=== PATIENT | male | born 1965 | race Hispanic/Latino ===

== ENCOUNTER 2017-08-02 12:58 | Inpatient (IN) | payer MEDICAID, OTHER ==
[2017-08-02 14:27] LABS: BASO % 0.4 % (0.0-2.0); EOS # 0.1 K/uL (0.0-0.7); EOS % 0.8 % (0.0-4.0); HEMOGLOBIN 15.2 g/dL (12.0-18.0); LYMPH # 1.6 K/uL (1.0-4.3); LYMPH % 20.1 % (20.0-40.0); MEAN CELL VOLUME 90.3 fL (80.0-94.0); MEAN CORPUSCULAR HGB CONC 34.3 g/dL (33.0-37.0); MEAN PLATELET VOLUME 9.5 fL (7.2-11.7); MONO # 0.6 K/uL (0.0-0.8); MONO % 7.4 % (0.0-10.0); NEUT # 5.7 K/uL (1.8-7.0); NEUT % 71.3 % (50.0-75.0); RBC 4.91 Mil/uL (4.40-5.90); RED CELL DISTRIBUTION WIDTH 13.9 % (11.5-14.5)
[2017-08-02 14:39] LABS: SQUAMOUS EPITHIAL < 1 /hpf (0-5); URINE BILIRUBIN NEGATIVE (NEGATIVE); URINE BLOOD NEGATIVE (NEGATIVE); URINE CLARITY Hazy (Clear); URINE COLOR Yellow (YELLOW); URINE GLUCOSE (UA) NORMAL (Normal); URINE LEUKOCYTE ESTERASE NEG Leu/uL (Negative); URINE PROTEIN NEGATIVE (NEGATIVE); URINE UROBILINOGEN NORMAL mg/dL (0.2-1.0)
[2017-08-02 14:42] LABS: ACETAMINOPHEN < 10.0 ug/mL (10.0-30.0); SALICYLATE < 1.0 mg/dL 1
[2017-08-02 14:46] LABS: ALB/GLOB RATIO 1.2 (1.0-2.1); ALBUMIN 4.3 g/dL (3.5-5.0); ALT/SGPT 52 U/L (21-72); AST/SGOT 38 U/L (17-59); BLOOD UREA NITROGEN 14 mg/dL (9-20); CALCIUM 9.2 mg/dl (8.6-10.4); GFR AFRICAN-AMERICAN > 60; GFR NON-AFRICAN AMERICAN > 60
[2017-08-02 14:49] LABS: BARBITURATES, UR NEGATIVE (NEGATIVE); PHENCYCLIDINE, UR NEGATIVE (NEGATIVE)
[2017-08-02 14:50] LABS: BENZODIAZEPINES, UR POSITIVE (NEGATIVE); OPIATES, UR POSITIVE (NEGATIVE)
--- NOTE | 2017-08-02 15:07 | C.PDOC ---
Time Seen by Provider: 08/02/17 13:56 Chief Complaint (Nursing): Psychiatric Evaluation History Per: Patient Onset/Duration Of Symptoms: Days Current Symptoms Are (Timing): Still Present Suicide/Self Injury Attempted (Context): None Modifying Factor(s): Narcotics Severity: Moderate Associated Symptoms: Depression, Suicidal Thoughts Additional History Per: Prior Records Past Medical History Reviewed: Historical Data, Nursing Documentation, Vital Signs Vital Signs: Last Vital Signs Temp 97.8 F 08/02/17 13:24 Pulse 81 08/02/17 13:24 Resp 18 08/02/17 13:24 BP 115/78 08/02/17 13:24 Pulse Ox 95 08/02/17 13:24 - Medical History PMH: Anxiety, Bipolar Disorder, Depression, Hepatitis (C) - [facility] DETOXIFICATION SERVICES FOR SUBSTANCE ABUSE TREATMENT (12/31/15) INDIV [employer] FOR SUBSTANCE ABUSE TREATMENT, CONTINUING CARE (03/31/15) INJECT/INFUSE NEC (03/03/13) MEDICATION MANAGEMENT (12/31/15) Family History: States: Unknown Family Hx - Social History Hx Tobacco Use: Yes Hx Alcohol Use: Yes Hx Substance Use: Yes - Immunization History Hx Tetanus Toxoid Vaccination: No Hx Influenza Vaccination: Yes Hx Pneumococcal Vaccination: No Review Of Systems Except As Marked, All Systems Reviewed And Found Negative. Constitutional: Negative for: Fever Cardiovascular: Negative for: Chest Pain Respiratory: Negative for: Shortness of Breath Gastrointestinal: Negative for: Vomiting, Abdominal Pain Musculoskeletal: Negative for: Neck Pain Skin: Negative for: Rash Neurological: Negative for: Weakness, Numbness Psych: Positive for: Depression Physical Exam - Physical Exam Appears: Non-toxic, No Acute Distress Skin: Normal Color, Warm, Dry, No Rash Head: Atraumatic, Normacephalic Eye(s): bilateral: PERRL, EOMI Neck: Normal ROM, Supple Cardiovascular: Rhythm Regular Respiratory: Normal Breath Sounds, No Accessory Muscle Use Gastrointestinal/Abdominal: Soft, No Tenderness Extremity: Normal ROM Neurological/Psych: Oriented x3, Normal Motor, Normal Sensation ED Course And Treatment - Laboratory Results Result Diagrams: 08/02/17 14:22 08/02/17 14:22 Lab Interpretation: No Acute Changes O2 Sat by Pulse Oximetry: 95 Pulse Ox Interpretation: Normal Progress Note: Pt is medically stable for psychiatric admission. Disposition Counseled Patient/Family Regarding: Studies Performed, Diagnosis, Smoking Cessation - Disposition Disposition: HOSPITALIZED Disposition Time: 15:07 Condition: STABLE - Clinical Impression Clinical Impression: Depression, Drug abuse Decision To Admit - Pt Status Changed To: Hospital Disposition Of: Inpatient - Admit Certification Admit to Inpatient:: After my assessment, the patient will require hospitalization for at least two midnights. This is because of the severity of symptoms shown, intensity of services needed, and/or the medical risk in this patient being treated as an outpatient. - InPatient: Physician Admission Certification: I certify that this patient requires 2 or more midnights of care for the following reason:: Psych. - . Bed Request Type: Psychiatry Admitting Physician: Jarrod Nelson Patient Diagnosis: Depression, Drug abuse
--- NOTE | 2017-08-02 16:16 | RAD ---
HISTORY: Psych clearance. h/o TB in 80's. Asymptomatic. COMPARISON: 08/26/2013 FINDINGS: LUNGS: No active pulmonary disease. PLEURA: No significant pleural effusion identified, no pneumothorax apparent. CARDIOVASCULAR: Normal. OSSEOUS STRUCTURES: No significant abnormalities. VISUALIZED UPPER ABDOMEN: Normal. OTHER FINDINGS: None. IMPRESSION: No active disease.
--- NOTE | 2017-08-02 18:50 | PCM.BM ---
<Sabrina Sanchezan - Last Filed: 08/02/17 18:49> Treatment Plan Problems - Problems identified on initial assessmt Depression Date Initiated: 08/02/17 Time Initiated: 18:49 Assessment reference: NA Status: Active Comment: Long Hx of heroin IV abuse Treatment assets and liabiliti Patient Assests: adapts well, cooperative, negotiates basic needs, cognitively intact Patient Liabilities: live alone, substance abuse - Milieu Protocol Maintain good personal hygiene: daily Encourage regular showers, daily Remind patient to perform daily oral care Conduct patient checks and document Observation sheet: Q15 minutes Maintain personal safety: every shift Educate patient to report safety concerns to staff, every shift Monitor environment for contraband/sharps Medication safety: Monitor for expected outcome, potential side effects: every shift, Assess barriers to learning: every shift, Assess readiness for medication education: every shift <Dayana Peraza - Last Filed: 08/03/17 14:59> Family Contact Family involvement: Patient does not wish Family/SO involvement Family contact: Patient declines to allow family contact at present - Goals for Treatment Patient goals for treatment: "I want to go to an [facility]. " Discharge/Continuing Care - Education Needs Education Needs: Patient Medication, Patient Diagnosis/Disease Process, Patient Coping Skills, Patient Aftercare Safety Plan - Discharge Discharge Criteria: Free of Suicidal thoughts, Normal sleep pattern, Ability to care for self, No longer exhibiting s/s of withdrawal, Reduction of target symptoms Discharge to:: Home - Treatment Team Participation Discussed with Family/SO: No Was Patient/Family/SO present at Treatment Team Meeting: Yes <Ilan Conde - Last Filed: 08/03/17 15:00> - Diagnosis (1) Depression Status: Acute Interventions: 08/03/17 15:00 * Assess/adjust medications daily and /or as needed * See patient on an individual basis 7x/week to assess symptoms of depression * Monitor for side effects & effectiveness of medications * (2) Opioid use disorder, severe, dependence Status: Acute Interventions: 08/03/17 15:00 * Assess 7x/week regarding severity of withdrawal * Educate regarding risks, benefits, side effects and alternatives of medications * Use Motivational Interviewing for abstinence * Use CBT for relapse prevention * Medication management for withdrawal symptoms * Encourage medication assisted treatment *
--- NOTE | 2017-08-03 13:48 | PCM.PSYCH ---
Initial Psychiatric Evaluation - Initial Psychiatric Evaluation Type of Admission: Voluntary Legal Status: Capacity Chief Complaint (in patient's own words): "I am very depressed" History of Present Illness and Precipitating Events: The patient is seen, chart reviewed, case discussed. He is well known to the insurance underwriter sales from patient's previous admission. This is a 52-year-old male, single, homeless, unemployed. He stays with friends at times. He comes here with depressive symptoms and suicidal ideation. Currently, he denies feeling suicidal because he is feeling better here. However, he still has anhedonia, low self-esteem and is pessimistic. He states he has no place to go but he will try to get into a rehab. He uses 5-6 bags IV, last use was yesterday. He denies using other drugs but he drinks about 10 cans of beer every day, but denies any withdrawal symptoms. He smokes MJ and uses Xanax "off an on" No seizures He was released from retirement in Jan 2017 and stayed with his mother until he relapsed "quickly." Psychiatric history: He was admitted more than 5 times. Alleged suicide attempt last year. He was on Seroquel, Remeron and Neurontin in the past. Family psych history: None known Medical history: Hepatitis C. Current Medications: Active Medications Generic Name Dose Route Start Last Admin Trade Name Freq PRN Reason Stop Dose Admin Clonidine HCl 0.1 mg 08/02/17 17:40 Catapres PO Q6 PRN opiate withdrawal s/s Cyclobenzaprine HCl 10 mg 08/02/17 17:37 08/03/17 12:34 Flexeril PO 10 mg Q6 PRN Administration Muscle spasm Escitalopram Oxalate 10 mg 08/03/17 12:30 08/03/17 12:25 Lexapro PO 10 mg DAILY PAULINA Administration Ibuprofen 600 mg 08/02/17 17:37 Motrin Tab PO Q6 PRN Pain, moderate (4-7) Nicotine 1 patch 08/02/17 17:45 08/03/17 09:07 Nicoderm Cq TD 1 patch DAILY PAULINA Administration Quetiapine Fumarate 100 mg 08/03/17 12:19 Seroquel PO HS PAULINA Past Psychiatric History - Past Psychiatric History Previous Treatment History: Inpatient Pertinent Medical Hx (Current Medical&Sleep Prob, Allergies): Allergies Allergy/AdvReac Type Severity Reaction Status Date / Time FISH AdvReac Mild nausea/vomi Verified 12/31/15 14:23 t/rash No Known Home Med 08/02/17 Review of Systems - Neurological Neurological: UNREMARKABLE - Psychiatric Psychiatric: Abnormal Sleep Pattern, Anhedonia, Anxiety, Change in Appetite, Depression, Difficulty Concentrating, Irritability. absent: Hallucinations, Homicidal Ideation, Hopelessness, Suicidal Ideation Mental Status Examination - Personal Presentation Personal Presentation: Looks older than stated age - Affect Affect: Constricted - Motor Activity Motor Activity: Calm - Reliability in Providing Information Reliability in Providing Information: Fair - Speech Speech: Organized - Mood Mood: Depressed, Anxious - Formal Thought Process Formal Thought Process: No Impairment - Cognitive Functions Orientation: Person, Place, Situation, Time Sensorium: Alert Attention/Concentration: Attentive Estimate of Intelligence: Average Judgement: Intact, as evidence by: Insight regarding need for hospitalization Memory: Recent intact, as evidence by: Ability to recall events of the day, Remote intact, as evidenced by: Abilit to recall sig. life events - Risk Risk: Withdrawal, Diminished functioning - Strength & Assets Inventory Strength & Assets Inventory: Cooperative - Limitations Limitations: Living alone, Other DSM 5 DX - DSM 5 DSM 5 Diagnosis: Primary: Major depressive disorder-recurrent, severe not psychotic Opioid use disorder- severe Opioid withdrawal Alcohol use d/o Sedative, hypnotic use d/o Cannabis use d/o Personality d/o - unspecified - Recommended/Plan of Treatment Treatment Recommendations and Plan of Treatment: Nixon. depression: -lexapro 10 mg daily -Continue Seroquel 100 mg for irritability depression and insomnia -Psychoeducation and support -Use CBT -Attend groups and activities Opioid use disorder is-withdrawal: -Methadone detox by 20 mg and then go down 5 mg every day -When necessary medications -Attend groups and activities -Use [place] for abstinence and long-term rehabilitation -Consider maintenance medications Alcohol/Benzo use disorder: -Monitor symptoms -Support psychoeducation and use HI -Attend groups and activities 32 minutes Projected ELOS: 5-6 days Prognosis: good with MAT - Smoking Cessation Smoking Cessation Initiated: Yes
--- NOTE | 2017-08-05 11:52 | PCM.PYCHPN ---
Psychiatric Progress Note - Psychiatric Progress Note Patient seen today, length of contact: 15 min Patient Chief Complaint: "I am depressed' Problems Identified/Issues Discussed: The pt is seen, chart reviewed, case discussed with staff. The pt is compliant with medications and reports no side-effects. Symptoms are improving but needs more time to stabilize. After care discussed, support and psychoeducation given. Medication Change: Yes Medical Record Reviewed: Yes Mental Status Examination - Cognitive Function Orientation: Person, Place, Situation, Time Memory: Intact Attention: WNL Concentration: Poor Association: WNL Fund of Knowledge: WNL - Mood Mood: Depressed, Anxious - Affect Affect: Constricted - Speech Speech: Appropriate - Formal Thought Process Formal Thought Process: No Impairment - Suicidal Ideation Suicidal Ideation: No - Homicidal Ideation Homicidal Ideation: No Goal/Treatment Plan - Goal/Treatment Plan Need for Continued Stay: Severe depression anxiety, Discharge may exacerbated symptoms, Severe functional impairment Progress Toward Problem(s) and Goals/Treatment Plan: Nixon. depression: -lexapro 10 mg daily -Continue Seroquel 100 mg for irritability depression and insomnia -Psychoeducation and support -Use CBT -Attend groups and activities Opioid use disorder is-withdrawal: -Methadone detox by 20 mg and then go down 5 mg every day -When necessary medications -Attend groups and activities -Use [place] for abstinence and long-term rehabilitation -Consider maintenance medications Alcohol/Benzo use disorder: -Monitor symptoms -Support psychoeducation and use MD -Attend groups and activities
--- NOTE | 2017-08-05 11:53 | PCM.PYCHPN ---
Psychiatric Progress Note - Psychiatric Progress Note Patient seen today, length of contact: 15 min Patient Chief Complaint: "I am still depressed" Problems Identified/Issues Discussed: The pt is seen, chart reviewed, case discussed with staff. Support given, CBT and SC used briefly No new symptoms reported, improving slowly and needs more time No SEs from medications, risks discussed. After care discussed - interested in subx tx at [facility] bacitracin ordered for mild inflammation in iv torres Medication Change: Yes (detox changes daily) Medical Record Reviewed: Yes Mental Status Examination - Cognitive Function Orientation: Person, Place, Situation, Time Memory: Intact Attention: WNL Concentration: Poor Association: WNL Fund of Knowledge: WNL - Mood Mood: Depressed, Anxious - Affect Affect: Constricted - Speech Speech: Appropriate - Formal Thought Process Formal Thought Process: No Impairment - Suicidal Ideation Suicidal Ideation: No - Homicidal Ideation Homicidal Ideation: No Goal/Treatment Plan - Goal/Treatment Plan Need for Continued Stay: Severe depression anxiety, Discharge may exacerbated symptoms, Severe functional impairment Progress Toward Problem(s) and Goals/Treatment Plan: Nixon. depression: -lexapro 10 mg daily -Continue Seroquel 200 mg for irritability depression and insomnia -Psychoeducation and support -Use CBT -Attend groups and activities Opioid use disorder is-withdrawal: -Methadone detox by 20 mg and then go down 5 mg every day -When necessary medications -Attend groups and activities -Use [place] for abstinence and long-term rehabilitation -Consider maintenance medications Alcohol/Benzo use disorder: -Monitor symptoms -Support psychoeducation and use SC -Attend groups and activities Estimated Date of D/C: 08/09/17
[2017-08-05] MEDS: Bacitracin 500 Units/gm Oint Foilpak UD TOP SCH ×3 (12:29→17:36)
[2017-08-06] MEDS: Bacitracin Ointment 30 GM TUBE TOP SCH ×2 (10:20→17:07)
--- NOTE | 2017-08-06 12:55 | PCM.PYCHPN ---
Psychiatric Progress Note - Psychiatric Progress Note Patient seen today, length of contact: 15 min Patient Chief Complaint: I am feeling little better.' Problems Identified/Issues Discussed: Patient seen and evaluated, chart reviewed and discussed with the nurse. As per the staff, patient still appears isolated, depressed and withdrawn. Patient still reports depressed mood but reports some improvement in his feelings of hopelessness or helplessness. He reports withdrawal symptoms including cramps, back pain and sweating. He denies any auditory or visual hallucinations or any psychotic symptoms. He needs some more time for stabilization. He is compliant with his medications and denies any side effects. Supportive therapy and psychoeducation were given. Medication Change: Yes (detox changes daily) Medical Record Reviewed: Yes Mental Status Examination - Cognitive Function Orientation: Person, Place, Situation, Time Memory: Intact Attention: WNL Concentration: Poor Association: WNL Fund of Knowledge: WNL - Mood Mood: Depressed, Anxious - Affect Affect: Constricted - Speech Speech: Appropriate - Formal Thought Process Formal Thought Process: No Impairment - Suicidal Ideation Suicidal Ideation: No - Homicidal Ideation Homicidal Ideation: No Goal/Treatment Plan - Goal/Treatment Plan Need for Continued Stay: Severe depression anxiety, Discharge may exacerbated symptoms, Severe functional impairment Progress Toward Problem(s) and Goals/Treatment Plan: Nixon. depression: -lexapro 10 mg daily -Continue Seroquel 200 mg for irritability depression and insomnia -Psychoeducation and support -Use CBT -Attend groups and activities Opioid use disorder is-withdrawal: -Methadone detox by 20 mg and then go down 5 mg every day -When necessary medications -Attend groups and activities -Use DE for abstinence and long-term rehabilitation -Consider maintenance medications Alcohol/Benzo use disorder: -Monitor symptoms -Support psychoeducation and use DE -Attend groups and activities Estimated Date of D/C: 08/09/17
[2017-08-07] MEDS: Bacitracin Ointment 30 GM TUBE TOP SCH ×2 (09:39→17:01)
--- NOTE | 2017-08-07 10:48 | PCM.PYCHPN ---
Psychiatric Progress Note - Psychiatric Progress Note Patient seen today, length of contact: 15 min Patient Chief Complaint: I am feeling little better.' Problems Identified/Issues Discussed: Patient seen and evaluated, chart reviewed and discussed with the nurse. Patient reports some improvement in his depressed mood but reports some improvement in his feelings of hopelessness or helplessness. He reports some improvement in the withdrawal symptoms. He denies any auditory or visual hallucinations or any psychotic symptoms. He needs some more time for stabilization. He is compliant with his medications and denies any side effects. Supportive therapy and psychoeducation were given. Medication Change: Yes (detox changes daily) Medical Record Reviewed: Yes Mental Status Examination - Cognitive Function Orientation: Person, Place, Situation, Time Memory: Intact Attention: WNL Concentration: Poor Association: WNL Fund of Knowledge: WNL - Mood Mood: Depressed, Anxious - Affect Affect: Constricted - Speech Speech: Appropriate - Formal Thought Process Formal Thought Process: No Impairment - Suicidal Ideation Suicidal Ideation: No - Homicidal Ideation Homicidal Ideation: No Goal/Treatment Plan - Goal/Treatment Plan Need for Continued Stay: Severe depression anxiety, Discharge may exacerbated symptoms, Severe functional impairment Progress Toward Problem(s) and Goals/Treatment Plan: Nixon. depression: -lexapro 10 mg daily -Continue Seroquel 200 mg for irritability depression and insomnia -Gbapentin 400 mg PO ITD -Psychoeducation and support -Use CBT -Attend groups and activities Opioid use disorder is-withdrawal: -Methadone detox by 20 mg and then go down 5 mg every day -When necessary medications -Attend groups and activities -Use [place] for abstinence and long-term rehabilitation -Consider maintenance medications Alcohol/Benzo use disorder: -Monitor symptoms -Support psychoeducation and use [place] -Attend groups and activities Estimated Date of D/C: 08/09/17 - Smoking Cessation Smoking Cessation Initiated: No
[2017-08-08 06:58] VITALS: RESP 20
[2017-08-08] MEDS: Bacitracin Ointment 30 GM TUBE TOP SCH ×2 (09:16→17:34)
--- NOTE | 2017-08-08 14:12 | PCM.PYCHPN ---
Psychiatric Progress Note - Psychiatric Progress Note Patient seen today, length of contact: 15 min Patient Chief Complaint: "I am better" Problems Identified/Issues Discussed: The pt is seen, chart reviewed, case discussed with staff. The pt is compliant with medications and reports no side-effects. Symptoms are improving but needs more time to stabilize. After care discussed, support and psychoeducation given. Medication Change: Yes (detox changes daily) Medical Record Reviewed: Yes Mental Status Examination - Cognitive Function Orientation: Person, Place, Situation, Time Memory: Intact Attention: WNL Concentration: Poor Association: WNL Fund of Knowledge: WNL - Mood Mood: Depressed - Affect Affect: Flat - Speech Speech: Appropriate - Formal Thought Process Formal Thought Process: No Impairment - Suicidal Ideation Suicidal Ideation: No - Homicidal Ideation Homicidal Ideation: No Goal/Treatment Plan - Goal/Treatment Plan Need for Continued Stay: Severe depression anxiety, Discharge may exacerbated symptoms, Severe functional impairment Progress Toward Problem(s) and Goals/Treatment Plan: Nixon. depression: -lexapro 10 mg daily -Continue Seroquel 200 mg for irritability depression and insomnia -Psychoeducation and support -Use CBT -Attend groups and activities Opioid use disorder is-withdrawal: -Methadone detox by 20 mg and then go down 5 mg every day -When necessary medications -Attend groups and activities -Use [place] for abstinence and long-term rehabilitation -Consider maintenance medications Alcohol/Benzo use disorder: -Monitor symptoms -Support psychoeducation and use WA -Attend groups and activities Estimated Date of D/C: 08/09/17
--- NOTE | 2017-08-08 14:29 | PCM.BM ---
<Dayana Peraza - Last Filed: 08/08/17 14:27> Treatment Plan Problems - Problems identified on initial assessmt Depression Date Initiated: 08/02/17 Time Initiated: 18:49 Assessment reference: NA Status: Active Comment: Long Hx of heroin IV abuse Treatment assets and liabiliti Patient Assests: adapts well, cooperative, negotiates basic needs, cognitively intact Patient Liabilities: live alone, substance abuse - Milieu Protocol Maintain good personal hygiene: daily Encourage regular showers, daily Remind patient to perform daily oral care Conduct patient checks and document Observation sheet: Q15 minutes Maintain personal safety: every shift Educate patient to report safety concerns to staff, every shift Monitor environment for contraband/sharps Medication safety: Monitor for expected outcome, potential side effects: every shift, Assess barriers to learning: every shift, Assess readiness for medication education: every shift Milieu Narrative: Nixon. depression: -lexapro 10 mg daily -Continue Seroquel 200 mg for irritability depression and insomnia -Psychoeducation and support -Use CBT -Attend groups and activities Opioid use disorder is-withdrawal: -Methadone detox by 20 mg and then go down 5 mg every day -When necessary medications -Attend groups and activities -Use [place] for abstinence and long-term rehabilitation -Consider maintenance medications Alcohol/Benzo use disorder: -Monitor symptoms -Support psychoeducation and use [place] -Attend groups and activities Family Contact Family involvement: Patient does not wish Family/SO involvement Family contact: Patient declines to allow family contact at present - Goals for Treatment Patient goals for treatment: "I want to go to an [facility]. " Discharge/Continuing Care - Education Needs Education Needs: Patient Medication, Patient Diagnosis/Disease Process, Patient Coping Skills, Patient Aftercare Safety Plan - Discharge Discharge Criteria: Free of Suicidal thoughts, Normal sleep pattern, Ability to care for self, No longer exhibiting s/s of withdrawal, Reduction of target symptoms Discharge to:: Home - Treatment Team Participation Patient/Family/SO Statement: Nixon. depression: -lexapro 10 mg daily -Continue Seroquel 200 mg for irritability depression and insomnia -Psychoeducation and support -Use CBT -Attend groups and activities Opioid use disorder is-withdrawal: -Methadone detox by 20 mg and then go down 5 mg every day -When necessary medications -Attend groups and activities -Use [place] for abstinence and long-term rehabilitation -Consider maintenance medications Alcohol/Benzo use disorder: -Monitor symptoms -Support psychoeducation and use [place] -Attend groups and activities Discussed with Family/SO: No Was Patient/Family/SO present at Treatment Team Meeting: Yes Treatment Plan Review Family/SO/Caregiver participation: No - Problem Depression Time Initiated: 18:49 - Discharge / Continuing Care Discharge to:: Home Behavioral Health Services: Intensive Outpatient Health Needs: Alcohol/Drug treatment <Rita Norman - Last Filed: 08/08/17 14:54> Treatment Plan Review - Problem Depression Date Initiated: 08/08/17 Time Initiated: 14:54 Progress toward outcomes: improved
[2017-08-09 06:49] VITALS: TEMP 97.8; O2SAT 98
[2017-08-09 09:39] VITALS: BP 113/73; PULSE 74
--- NOTE | 2017-08-09 09:51 | PCM.PYCHDC ---
Mental Status Examination - Mental Status Examination Orientation: Person Memory: Intact Mood: Neutral Affect: Broad Speech: Appropriate Attention: WNL Concentration: WNL Association: WNL Fund of Knowledge: WNL Formal Thought Process: No Impairment Suicidal Ideation: No Current Homicidal Ideation?: No Discharge Summary - Discharge Note Reason for Hospitalization: Depression, Suicidal Ideation, and Opioid Use Disorder detox Consultations:: List each consultation separately and include: 1. Reason for request. 2. Findings. 3. Follow-up Summary of Hospital Course include:: 1. Description of specific treatment plan utilized for patients during their course of treatmen. 2. Summarize the time- course for resolution of acute symptoms and/or regressed behaviors. 3. Describe issues identified and worked on during hospitalization. 4. Describe medication utilized. 5. Describe medical problems identified and treated. 6. Reassessment of suicide risk Summary of Hospital Course: On Admission: The patient is seen, chart reviewed, case discussed. He is well known to the medical technical writer from patient's previous admission. This is a 52-year-old male, single, homeless, unemployed. He stays with friends at times. He comes here with depressive symptoms and suicidal ideation. Currently, he denies feeling suicidal because he is feeling better here. However, he still has anhedonia, low self-esteem and is pessimistic. He states he has no place to go but he will try to get into a rehab. He uses 5-6 bags IV, last use was yesterday. He denies using other drugs but he drinks about 10 cans of beer every day, but denies any withdrawal symptoms. He smokes MJ and uses Xanax "off an on" No seizures He was released from group home in Jan 2017 and stayed with his mother until he relapsed "quickly." Psychiatric history: He was admitted more than 5 times. Alleged suicide attempt last year. He was on Seroquel, Remeron and Neurontin in the past. Family psych history: None known Medical history: Hepatitis C. Hospital course: The pt was admitted and started on treatment with psychotherapy, support, psychoeducation and medications, including Subutex taper, Lexapro 10mg, Neurontin 400mg TID, Flexeril 10mg Q8, Clonidine 0.1mg Q6 PRN, and Seroquel 200mg HS. NV and CBT used. The pt attended groups and activities, as well as milieu therapy. Patient was sent for an obstetric ultrasound and results were normal. All the risks and benefits ofmedications are discussed and the patient understood and agreed. The pt improved with the treatments provided. After care discussed with the patient. He will go to [facility] for suboxone treatment. - Diagnosis (1) Depression Status: Acute (2) Opioid use disorder, severe, dependence Status: Acute - Final Diagnosis (DSM 5) Condition upon Discharge: STABLE DSM 5: Major depressive disorder-recurrent, severe not psychotic Opioid use disorder- severe Opioid withdrawal Alcohol use d/o Sedative, hypnotic use d/o Cannabis use d/o Personality d/o - unspecified Disposition: HOME/ ROUTINE Follow-up Treatment Plan: Continue below medications after discharge. Follow after care plan as discussed. Patient has appointment at [facility] for subutex maintenance program. Use relapse prevention skills. Return to ER or call 911 if suicidal, homicidal or symptoms relapse. Stay away from stress, alcohol, and drugs. See primary doctor regularly and get labs. Prescriptions/Medication Reconciliation: Escitalopram [Lexapro] 10 mg PO DAILY #30 tab Gabapentin [Neurontin] 400 mg PO TID #90 cap QUEtiapine [SEROquel] 200 mg PO HS #30 tab
[2017-08-09] MEDS: Bacitracin Ointment 30 GM TUBE TOP SCH (10:41)
== END 2017-08-09 11:41 | disposition home or self-care (01) | DRG 430 ==
LOC: C.ER 12:58 → C.9E 15:08 → C.5E 17:00
PROVIDERS: ADMIT Psychiatry & Neurology Psychiatry; ATTEND Psychiatry & Neurology Psychiatry
PROC: HZ2ZZZZ Detoxification Services for Substance Abuse Treatment (ICD-10-PCS; principal; 2017-08-02)
DX: F33.2 Major depressive disorder, recurrent severe without psychotic features (principal); F11.23 Opioid dependence with withdrawal; F12.90 Cannabis use, unspecified, uncomplicated; Z59.0 Homelessness; G47.00 Insomnia, unspecified; Z87.891 Personal history of nicotine dependence

== ENCOUNTER 2017-08-17 16:50 | Inpatient (IN) | payer MEDICAID, OTHER ==
[2017-08-17 16:50] VITALS: BMI 29.7
--- NOTE | 2017-08-17 18:44 | C.PDOC ---
History Of Present Illness 52 year old male, whose PMHx includes heroin abuse, depression and bipolar disorder, presents to the ED for psychiatric evaluation. Patient was evaluated at [facility] this morning for heroin detox and request for rehab. Patient states he was discharged from [facility]. Patient states he attempted suicidal ideation this morning by injecting 5 bags of heroin. Patient is requesting termite control technician rehab. He denies homicidal ideation and has no further medical complaints at this time. Time Seen by Provider: 08/17/17 17:42 Chief Complaint (Nursing): Psychiatric Evaluation History Per: Patient History/Exam Limitations: no limitations Onset/Duration Of Symptoms: Hrs Current Symptoms Are (Timing): Still Present Suicide/Self Injury Attempted (Context): None Modifying Factor(s): Narcotics (heroin) Associated Symptoms: denies: Suicidal Thoughts, Suicidal Plan Involuntary Hold By: None Recent travel outside of the [place]: No Additional History Per: Patient Past Medical History Reviewed: Historical Data, Nursing Documentation, Vital Signs Vital Signs: Last Vital Signs Temp 97.8 F 08/17/17 17:14 Pulse 77 08/17/17 17:14 Resp 18 08/17/17 17:14 BP 113/78 08/17/17 17:14 Pulse Ox 97 08/17/17 18:57 - Medical History PMH: Anxiety, Bipolar Disorder, Depression, Hepatitis (C) Denies: Diabetes, HIV, HTN, Seizures, Sexually Transmitted Disease Surgical History: No Surg Hx - [facility] Procedures DETOXIFICATION SERVICES FOR SUBSTANCE ABUSE TREATMENT (08/02/17) INDIV REPAIR COIL WINDER FOR SUBSTANCE ABUSE TREATMENT, CONTINUING CARE (03/31/15) INJECT/INFUSE NEC (03/03/13) MEDICATION MANAGEMENT (12/31/15) Family History: States: Unknown Family Hx - Social History Hx Tobacco Use: Yes Hx Alcohol Use: Yes Hx Substance Use: Yes - Immunization History Hx Tetanus Toxoid Vaccination: No Hx Influenza Vaccination: Yes Hx Pneumococcal Vaccination: No Review Of Systems Psych: Positive for: Suicidal ideation Physical Exam - Physical Exam Appears: Non-toxic, No Acute Distress Skin: Normal Color, Warm, Dry Head: Atraumatic, Normacephalic Eye(s): bilateral: Normal Inspection Oral Mucosa: Moist Neck: Supple Chest: Symmetrical, No Deformity, No Tenderness Cardiovascular: Rhythm Regular, No Murmur Respiratory: Normal Breath Sounds, No Rales, No Rhonchi, No Wheezing Extremity: Normal ROM, Capillary Refill (less than 2 seconds ) Neurological/Psych: Oriented x3, Normal Speech, Normal Cognition ED Course And Treatment - Laboratory Results Result Diagrams: 08/17/17 18:54 08/17/17 18:54 Lab Interpretation: No Acute Changes O2 Sat by Pulse Oximetry: 97 (on RA) Pulse Ox Interpretation: Normal Progress Note: Bloodwork and urinalysis ordered and reviewed. Patient evaluated by crisis. He is medically cleared for psychiatric admisison. Reevaluation Time: 19:48 Reassessment Condition: Unchanged Disposition - Disposition Disposition: HOSPITALIZED Disposition Time: 19:49 Condition: STABLE - POA Present On Arrival: None - Clinical Impression Clinical Impression: Depressive disorder, Opiate dependence - Scribe Statement The provider has reviewed the documentation as recorded by the Scribe (Lisa Price) Provider Attestation: All medical record entries made by the Scribe were at my direction and personally dictated by me. I have reviewed the chart and agree that the record accurately reflects my personal performance of the history, physical exam, medical decision making, and the department course for this patient. I have also personally directed, reviewed, and agree with the discharge instructions and disposition.
[2017-08-17 19:00] LABS: BASO % 0.2 % (0.0-2.0); EOS # 0.1 K/uL (0.0-0.7); EOS % 1.4 % (0.0-4.0); HEMOGLOBIN 14.9 g/dL (12.0-18.0); LYMPH # 1.4 K/uL (1.0-4.3); LYMPH % 19.1 % (20.0-40.0); MEAN CORPUSCULAR HGB CONC 34.5 g/dL (33.0-37.0); MEAN PLATELET VOLUME 9.3 fL (7.2-11.7); MONO # 0.6 K/uL (0.0-0.8); MONO % 8.3 % (0.0-10.0); NEUT # 5.4 K/uL (1.8-7.0); RBC 4.8 Mil/uL (4.40-5.90); RED CELL DISTRIBUTION WIDTH 13.9 % (11.5-14.5); WHITE BLOOD COUNT 7.6 K/uL (4.8-10.8)
[2017-08-17 19:12] LABS: SQUAMOUS EPITHIAL < 1 /hpf (0-5); URINE BILIRUBIN NEGATIVE (NEGATIVE); URINE BLOOD NEGATIVE (NEGATIVE); URINE CLARITY Hazy (Clear); URINE COLOR Yellow (YELLOW); URINE GLUCOSE (UA) NORMAL (Normal); URINE LEUKOCYTE ESTERASE NEG Leu/uL (Negative); URINE PROTEIN NEGATIVE (NEGATIVE); URINE UROBILINOGEN NORMAL mg/dL (0.2-1.0)
[2017-08-17 19:22] LABS: BARBITURATES, UR NEGATIVE (NEGATIVE); PHENCYCLIDINE, UR NEGATIVE (NEGATIVE)
[2017-08-17 19:30] LABS: BENZODIAZEPINES, UR POSITIVE (NEGATIVE); OPIATES, UR POSITIVE (NEGATIVE)
[2017-08-17 19:30] LABS: ALB/GLOB RATIO 1.1 (1.0-2.1); ALBUMIN 4.5 g/dL (3.5-5.0); ALT/SGPT 49 U/L (21-72); AST/SGOT 58 U/L (17-59); BLOOD UREA NITROGEN 16 mg/dL (9-20); CALCIUM 9.1 mg/dl (8.6-10.4); GFR AFRICAN-AMERICAN > 60; GFR NON-AFRICAN AMERICAN > 60
--- NOTE | 2017-08-17 23:03 | PCM.BM ---
<Leigh Vickers - Last Filed: 08/17/17 23:02> Treatment Plan Problems - Problems identified on initial assessmt Depression Date Initiated: 08/17/17 Time Initiated: 21:00 Assessment reference: NA Status: Active Opiates Abuse Date Initiated: 08/17/17 Time Initiated: 21:00 Assessment reference: NA Status: Active Treatment assets and liabiliti Patient Assests: adapts well, cooperative, negotiates basic needs, cognitively intact Patient Liabilities: substance abuse (Opiates, Benzo, Marijuana) - Milieu Protocol Maintain good personal hygiene: daily Encourage regular showers, daily Remind patient to perform daily oral care, every shift Assist patient to perform ADL's Conduct patient checks and document Observation sheet: Q15 minutes Maintain personal safety: every shift Educate patient to report safety concerns to staff, every shift Monitor environment for contraband/sharps Medication safety: Monitor for expected outcome, potential side effects: every shift, Assess barriers to learning: every shift, Assess readiness for medication education: every shift <Ilan Conde - Last Filed: 08/18/17 12:37> - Diagnosis (1) Depressive disorder Status: Acute Interventions: 08/18/17 12:37 * Assess/adjust medications daily and /or as needed * See patient on an individual basis 7x/week to assess symptoms of depression * Monitor for side effects & effectiveness of medications * (2) Opiate dependence Status: Acute Interventions: 08/18/17 12:37 * Assess 7x/week regarding severity of withdrawal * Educate regarding risks, benefits, side effects and alternatives of medications * Use Motivational Interviewing for abstinence * Use CBT for relapse prevention * Medication management for withdrawal symptoms * Encourage medication assisted treatment * <Dayana Peraza - Last Filed: 08/19/17 14:30> Family Contact Family involvement: Famliy/SO not involved Family contact: Patient declines to allow family contact at present - Goals for Treatment Patient goals for treatment: "I want to go to an outpatient program." Discharge/Continuing Care - Education Needs Education Needs: Patient Medication, Patient Diagnosis/Disease Process - Discharge Discharge Criteria: Free of Suicidal thoughts, Ability to care for self, No longer exhibiting s/s of withdrawal, Reduction of target symptoms Discharge to:: Substance Abuse Rehab - Treatment Team Participation Discussed with Family/SO: No Was Patient/Family/SO present at Treatment Team Meeting: Yes
--- NOTE | 2017-08-18 11:02 | PCM.PSYCH ---
Initial Psychiatric Evaluation - Initial Psychiatric Evaluation Type of Admission: Voluntary Legal Status: Capacity Chief Complaint (in patient's own words): "I relapsed, I felt depressed" History of Present Illness and Precipitating Events: The patient is seen, chart reviewed, case discussed. He is well known to the narrative writer from patient's previous admissions. This is a 52-year-old male, single, homeless, unemployed. He stays with friends at times, but recently he was discharged from us and was staying with his mother. He claims he missed the [facility] outpatient appointment where he would get suboxone, "with two hours." They told him to call back to reschedule but he just relapsed. Then he OD'ed in his mother's apartment and he can no longer return there. She is very scared and concerned, and besides, it's a nursing home facility and he was not supposed to be there. He had more depression and SI with a plan to OD on drugs. Currently, however, he is more optimistic, seeking help, future-oriented, and denies SI/SP. However, he still has anhedonia, low self-esteem and is withdrawing. He states he has no place to go but he will try to get into a rehab. He uses 10 bags IV, last use was yesterday. He denies using other drugs but he drinks about 10 cans of beer every day, but denies any withdrawal symptoms. He smokes MJ and uses Xanax "off an on" again. No seizures. He was released from alf in Jan 2017 and stayed with his mother until he relapsed "quickly." Psychiatric history: He was admitted more than 5 times. Alleged suicide attempt last year. He was on Seroquel, Remeron and Neurontin in the past. Family psych history: None known Medical history: Hepatitis C. Current Medications: Active Medications Generic Name Dose Route Start Last Admin Trade Name Freq PRN Reason Stop Dose Admin Hydroxyzine HCl 50 mg 08/18/17 01:07 Atarax PO Q6 PRN Anxiety Quetiapine Fumarate 200 mg 08/17/17 22:00 08/17/17 21:43 Seroquel PO 200 mg HS PAULINA Administration Trazodone HCl 50 mg 08/18/17 01:07 Desyrel PO HS PRN Sleep Past Psychiatric History - Past Psychiatric History Previous Treatment History: Inpatient Pertinent Medical Hx (Current Medical&Sleep Prob, Allergies): Allergies Allergy/AdvReac Type Severity Reaction Status Date / Time FISH AdvReac Mild nausea/vomi Verified 08/17/17 17:14 t/rash Escitalopram [Lexapro] 10 mg PO DAILY #30 tab 08/09/17 Gabapentin [Neurontin] 400 mg PO TID #90 cap 08/09/17 QUEtiapine [SEROquel] 200 mg PO HS #30 tab 08/09/17 Review of Systems - Neurological Neurological: Tremor - Psychiatric Psychiatric: Abnormal Sleep Pattern, Anxiety, Depression, Difficulty Concentrating, Mood Swings. absent: Hallucinations, Homicidal Ideation, Suicidal Ideation Mental Status Examination - Personal Presentation Personal Presentation: Looks stated age - Affect Affect: Constricted - Motor Activity Motor Activity: Calm - Reliability in Providing Information Reliability in Providing Information: Good - Speech Speech: Organized - Mood Mood: Depressed, Anxious - Formal Thought Process Formal Thought Process: No Impairment - Cognitive Functions Orientation: Person, Place, Situation, Time Sensorium: Alert Attention/Concentration: Attentive Estimate of Intelligence: Average Judgement: Intact, as evidence by: Insight regarding need for hospitalization Memory: Recent intact, as evidence by: Ability to recall events of the day, Remote intact, as evidenced by: Abilit to recall sig. life events - Risk Risk: Withdrawal, Diminished functioning - Strength & Assets Inventory Strength & Assets Inventory: Cooperative - Limitations Limitations: Other DSM 5 DX - DSM 5 DSM 5 Diagnosis: Primary: Major depressive disorder-recurrent, severe not psychotic Opioid use disorder- severe Opioid withdrawal, mild Alcohol use d/o Sedative, hypnotic use d/o - mild Cannabis use d/o Personality d/o - unspecified - Recommended/Plan of Treatment Treatment Recommendations and Plan of Treatment: Nixon. depression: -lexapro 10 mg daily -Continue Seroquel 100 mg for irritability depression and insomnia -Psychoeducation and support -Use CBT -Attend groups and activities Opioid use disorder is-withdrawal: -Methadone detox by 20 mg and then go down 5 mg every day -When necessary medications -Attend groups and activities -Use DC for abstinence and long-term rehabilitation -Consider maintenance medications Alcohol/Benzo use disorder: -Monitor symptoms -Support psychoeducation and use DC -Attend groups and activities 32 minutes Projected ELOS: 4 days Prognosis: fair Discharge Plan and Discharge Criteria: Rehab or IOP/half-way Consider MAT - Smoking Cessation Smoking Cessation Initiated: Yes
[2017-08-18] MEDS ORDERED: Aluminum Hydroxide/Magnesium Hydroxide Susp (30 mL) PO PRN (11:08)
--- NOTE | 2017-08-19 12:34 | PCM.PYCHPN ---
Psychiatric Progress Note - Psychiatric Progress Note Patient seen today, length of contact: 17 min Patient Chief Complaint: "I am depressed" Medication Change: Yes Medical Record Reviewed: Yes Mental Status Examination - Cognitive Function Orientation: Person, Place, Situation, Time Memory: Intact Attention: WNL Concentration: Poor Association: WNL Fund of Knowledge: WNL - Mood Mood: Depressed, Anxious - Affect Affect: Constricted - Speech Speech: Appropriate - Formal Thought Process Formal Thought Process: No Impairment - Suicidal Ideation Suicidal Ideation: No - Homicidal Ideation Homicidal Ideation: No Goal/Treatment Plan - Goal/Treatment Plan Need for Continued Stay: Discharge may exacerbated symptoms, Severe functional impairment Progress Toward Problem(s) and Goals/Treatment Plan: Nixon. depression: -lexapro 10 mg daily -Continue Seroquel 200 mg for irritability depression and insomnia -Psychoeducation and support -Use CBT -Attend groups and activities Opioid use disorder is-withdrawal: -Methadone detox -When necessary medications -Attend groups and activities -Use IL for abstinence and long-term rehabilitation -Consider maintenance medications Alcohol/Benzo use disorder: -Monitor symptoms -Support psychoeducation and use IL -Attend groups and activities
[2017-08-19] MEDS: Bacitracin 500 Units/gm Oint Foilpak UD TOP ONE ×2 (16:45→17:20)
[2017-08-20] MEDS ORDERED: Bacitracin Ointment 30 GM TUBE TOP SCH (06:30)
[2017-08-20] MEDS ORDERED: Bacitracin Ointment 30 GM TUBE TOP PRN (06:32)
--- NOTE | 2017-08-20 17:21 | PCM.PYCHPN ---
Psychiatric Progress Note - Psychiatric Progress Note Patient seen today, length of contact: 17 min Patient Chief Complaint: "I am still not well" Problems Identified/Issues Discussed: The pt is seen, chart reviewed, case discussed with staff. Support given, CBT and ME used briefly No new symptoms reported, improving slowly and needs more time No SEs from medications, risks discussed. After care discussed, he is OK with going to [facility] in [place] Asked for med increase due to ongoing depression/anxiety Medication Change: Yes (increase lexapro) Medical Record Reviewed: Yes Mental Status Examination - Cognitive Function Orientation: Person, Place, Situation, Time Memory: Intact Attention: WNL Concentration: Poor Association: WNL Fund of Knowledge: WNL - Mood Mood: Depressed, Anxious - Affect Affect: Constricted - Speech Speech: Appropriate - Formal Thought Process Formal Thought Process: No Impairment - Suicidal Ideation Suicidal Ideation: No - Homicidal Ideation Homicidal Ideation: No Goal/Treatment Plan - Goal/Treatment Plan Need for Continued Stay: Discharge may exacerbated symptoms, Severe functional impairment Progress Toward Problem(s) and Goals/Treatment Plan: Nixon. depression: -lexapro 20 mg daily -Continue Seroquel 200 mg for irritability depression and insomnia -Psychoeducation and support -Use CBT -Attend groups and activities Opioid use disorder is-withdrawal: -Methadone detox -When necessary medications -Attend groups and activities -Use ME for abstinence and long-term rehabilitation -Consider maintenance medications Alcohol/Benzo use disorder: -Monitor symptoms -Support psychoeducation and use ME -Attend groups and activities
--- NOTE | 2017-08-22 11:24 | PCM.PYCHPN ---
Psychiatric Progress Note - Psychiatric Progress Note Patient seen today, length of contact: 15n Patient Chief Complaint: I'M NOT FEELING ANY BETTER Problems Identified/Issues Discussed: PT SEEN AND EXAMINED DISCUSSED WITH STAFF RXPLANATION ABBOUT ANTIDEPRESSANTSWORK INSOMNUA ISCOMMOM IN WITHDRAWAL PAWS Medical Problems: NOTHING ACUTE Diagnostic Results: REVIEWED DSM 5 Symptoms Update: ANERGY AVOLITION ANHEDONIA Medication Change: No Medical Record Reviewed: Yes Mental Status Examination - Cognitive Function Orientation: Person, Place, Situation, Time Memory: Intact Attention: WNL Concentration: WNL Association: WNL Fund of Knowledge: WNL - Mood Mood: Depressed, Anxious - Affect Affect: Constricted - Speech Speech: Appropriate - Formal Thought Process Formal Thought Process: No Impairment - Suicidal Ideation Suicidal Ideation: No - Homicidal Ideation Homicidal Ideation: No Goal/Treatment Plan - Goal/Treatment Plan Need for Continued Stay: Discharge may exacerbated symptoms, Severe functional impairment Progress Toward Problem(s) and Goals/Treatment Plan: MAJOR DEPRESSIVE DISORDER LEXAPRO GROUP [facility] RECREATIONAL THERAPY SUPPORTIVE PSYCHOTHERAPY OPIATE WITHDRAWAL METHADONE TAPER OPIATE USE DISORDER MO CBT GROUP MILIEU RECREATIONAL THERAPY SUPPORTIVE SUPPORTIVE PSYCHOTHERAPY Estimated Date of D/C: 08/24/17
--- NOTE | 2017-08-22 13:58 | PCM.PYCHPN ---
Psychiatric Progress Note - Psychiatric Progress Note Patient seen today, length of contact: 16 min Patient Chief Complaint: "I am feeling ok" Problems Identified/Issues Discussed: The pt is seen, chart reviewed, case discussed with staff. Support given, CBT and MS used briefly No new symptoms reported, improving slowly and needs more time No SEs from medications, risks discussed. After care discussed Patient appeared to be doing better but still says he is depressed. He now rejects all rehab/partial options and will just "go [place]" to his family where he doesn't know any dealer He is refusing trazodone claiming it keeps him awake Medication Change: Yes (dc traz.) Medical Record Reviewed: Yes Mental Status Examination - Cognitive Function Orientation: Person, Place, Situation, Time Memory: Intact Attention: WNL Concentration: WNL Association: WNL Fund of Knowledge: WNL - Mood Mood: Depressed, Anxious - Affect Affect: Constricted - Speech Speech: Appropriate - Formal Thought Process Formal Thought Process: No Impairment - Suicidal Ideation Suicidal Ideation: No - Homicidal Ideation Homicidal Ideation: No Goal/Treatment Plan - Goal/Treatment Plan Need for Continued Stay: Discharge may exacerbated symptoms, Severe functional impairment Progress Toward Problem(s) and Goals/Treatment Plan: Continue medications Support and psychoeducation daily Attend groups and activities daily After care planning by L[facility] Estimated Date of D/C: 08/24/17
[2017-08-23 06:52] VITALS: BP 107/71; PULSE 83; RESP 20; TEMP 98.6; O2SAT 100
--- NOTE | 2017-08-23 09:43 | PCM.PYCHDC ---
Mental Status Examination - Mental Status Examination Orientation: Person, Place, Situation, Time Memory: Intact Mood: Anxious Affect: Broad Speech: Appropriate Attention: WNL Concentration: WNL Association: WNL Fund of Knowledge: WNL Formal Thought Process: No Impairment Suicidal Ideation: No Current Homicidal Ideation?: No Discharge Summary - Discharge Note Reason for Hospitalization: Depression, Alcohol and Opiate Detox Consultations:: List each consultation separately and include: 1. Reason for request. 2. Findings. 3. Follow-up Summary of Hospital Course include:: 1. Description of specific treatment plan utilized for patients during their course of treatmen. 2. Summarize the time- course for resolution of acute symptoms and/or regressed behaviors. 3. Describe issues identified and worked on during hospitalization. 4. Describe medication utilized. 5. Describe medical problems identified and treated. 6. Reassessment of suicide risk Summary of Hospital Course: On Admission: This is a 52-year-old male, single, homeless, unemployed. He stays with friends at times, but recently he was discharged from us and was staying with his mother. He claims he missed the [facility] outpatient appointment where he would get suboxone, "with two hours." They told him to call back to reschedule but he just relapsed. Then he OD'ed in his mother's apartment and he can no longer return there. She is very scared and concerned, and besides, it's a [facility] facility and he was not supposed to be there. He had more depression and SI with a plan to OD on drugs. Currently, however, he is more optimistic, seeking help, future-oriented, and denies SI/SP. However, he still has anhedonia, low self-esteem and is withdrawing. He states he has no place to go but he will try to get into a rehab. He uses 10 bags IV, last use was yesterday. He denies using other drugs but he drinks about 10 cans of beer every day, but denies any withdrawal symptoms. He smokes MJ and uses Xanax "off an on" again. No seizures. He was released from [facility] in Jan 2017 and stayed with his mother until he relapsed "quickly." Psychiatric history: He was admitted more than 5 times. Alleged suicide attempt last year. He was on Seroquel, Remeron and Neurontin in the past. Family psych history: None known Medical history: Hepatitis C. Hospital course: The pt was admitted and started on treatment with psychotherapy, support, psychoeducation and medications. AL and CBT used. The pt attended groups and activities, as well as milieu therapy. All the risks and benefits of medications are discussed and the patient understood and agreed. The pt improved with the treatments provided. After care discussed with the patient. He will go to [place] and attend a program there that he will arrange. - Final Diagnosis (DSM 5) Condition upon Discharge: IMPROVED DSM 5: Primary: Major depressive disorder-recurrent, severe not psychotic Opioid use disorder- severe Opioid withdrawal, mild Alcohol use d/o Sedative, hypnotic use d/o - mild Cannabis use d/o Personality d/o - unspecified Disposition: HOME/ ROUTINE Follow-up Treatment Plan: Continue below medications after discharge. Follow after care plan as discussed. Use relapse prevention skills Return to ER or call 911 if suicidal, homicidal or symptoms relapse. Stay away from stress, alcohol and drugs. See primary doctor regularly and get labs. Prescriptions/Medication Reconciliation: Escitalopram [Lexapro] 20 mg PO DAILY #30 tab QUEtiapine [SEROquel] 200 mg PO HS #30 tab - Smoking Cessation Smoking Cessation Medication prescribed: No
== END 2017-08-23 10:00 | disposition home or self-care (01) | DRG 430 ==
LOC: C.ER 16:50 → C.9E 19:45 → C.5E 19:45
PROC: GZ3ZZZZ Medication Management (ICD-10-PCS; principal; 2017-08-17)
PROC: HZ2ZZZZ Detoxification Services for Substance Abuse Treatment (ICD-10-PCS; 2017-08-17)
PROC: GZHZZZZ Group Psychotherapy (ICD-10-PCS; 2017-08-17)
PROC: GZ56ZZZ Individual Psychotherapy, Supportive (ICD-10-PCS; 2017-08-17)
PROC: HZ59ZZZ Individual Psychotherapy for Substance Abuse Treatment, Supportive (ICD-10-PCS; 2017-08-17)
PROC: HZ46ZZZ Group Counseling for Substance Abuse Treatment, Psychoeducation (ICD-10-PCS; 2017-08-17)
DX: F33.2 Major depressive disorder, recurrent severe without psychotic features (principal); F11.23 Opioid dependence with withdrawal; F13.10 Sedative, hypnotic or anxiolytic abuse, uncomplicated; F12.90 Cannabis use, unspecified, uncomplicated; F31.9 Bipolar disorder, unspecified; R45.851 Suicidal ideations; G47.00 Insomnia, unspecified; Z59.0 Homelessness

== ENCOUNTER 2017-10-02 13:38 | Inpatient (IN) | payer MEDICAID, OTHER ==
[2017-10-02 13:38] VITALS: BMI 29.7
[2017-10-02 14:46] LABS: BASO % 0.3 % (0.0-2.0); EOS % 0.1 % (0.0-4.0); HEMOGLOBIN 15.3 g/dL (12.0-18.0); LYMPH # 1.1 K/uL (1.0-4.3); LYMPH % 10.6 % (20.0-40.0); MEAN CORPUSCULAR HEMOGLOBIN 31.2 pg (27.0-31.0); MEAN PLATELET VOLUME 8.4 fL (7.2-11.7); MONO # 0.5 K/uL (0.0-0.8); MONO % 4.6 % (0.0-10.0); NEUT # 8.7 K/uL (1.8-7.0); NEUT % 84.4 % (50.0-75.0); RBC 4.9 Mil/uL (4.40-5.90); RED CELL DISTRIBUTION WIDTH 13.1 % (11.5-14.5); WHITE BLOOD COUNT 10.4 K/uL (4.8-10.8)
[2017-10-02 14:55] LABS: URINE BACTERIA MANY (<OCC); URINE BILIRUBIN 1+ (NEGATIVE); URINE BLOOD NEGATIVE (NEGATIVE); URINE CLARITY Hazy (Clear); URINE COLOR Amber (YELLOW); URINE GLUCOSE (UA) NORMAL (Normal); URINE LEUKOCYTE ESTERASE NEG Leu/uL (Negative); URINE PROTEIN 2+ mg/dL (NEGATIVE)
[2017-10-02 14:58] LABS: ALBUMIN 4.2 g/dL (3.5-5.0); ALT/SGPT 55 U/L (21-72); AST/SGOT 39 U/L (17-59); BLOOD UREA NITROGEN 12 mg/dL (9-20); CALCIUM 9.7 mg/dl (8.6-10.4); GFR AFRICAN-AMERICAN > 60; GFR NON-AFRICAN AMERICAN > 60
[2017-10-02 15:15] LABS: BARBITURATES, UR NEGATIVE (NEGATIVE); PHENCYCLIDINE, UR NEGATIVE (NEGATIVE)
[2017-10-02 15:16] LABS: BENZODIAZEPINES, UR POSITIVE (NEGATIVE); OPIATES, UR POSITIVE (NEGATIVE)
--- NOTE | 2017-10-02 16:53 | C.PDOC ---
History Of Present Illness 52 yo male c/o depression worsening the last week. Pt notes he use to take psychiatric medication but hs not taken it in over a week. Admits to herion use. Notes he currently feels anxious. Denies any medical problems. (+) SI (-) HI. Time Seen by Provider: 10/02/17 13:50 Chief Complaint (Nursing): Psychiatric Evaluation History Per: Patient History/Exam Limitations: no limitations Onset/Duration Of Symptoms: Days Current Symptoms Are (Timing): Still Present Modifying Factor(s): Narcotics Associated Symptoms: Anxiety, Depression Past Medical History Vital Signs: Last Vital Signs Temp 97.7 F 10/02/17 13:47 Pulse 91 H 10/02/17 13:47 Resp 16 10/02/17 13:47 BP 117/79 10/02/17 13:47 Pulse Ox 98 10/02/17 13:47 - Medical History PMH: Anxiety, Bipolar Disorder, Depression Denies: Diabetes, Hepatitis, HIV, HTN, Seizures, Sexually Transmitted Disease - [facility] Procedures DETOXIFICATION SERVICES FOR SUBSTANCE ABUSE TREATMENT (08/17/17) GROUP IN SERVICE EDUCATOR FOR SUBSTANCE ABUSE TREATMENT, PSYCHOEDUCATION (08/17/17) GROUP PSYCHOTHERAPY (08/17/17) INDIV IN SERVICE EDUCATOR FOR SUBSTANCE ABUSE TREATMENT, CONTINUING CARE (03/31/15) INDIV PSYCHOTHERAPY FOR SUBSTANCE ABUSE TREATMENT, SUPPORT (08/17/17) INDIVIDUAL PSYCHOTHERAPY, SUPPORTIVE (08/17/17) INJECT/INFUSE NEC (03/03/13) MEDICATION MANAGEMENT (08/17/17) Family History: States: Unknown Family Hx - Social History Hx Tobacco Use: Yes Hx Alcohol Use: Yes Hx Substance Use: Yes - Immunization History Hx Tetanus Toxoid Vaccination: No Hx Influenza Vaccination: Yes Hx Pneumococcal Vaccination: No Review Of Systems Except As Marked, All Systems Reviewed And Found Negative. Psych: Positive for: Anxiety, Depression Physical Exam - Physical Exam Appears: Well, Non-toxic, No Acute Distress Skin: Normal Color, Warm, Dry Head: Atraumatic, Normacephalic Eye(s): bilateral: Normal Inspection, EOMI Nose: Normal Oral Mucosa: Moist Neck: Normal, Normal ROM, Supple Chest: Symmetrical Cardiovascular: Rhythm Regular Respiratory: Normal Breath Sounds Gastrointestinal/Abdominal: Normal Exam, Soft, No Tenderness Back: Normal Inspection Extremity: Normal ROM ED Course And Treatment - Laboratory Results Result Diagrams: 10/02/17 14:43 10/02/17 14:43 O2 Sat by Pulse Oximetry: 98 Progress Note: laceworker evaluated pt at bedside and discussed case with amy Serna admission. Disposition - Disposition Disposition: HOME/ ROUTINE Disposition Time: 16:55 Condition: STABLE - Clinical Impression Clinical Impression: Depression, Opioid abuse
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
--- NOTE | 2017-10-03 11:38 | PCM.PSYCH ---
Initial Psychiatric Evaluation - Initial Psychiatric Evaluation Type of Admission: Voluntary Legal Status: Capacity Chief Complaint (in patient's own words): "Depressed" History of Present Illness and Precipitating Events: The patient is seen, chart reviewed, case discussed. He is well known to the fiction and nonfiction writer prose from patient's previous admissions. This is a 52-year-old male, single, homeless, unemployed. He stays with friends or mother at times. He claims he missed his nephew who was supposed to take him to a program in [facility] and so he went back to his neighborhood and relapsed. Currently, he is more motivated for "prison rehab," and he denies feeling suicidal. He feeels depressed and anxious b/c of his "life." He uses 10 bags IV, last use was yesterday. He denies using other drugs but he drinks about 10 cans of beer every day, but denies any withdrawal symptoms. He smokes MJ and uses Xanax "off an on" again. No seizures. He was [facility] from [facility] care in [facility] and stayed with his mother until he relapsed "quickly." Psychiatric history: He was admitted more than 5 times. Alleged suicide attempt last year. He was on Seroquel, Remeron and Neurontin in the past. Family psych history: None known Medical history: Hepatitis C. Current Medications: Active Medications Generic Name Dose Route Start Last Admin Trade Name Freq PRN Reason Stop Dose Admin Clonidine HCl 0.1 mg 10/02/17 17:32 Catapres PO Q8 PRN COWS Score More or Equal to 5 Escitalopram Oxalate 20 mg 10/02/17 17:45 10/03/17 09:04 Lexapro PO 20 mg DAILY PAULINA Administration Ibuprofen 600 mg 10/02/17 17:34 Motrin Tab PO TID PRN Pain, moderate (4-7) Loperamide HCl 2 mg 10/02/17 17:32 Imodium PO Q8 PRN Diarrhea Ondansetron HCl 4 mg 10/02/17 17:32 Zofran Tab PO Q8 PRN Nausea/Vomiting Pneumococcal Polyvalent Vaccine 0.5 ml 10/05/17 10:00 Pneumovax 23 Vaccine IM 10/05/17 10:01 .ONCE ONE Quetiapine Fumarate 200 mg 10/02/17 22:00 10/02/17 21:01 Seroquel PO 200 mg HS PAULINA Administration Trazodone HCl 50 mg 10/02/17 20:14 10/02/17 21:02 Desyrel PO 50 mg HS PRN Administration Insomnia Past Psychiatric History - Past Psychiatric History Previous Treatment History: Inpatient Pertinent Medical Hx (Current Medical&Sleep Prob, Allergies): Allergies Allergy/AdvReac Type Severity Reaction Status Date / Time FISH AdvReac Mild nausea/vomi Verified 10/02/17 13:49 t/rash Gabapentin [Neurontin] 400 mg PO TID #90 cap 08/09/17 QUEtiapine [SEROquel] 200 mg PO HS #30 tab 08/09/17 Escitalopram [Lexapro] 20 mg PO DAILY #30 tab 08/23/17 Review of Systems - Psychiatric Psychiatric: Abnormal Sleep Pattern, Anhedonia, Anxiety, Change in Appetite, Depression, Difficulty Concentrating. absent: Hallucinations, Homicidal Ideation, Suicidal Ideation Mental Status Examination - Personal Presentation Personal Presentation: Looks older than stated age - Affect Affect: Constricted - Motor Activity Motor Activity: Calm - Reliability in Providing Information Reliability in Providing Information: Good - Speech Speech: Organized - Mood Mood: Depressed, Anxious - Formal Thought Process Formal Thought Process: No Impairment - Cognitive Functions Orientation: Person, Place, Situation, Time Sensorium: Alert Attention/Concentration: Attentive Estimate of Intelligence: Average Judgement: Intact, as evidence by: Insight regarding need for hospitalization Memory: Recent intact, as evidence by: Ability to recall events of the day, Remote intact, as evidenced by: Abilit to recall sig. life events - Risk Risk: Withdrawal, Diminished functioning - Strength & Assets Inventory Strength & Assets Inventory: Cooperative DSM 5 DX - DSM 5 DSM 5 Diagnosis: Primary: Major depressive disorder-recurrent, severe not psychotic Opioid use disorder- severe Opioid withdrawal, mild Alcohol use d/o Sedative, hypnotic use d/o - mild Cannabis use d/o Personality d/o - unspecified - Recommended/Plan of Treatment Treatment Recommendations and Plan of Treatment: Nixon. depression: -lexapro 10 mg daily -Continue Seroquel 100 mg for irritability depression and insomnia -Psychoeducation and support -Use CBT -Attend groups and activities Opioid use disorder is-withdrawal: -Methadone detox by 20 mg and then go down 5 mg every day -When necessary medications -Attend groups and activities -Use [place] for abstinence and long-term rehabilitation -Consider maintenance medications Alcohol/Benzo use disorder: -Monitor symptoms -Support psychoeducation and use [place] -Attend groups and activities 31 minutes Projected ELOS: 4-5 days Prognosis: good with good after care - Smoking Cessation Smoking Cessation Initiated: Yes
[2017-10-04 06:50] VITALS: O2SAT 97
--- NOTE | 2017-10-04 13:59 | PCM.PYCHPN ---
Psychiatric Progress Note - Psychiatric Progress Note Patient seen today, length of contact: 15 min Patient Chief Complaint: "I am very anxious" Problems Identified/Issues Discussed: Patient is seen and evaluated, chart reviewed, and discussed with nurse. Patient is reporting mild withdrawal symptoms including nausea and mild joint pain. Patient continues to report feelings of depression but denies suicidal or homicidal ideation. Patient denies auditory, tactile, or visual hallucinations. Patient also reports anxiety. Patient is interested in going to [facility] in [place]. He is working with counselors for his after-care plans. Patient continues to go to group activity. Patient is taking medications and denies any side effects. Supportive therapy and psychoeducation were given. After care discussed. Medication Change: Yes (Neurontin increase, add inderal) Medical Record Reviewed: Yes Mental Status Examination - Cognitive Function Orientation: Person, Place, Situation, Time Memory: Intact Attention: WNL Concentration: WNL Association: WN Fund of Knowledge: WN - Mood Mood: Depressed, Anxious - Affect Affect: Constricted - Speech Speech: Appropriate - Formal Thought Process Formal Thought Process: No Impairment - Suicidal Ideation Suicidal Ideation: No - Homicidal Ideation Homicidal Ideation: No Goal/Treatment Plan - Goal/Treatment Plan Need for Continued Stay: Discharge may exacerbated symptoms, Severe functional impairment Progress Toward Problem(s) and Goals/Treatment Plan: Nixon. depression: -lexapro 10 mg daily -Continue Seroquel 100 mg for irritability depression and insomnia -Psychoeducation and support -Use CBT -Attend groups and activities Opioid use disorder is-withdrawal: -Methadone detox by 20 mg and then go down 5 mg every day -When necessary medications -Attend groups and activities -Use [place] for abstinence and long-term rehabilitation -Consider maintenance medications Alcohol/Benzo use disorder: -Monitor symptoms -Support psychoeducation and use [place] -Attend groups and activities Anxiety: - Add inderal and atarx - Increase gabapentin to 400 mg Estimated Date of D/C: 10/07/17
[2017-10-05] MEDS ORDERED: Pneumococcal 23-Valent Vaccine IM ONE (10:00)
--- NOTE | 2017-10-05 11:33 | PCM.PYCHPN ---
Psychiatric Progress Note - Psychiatric Progress Note Patient seen today, length of contact: 16 min Patient Chief Complaint: "I am still anxious, I want to stay until Tuesday" Problems Identified/Issues Discussed: The pt is seen, chart reviewed, case discussed with staff. Support and psychoeducation given, CBT and IN used briefly No new symptoms reported, improving slowly and needs more time No SEs from medications, risks discussed. After care discussed - will go to [facility] (still pending) Medication Change: No Medical Record Reviewed: Yes Mental Status Examination - Cognitive Function Orientation: Person, Place, Situation, Time Memory: Intact Attention: WNL Concentration: WNL Association: [facility] Fund of Knowledge: WN - Mood Mood: Depressed, Anxious - Affect Affect: Constricted - Speech Speech: Appropriate - Formal Thought Process Formal Thought Process: No Impairment - Suicidal Ideation Suicidal Ideation: No - Homicidal Ideation Homicidal Ideation: No Goal/Treatment Plan - Goal/Treatment Plan Need for Continued Stay: Discharge may exacerbated symptoms, Severe functional impairment Progress Toward Problem(s) and Goals/Treatment Plan: Nixon. depression: -lexapro 20 mg daily -Continue Seroquel 200 mg for irritability depression and insomnia -Psychoeducation and support -Use CBT -Attend groups and activities Opioid use disorder is-withdrawal: -Methadone detox by 20 mg and then go down 5 mg every day -When necessary medications -Attend groups and activities -Use [place] for abstinence and long-term rehabilitation -Consider maintenance medications Alcohol/Benzo use disorder: -Monitor symptoms -Support psychoeducation and use [place] -Attend groups and activities Anxiety: - Add inderal and atarx - Increase gabapentin to 400 mg Estimated Date of D/C: 10/07/17
--- NOTE | 2017-10-06 12:17 | PCM.PYCHPN ---
Psychiatric Progress Note - Psychiatric Progress Note Patient seen today, length of contact: 15 min Patient Chief Complaint: "I am not well yet" Problems Identified/Issues Discussed: The pt is seen, chart reviewed, case discussed with staff. He is accepted by [facility] but likely for Tuesday He may and likely will relapse if he leaves like this and it's best if he goes door to door which he has not done before Support and psychoed given Not suicidal but depressed Medication Change: No Medical Record Reviewed: Yes Mental Status Examination - Cognitive Function Orientation: Person, Place, Situation, Time Memory: Intact Attention: WNL Concentration: WNL Association: WN Fund of Knowledge: WN - Mood Mood: Depressed, Anxious - Affect Affect: Constricted - Speech Speech: Appropriate - Formal Thought Process Formal Thought Process: No Impairment - Suicidal Ideation Suicidal Ideation: No - Homicidal Ideation Homicidal Ideation: No Goal/Treatment Plan - Goal/Treatment Plan Need for Continued Stay: Discharge may exacerbated symptoms, Severe functional impairment Progress Toward Problem(s) and Goals/Treatment Plan: Nixon. depression: -lexapro 20 mg daily -Continue Seroquel 200 mg for irritability depression and insomnia -Psychoeducation and support -Use CBT -Attend groups and activities Opioid use disorder is-withdrawal: -Methadone detox by 20 mg and then go down 5 mg every day -When necessary medications -Attend groups and activities -Use [place] for abstinence and long-term rehabilitation -Consider maintenance medications Alcohol/Benzo use disorder: -Monitor symptoms -Support psychoeducation and use [place] -Attend groups and activities Anxiety: - Add inderal and atarx - Increase gabapentin to 400 mg Estimated Date of D/C: 10/10/17 If changed, why: not ready
--- NOTE | 2017-10-07 16:47 | RAD ---
PROCEDURE: Radiographs of the Chest and Left Ribs. HISTORY: He fell outside and has pain COMPARISON: 08/02/2017. TECHNIQUE: Frontal radiograph of the chest and multiple oblique radiographs of the left ribs were obtained. FINDINGS: LEFT RIBS: No fracture or focal lesion visualized. LUNGS: Clear. PLEURA: No pneumothorax or pleural fluid. CARDIOVASCULAR: Normal sized heart. No pulmonary vascular congestion. OTHER FINDINGS: Left glenohumeral osteoarthritis. 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 IMPRESSION: No evidence of left rib fracture. No pulmonary infiltrate. No pneumothorax.
--- NOTE | 2017-10-09 08:12 | PCM.PYCHPN ---
Psychiatric Progress Note - Psychiatric Progress Note Patient seen today, length of contact: 15 min Patient Chief Complaint: "So so" Problems Identified/Issues Discussed: The pt is seen, chart reviewed, case discussed with staff. The pt is compliant with medications and reports no side-effects. Symptoms are improving but needs more time to stabilize. After care discussed, support and psychoeducation given. Medication Change: Yes Medical Record Reviewed: Yes Mental Status Examination - Cognitive Function Orientation: Person, Place, Situation, Time Memory: Intact Attention: WNL Concentration: WNL Association: WNL Fund of Knowledge: WNL - Mood Mood: Depressed, Anxious - Affect Affect: Constricted - Speech Speech: Appropriate - Formal Thought Process Formal Thought Process: No Impairment - Suicidal Ideation Suicidal Ideation: No - Homicidal Ideation Homicidal Ideation: No Goal/Treatment Plan - Goal/Treatment Plan Need for Continued Stay: Discharge may exacerbated symptoms, Severe functional impairment Progress Toward Problem(s) and Goals/Treatment Plan: Nixon. depression: -lexapro 20 mg daily -Continue Seroquel 200 mg for irritability depression and insomnia -Psychoeducation and support -Use CBT -Attend groups and activities Opioid use disorder is-withdrawal: -Methadone detox by 20 mg and then go down 5 mg every day -When necessary medications -Attend groups and activities -Use [place] for abstinence and long-term rehabilitation -Consider maintenance medications Alcohol/Benzo use disorder: -Monitor symptoms -Support psychoeducation and use [place] -Attend groups and activities Anxiety: - Add inderal and atarx - Increase gabapentin to 400 mg Estimated Date of D/C: 10/10/17
--- NOTE | 2017-10-09 08:12 | PCM.PYCHPN ---
Psychiatric Progress Note - Psychiatric Progress Note Patient seen today, length of contact: 16 min Patient Chief Complaint: "I still have anxiety" Problems Identified/Issues Discussed: The pt is seen, chart reviewed, case discussed with staff. Support and psychoeducation given, CBT and [place] used briefly No new symptoms reported, improving slowly and needs more time No SEs from medications, risks discussed. After care discussed - [facility] in [place] XR done for severe rib pain Anxiety mgt discussed Medication Change: No Medical Record Reviewed: Yes Mental Status Examination - Cognitive Function Orientation: Person, Place, Situation, Time Memory: Intact Attention: WNL Concentration: WNL Association: WNL Fund of Knowledge: WN - Mood Mood: Depressed, Anxious - Affect Affect: Constricted - Speech Speech: Appropriate - Formal Thought Process Formal Thought Process: No Impairment - Suicidal Ideation Suicidal Ideation: No - Homicidal Ideation Homicidal Ideation: No Goal/Treatment Plan - Goal/Treatment Plan Need for Continued Stay: Discharge may exacerbated symptoms, Severe functional impairment Progress Toward Problem(s) and Goals/Treatment Plan: Nixon. depression: -lexapro 20 mg daily -Continue Seroquel 200 mg for irritability depression and insomnia -Psychoeducation and support -Use CBT -Attend groups and activities Opioid use disorder is-withdrawal: -Methadone detox by 20 mg and then go down 5 mg every day -When necessary medications -Attend groups and activities -Use [place] for abstinence and long-term rehabilitation -Consider maintenance medications Alcohol/Benzo use disorder: -Monitor symptoms -Support psychoeducation and use [place] -Attend groups and activities Anxiety: - Add inderal and atarx - Increase gabapentin to 400 mg Estimated Date of D/C: 10/10/17
--- NOTE | 2017-10-09 11:48 | PCM.PYCHPN ---
Psychiatric Progress Note - Psychiatric Progress Note Patient seen today, length of contact: 16 min Patient Chief Complaint: "I am a little better" Problems Identified/Issues Discussed: The pt is seen, chart reviewed, case discussed with staff. He is accepted by [facility] but likely for Tuesday Support and psychoeducation given, CBT and SD used briefly No new symptoms reported, improving slowly and needs more time No SEs from medications, risks discussed. Medication Change: No Medical Record Reviewed: Yes Mental Status Examination - Cognitive Function Orientation: Person, Place, Situation, Time Memory: Intact Attention: WNL Concentration: WNL Association: WNL Fund of Knowledge: WN - Mood Mood: Depressed, Anxious - Affect Affect: Constricted - Speech Speech: Appropriate - Formal Thought Process Formal Thought Process: No Impairment - Suicidal Ideation Suicidal Ideation: No - Homicidal Ideation Homicidal Ideation: No Goal/Treatment Plan - Goal/Treatment Plan Need for Continued Stay: Discharge may exacerbated symptoms, Severe functional impairment Progress Toward Problem(s) and Goals/Treatment Plan: Nixon. depression: -lexapro 20 mg daily -Continue Seroquel 200 mg for irritability depression and insomnia -Psychoeducation and support -Use CBT -Attend groups and activities Opioid use disorder is-withdrawal: -Methadone detox by 20 mg and then go down 5 mg every day -When necessary medications -Attend groups and activities -Use SD for abstinence and long-term rehabilitation -Consider maintenance medications Alcohol/Benzo use disorder: -Monitor symptoms -Support psychoeducation and use SD -Attend groups and activities Anxiety: - Add inderal and atarx - Increase gabapentin to 400 mg Estimated Date of D/C: 10/10/17
[2017-10-10 06:48] VITALS: BP 109/67; PULSE 82; RESP 20; TEMP 98.3
--- NOTE | 2017-10-10 10:22 | PCM.PYCHDC ---
Mental Status Examination - Mental Status Examination Orientation: Person, Place, Situation, Time Memory: Intact Mood: Anxious Affect: Constricted Speech: Appropriate Attention: WNL Concentration: WNL Association: WNL Fund of Knowledge: WNL Formal Thought Process: No Impairment Suicidal Ideation: No Current Homicidal Ideation?: No Discharge Summary - Discharge Note Reason for Hospitalization: Feeling depressed and suicidal Consultations:: List each consultation separately and include: 1. Reason for request. 2. Findings. 3. Follow-up Summary of Hospital Course include:: 1. Description of specific treatment plan utilized for patients during their course of treatmen. 2. Summarize the time- course for resolution of acute symptoms and/or regressed behaviors. 3. Describe issues identified and worked on during hospitalization. 4. Describe medication utilized. 5. Describe medical problems identified and treated. 6. Reassessment of suicide risk Summary of Hospital Course: The patient is seen, chart reviewed, case discussed. On admission: He is well known to the continuity writer from patient's previous admissions. This is a 52-year-old male, single, homeless, unemployed. He stays with friends or mother at times. He claims he missed his nephew who was supposed to take him to a program in [facility] and so he went back to his neighborhood and relapsed. 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 He feeels depressed and anxious b/c of his "life." He uses 10 bags IV, last use was yesterday. He denies using other drugs but he drinks about 10 cans of beer every day, but denies any withdrawal symptoms. He smokes MJ and uses Xanax "off an on" again. No seizures. He was released from custodial in Jan 2017 and stayed with his mother until he relapsed "quickly." Psychiatric history: He was admitted more than 5 times. Alleged suicide attempt last year. He was on Seroquel, Remeron and Neurontin in the past. Family psych history: None known Medical history: Hepatitis C. Hospital course: The pt was admitted and started on treatment with psychotherapy, support, psychoeducation and medications. OH and CBT used. The pt attended groups and activities, as well as milieu therapy. Inderal given for anxiety XR done for rib pain - negative He was quiet and cooperative and looked more motivated to stay clean than before All the risks and benefits of medications are discussed and the patient understood and agreed. The pt improved with the treatments provided. After care discussed with the patient. He left for [facility] in [facility] - Final Diagnosis (DSM 5) Condition upon Discharge: IMPROVED DSM 5: Primary: Major depressive disorder-recurrent, severe not psychotic Opioid use disorder- severe Opioid withdrawal, mild Alcohol use d/o Sedative, hypnotic use d/o - mild Cannabis use d/o Personality d/o - unspecified Disposition: REHAB FACILITY/REHAB UNIT Follow-up Treatment Plan: Continue below medications after discharge. Follow after care plan as discussed. Use relapse prevention skills Return to ER or call 911 if suicidal, homicidal or symptoms relapse. Stay away from stress, alcohol and drugs. See primary doctor regularly and get labs. Prescriptions/Medication Reconciliation: Escitalopram [Lexapro] 20 mg PO DAILY #30 tab Propranolol [Inderal] 20 mg PO TID #90 tab QUEtiapine [SEROquel] 200 mg PO HS #30 tab traZODone [Desyrel] 100 mg PO HS PRN #30 tab PRN Reason: Insomnia - Smoking Cessation Smoking Cessation Medication prescribed: No - Antipsychotic Medications Pt discharged on 2 or more routine antipsychotic medications: No
== END 2017-10-10 10:48 | disposition home or self-care (01) | DRG 430 ==
LOC: C.ER 13:38 → C.9E 16:26 → C.5E 16:54
PROVIDERS: ADMIT Psychiatry & Neurology Psychiatry; ATTEND Psychiatry & Neurology Psychiatry
PROC: GZHZZZZ Group Psychotherapy (ICD-10-PCS; principal; 2017-10-02)
PROC: HZ2ZZZZ Detoxification Services for Substance Abuse Treatment (ICD-10-PCS; 2017-10-02)
PROC: GZ58ZZZ Individual Psychotherapy, Cognitive-Behavioral (ICD-10-PCS; 2017-10-02)
PROC: GZ56ZZZ Individual Psychotherapy, Supportive (ICD-10-PCS; 2017-10-02)
PROC: HZ52ZZZ Individual Psychotherapy for Substance Abuse Treatment, Cognitive-Behavioral (ICD-10-PCS; 2017-10-02)
PROC: HZ59ZZZ Individual Psychotherapy for Substance Abuse Treatment, Supportive (ICD-10-PCS; 2017-10-02)
PROC: HZ56ZZZ Individual Psychotherapy for Substance Abuse Treatment, Psychoeducation (ICD-10-PCS; 2017-10-02)
PROC: HZ42ZZZ Group Counseling for Substance Abuse Treatment, Cognitive-Behavioral (ICD-10-PCS; 2017-10-02)
PROC: HZ46ZZZ Group Counseling for Substance Abuse Treatment, Psychoeducation (ICD-10-PCS; 2017-10-02)
DX: F33.2 Major depressive disorder, recurrent severe without psychotic features (principal); F11.23 Opioid dependence with withdrawal; F13.10 Sedative, hypnotic or anxiolytic abuse, uncomplicated; F10.10 Alcohol abuse, uncomplicated; F12.90 Cannabis use, unspecified, uncomplicated; F41.9 Anxiety disorder, unspecified; G47.00 Insomnia, unspecified; Z59.0 Homelessness; R45.851 Suicidal ideations; Y90.0 Blood alcohol level of less than 20 mg/100 ml

== ENCOUNTER 2017-10-25 17:13 | Inpatient (IN) | payer MEDICAID, OTHER ==
[2017-10-25 17:14] VITALS: BMI 29.7
--- NOTE | 2017-10-25 18:17 | C.PDOC ---
History Of Present Illness 52 year old male patient presented to the ER with depression and suicide ideation. Patient denies homicidal ideation or any other complaints or injuries. Time Seen by Provider: 10/25/17 17:57 Chief Complaint (Nursing): Psychiatric Evaluation History Per: Patient History/Exam Limitations: no limitations Onset/Duration Of Symptoms: Hrs Current Symptoms Are (Timing): Still Present Modifying Factor(s): Alcohol Associated Symptoms: Depression, Suicidal Thoughts Past Medical History Reviewed: Historical Data, Nursing Documentation, Vital Signs Vital Signs: Last Vital Signs Temp 97.9 F 10/31/17 06:19 Pulse 81 10/31/17 16:02 Resp 19 10/31/17 08:55 BP 96/63 L 10/31/17 16:02 Pulse Ox 99 10/31/17 08:55 - Medical History PMH: Anxiety, Bipolar Disorder, Depression - [facility] Procedures DETOXIFICATION SERVICES FOR SUBSTANCE ABUSE TREATMENT (10/02/17) GROUP MANAGER MATERIAL FOR SUBSTANCE ABUSE TREATMENT, PSYCHOEDUCATION (10/02/17) GROUP MANAGER MATERIAL FOR SUBSTANCE ABUSE, COGNITIVE BEHAVIORAL (10/02/17) GROUP PSYCHOTHERAPY (10/02/17) INDIV MANAGER MATERIAL FOR SUBSTANCE ABUSE TREATMENT, CONTINUING CARE (03/31/15) INDIV PSYCHOTHERAPY FOR SUBSTANCE ABUSE TREATMENT, SUPPORT (10/02/17) INDIV PSYCHOTHERAPY FOR SUBSTANCE ABUSE, COGNITIV BEHAVIORAL (10/02/17) INDIV PSYCHOTHERAPY FOR SUBSTANCE ABUSE, PSYCHOEDUCATION (10/02/17) INDIVIDUAL PSYCHOTHERAPY, COGNITIVE-BEHAVIORAL (10/02/17) INDIVIDUAL PSYCHOTHERAPY, SUPPORTIVE (10/02/17) INJECT/INFUSE NEC (03/03/13) MEDICATION MANAGEMENT (08/17/17) Family History: States: Unknown Family Hx - Social History Hx Tobacco Use: Yes Hx Alcohol Use: Yes (occasionnally) Hx Substance Use: Yes (LAST USE) - Immunization History Hx Tetanus Toxoid Vaccination: No Hx Influenza Vaccination: Yes Hx Pneumococcal Vaccination: No Review Of Systems Except As Marked, All Systems Reviewed And Found Negative. Constitutional: Negative for: Fever, Chills Cardiovascular: Negative for: Chest Pain, Palpitations Respiratory: Negative for: Cough, Shortness of Breath Psych: Positive for: Depression, Suicidal ideation. Negative for: Other ( Homicidal ideation) Physical Exam - Physical Exam Appears: Non-toxic, No Acute Distress Skin: Normal Color, Warm, Dry Head: Atraumatic, Normacephalic Eye(s): bilateral: Normal Inspection Cardiovascular: Rhythm Regular Respiratory: Normal Breath Sounds, No Rales, No Rhonchi, No Wheezing Gastrointestinal/Abdominal: Soft, No Tenderness Back: No CVA Tenderness Extremity: Normal ROM (x4) Neurological/Psych: Oriented x3, Normal Speech Gait: Steady ED Course And Treatment - Laboratory Results Result Diagrams: 10/25/17 18:27 10/25/17 18:27 O2 Sat by Pulse Oximetry: 98 (RA) Pulse Ox Interpretation: Normal Medical Decision Making Medical Decision Making: Ordered: Drug screen, blood work, urinalysis patient medically cleared for crisis 2108 - Dr. Delatorre will admit to psych Disposition Discussed With DrMichaela: Josep Delatorre Doctor Will See Patient In The: Hospital Counseled Patient/Family Regarding: Studies Performed, Diagnosis - Disposition Disposition: HOSPITALIZED Disposition Time: 21:10 Condition: FAIR - Clinical Impression Clinical Impression: Depression - Scribe Statement Astudillo Do Provider Attestation: All medical record entries made by the Scribe were at my direction and personally dictated by me. I have reviewed the chart and agree that the record accurately reflects my personal performance of the history, physical exam, medical decision making, and the department course for this patient. I have also personally directed, reviewed, and agree with the discharge instructions and disposition.
[2017-10-25 18:34] LABS: BASO # 0.1 K/uL (0.0-0.2); BASO % 0.6 % (0.0-2.0); EOS # 0.2 K/uL (0.0-0.7); EOS % 2.1 % (0.0-4.0); HEMOGLOBIN 14.4 g/dL (12.0-18.0); LYMPH # 1.6 K/uL (1.0-4.3); LYMPH % 18.4 % (20.0-40.0); MEAN CELL VOLUME 90.4 fL (80.0-94.0); MEAN CORPUSCULAR HEMOGLOBIN 30.9 pg (27.0-31.0); MEAN CORPUSCULAR HGB CONC 34.1 g/dL (33.0-37.0); MEAN PLATELET VOLUME 9.7 fL (7.2-11.7); MONO # 0.9 K/uL (0.0-0.8); MONO % 10.6 % (0.0-10.0); NEUT # 5.8 K/uL (1.8-7.0); NEUT % 68.3 % (50.0-75.0); NRBC % 0.1 % (0.0-2.0); RBC 4.68 Mil/uL (4.40-5.90); RED CELL DISTRIBUTION WIDTH 13.4 % (11.5-14.5); WHITE BLOOD COUNT 8.4 K/uL (4.8-10.8)
[2017-10-25 19:22] LABS: ALB/GLOB RATIO 1.3 (1.0-2.1); ALBUMIN 4.6 g/dL (3.5-5.0); ALT/SGPT 47 U/L (21-72); AST/SGOT 63 U/L (17-59); BLOOD UREA NITROGEN 26 mg/dL (9-20); CALCIUM 9.3 mg/dl (8.6-10.4); GFR AFRICAN-AMERICAN > 60; GFR NON-AFRICAN AMERICAN > 60
[2017-10-25 20:46] LABS: URINE BILIRUBIN NEGATIVE (NEGATIVE); URINE BLOOD NEGATIVE (NEGATIVE); URINE CLARITY Hazy (Clear); URINE COLOR Amber (YELLOW); URINE GLUCOSE (UA) NORMAL (Normal); URINE HYALINE CAST >20 /lpf (0-2); URINE LEUKOCYTE ESTERASE NEG Leu/uL (Negative); URINE PROTEIN 1+ mg/dL (NEGATIVE)
[2017-10-25 20:48] LABS: BARBITURATES, UR NEGATIVE (NEGATIVE); PHENCYCLIDINE, UR NEGATIVE (NEGATIVE)
[2017-10-25 20:50] LABS: BENZODIAZEPINES, UR POSITIVE (NEGATIVE); OPIATES, UR POSITIVE (NEGATIVE)
--- NOTE | 2017-10-25 21:49 | PCM.BM ---
<Macey Miranda - Last Filed: 10/25/17 21:47> Treatment Plan Problems - Problems identified on initial assessmt depression Date Initiated: 10/25/17 Time Initiated: 21:53 Assessment reference: NA Status: Active substance abuse Date Initiated: 10/25/17 Time Initiated: 21:53 Assessment reference: NA Treatment assets and liabiliti Patient Assests: adapts well, cooperative, educated, motivated, ADL independent , physically healthy, negotiates basic needs, cognitively intact, good interpersonal skills Patient Liabilities: financial problems, substance abuse - Milieu Protocol Maintain good personal hygiene: daily Encourage regular showers, daily Remind patient to perform daily oral care, daily Assist patient to perform ADL's Conduct patient checks and document Observation sheet: Q15 minutes Maintain personal safety: every shift Educate patient to report safety concerns to staff, every shift Monitor environment for contraband/sharps Medication safety: Monitor for expected outcome, potential side effects: every shift, Assess barriers to learning: every shift, Assess readiness for medication education: every shift <Jarrod Nelson - Last Filed: 10/28/17 11:25> - Diagnosis (1) Depression Status: Acute Interventions: 10/28/17 11:26 * Assess/adjust medications daily and /or as needed * See patient on an individual basis 7x/week to assess symptoms of depression * Monitor for side effects & effectiveness of medications * (2) Drug abuse Status: Acute Interventions: 10/28/17 11:26 * Assess 7x/week regarding severity of withdrawal * Educate regarding risks, benefits, side effects and alternatives of medications * Use Motivational Interviewing for abstinence * Use CBT for relapse prevention * Medication management for withdrawal symptoms * Encourage medication assisted treatment * <Dayana Peraza - Last Filed: 10/28/17 14:10> Family Contact Family involvement: Patient does not wish Family/SO involvement Family contact: Patient declines to allow family contact at present - Goals for Treatment Patient goals for treatment: "I want to go to [facility] rehab in [place], [place]." Discharge/Continuing Care - Education Needs Education Needs: Patient Medication, Patient Diagnosis/Disease Process, Patient Coping Skills, Patient Placement options, Patient Community resources - Discharge Discharge Criteria: Free of Suicidal thoughts, Normal sleep pattern, Ability to care for self, No longer exhibiting s/s of withdrawal, Reduction of target symptoms Discharge to:: Substance Abuse Rehab - Treatment Team Participation Discussed with Family/SO: No Was Patient/Family/SO present at Treatment Team Meeting: Yes
[2017-10-25] MEDS ORDERED: Aluminum Hydroxide/Magnesium Hydroxide Susp (30 mL) PO PRN (22:33)
--- NOTE | 2017-10-26 18:38 | PCM.PSYCH ---
Initial Psychiatric Evaluation - Initial Psychiatric Evaluation Type of Admission: Voluntary Legal Status: Capacity Chief Complaint (in patient's own words): "I was using heroin" History of Present Illness and Precipitating Events: This is a 52-year-old male, single, homeless, unemployed. He stays with friends or mother at times. He stated that he is out of medication and he had relapsed. He stated that he is IV 10-12 bags of heroin daily. Last use was yesterday before coming to the hospital. Currently, he is more motivated for "alf rehab." He stated that he is feeling depressed with anhedonia, difficulty in concentration, insomnia, low appetite, with SI, but no intent or plan. He denied HI, intent or plan. He reproted that he has AH and paranoid delusions. He uses 10 bags IV, last use was yesterday. He denies using other drugs but he drinks about 10 cans of beer every day, but denies any withdrawal symptoms. He smokes MJ daily for the last 2 weeks. He uses Xanax "off an on" again last use was 5 days ago. No seizures. He was released from longterm in Jan 2017 and stayed with his mother until he relapsed "quickly." Psychiatric history: He was admitted more than 5 times. Alleged suicide attempt last year. He was on Seroquel, Remeron and Neurontin in the past. Family psych history: None known Medical history: Hepatitis C. Current Medications: Active Medications Generic Name Dose Route Start Last Admin Trade Name Freq PRN Reason Stop Dose Admin Al Hydrox/Mg Hydrox/Simethicone 30 ml 10/25/17 22:33 Maalox 30 Ml PO TID PRN Indigestion / Heartburn Clonidine HCl 0.1 mg 10/25/17 22:33 Catapres PO Q8 PRN COWS Score More or Equal to 5 Dicyclomine HCl 20 mg 10/25/17 22:36 Bentyl PO Q6 PRN Abdominal Discomfort Escitalopram Oxalate 20 mg 10/26/17 10:00 10/26/17 10:36 Lexapro PO 20 mg DAILY PAULINA Administration Gabapentin 300 mg 10/25/17 22:45 10/26/17 17:34 Neurontin PO 300 mg BID PAULINA Administration Ibuprofen 400 mg 10/25/17 22:35 Motrin Tab PO Q6 PRN Pain, moderate (4-7) Loperamide HCl 2 mg 10/25/17 22:33 Imodium PO Q8 PRN Diarrhea Ondansetron HCl 4 mg 10/25/17 22:33 Zofran Tab PO Q8 PRN Nausea/Vomiting Propranolol HCl 20 mg 10/26/17 10:00 10/26/17 17:34 Inderal PO 20 mg TID PAULINA Administration Quetiapine Fumarate 200 mg 10/25/17 22:45 10/25/17 22:45 Seroquel PO 200 mg HS PAULINA Administration Trazodone HCl 100 mg 10/25/17 22:45 10/25/17 22:45 Desyrel PO 100 mg HS PAULINA Administration Past Psychiatric History - Past Psychiatric History Previous Treatment History: Inpatient Prior Psychiatric Treatment: medication management, detox At [facility]: [facility] [place] History of Abuse: denied History of ETOH/Drug Use: please see HPI History of Family Illness: denied Pertinent Medical Hx (Current Medical&Sleep Prob, Allergies): Allergies Allergy/AdvReac Type Severity Reaction Status Date / Time FISH AdvReac Mild nausea/vomi Verified 10/25/17 17:25 t/rash Gabapentin [Neurontin] 400 mg PO TID #90 cap 08/09/17 QUEtiapine [SEROquel] 200 mg PO HS #30 tab 08/09/17 Escitalopram [Lexapro] 20 mg PO DAILY #30 tab 08/23/17 Escitalopram [Lexapro] 20 mg PO DAILY #30 tab 10/10/17 Propranolol [Inderal] 20 mg PO TID #90 tab 10/10/17 QUEtiapine [SEROquel] 200 mg PO HS #30 tab 10/10/17 traZODone [Desyrel] 100 mg PO HS PRN #30 tab 10/10/17 Review of Systems - Review of Systems All systems: reviewed and no additional remarkable complaints except (please see HPI) Mental Status Examination - Personal Presentation Personal Presentation: Looks stated age, Dressed appropriate to season Additional comments: Calm and cooperative - Affect Affect: Constricted - Motor Activity Motor Activity: Calm, Psychomotor Retardation - Speech Speech: Organized - Mood Mood: Depressed, Anxious - Formal Thought Process Formal Thought Process: Hallucinations, Delusions - Hallucinations/Delusions Hallucinations: Auditory - Obsessions/Compulsions Obsessions: None Compulsions: None - Cognitive Functions Orientation: Person, Place, Situation, Time Sensorium: Alert Attention/Concentration: Attentive Abstract Thinking: [place] Estimate of Intelligence: Average Judgement: Imparied, as evidence by: Poor judgement, Intact, as evidence by: Good judgement Memory: Recent intact, as evidence by: Ability to recall events of the day - Risk Risk: Suicidal, Withdrawal - Strength & Assets Inventory Strength & Assets Inventory: Intelligence, Cooperative - Limitations Limitations: Other (chronic mental illness) DSM 5 DX - DSM 5 DSM 5 Diagnosis: MDD recurrent severe Opioid use disorder, severe, dependence Opioid withdrawal - Recommended/Plan of Treatment Treatment Recommendations and Plan of Treatment: Methadoane taper Lexapro for depression Seroquel for mood stabilization and depression Attend groups and activities SC for abstinence and CBT for relapse prevention Support and psychoeducation Consider and encourage MAT Refer to after care 33 min Projected ELOS: 5-6 days Discharge Plan and Discharge Criteria: refer to after care - Smoking Cessation Smoking Cessation Initiated: Yes
--- NOTE | 2017-10-27 09:53 | PCM.PYCHPN ---
Psychiatric Progress Note - Psychiatric Progress Note Patient seen today, length of contact: 15 min Patient Chief Complaint: I am still withdrawing. Problems Identified/Issues Discussed: Patient seen and evaluated, chart reviewed and discussed with the nurse. He reports depressed mood, and difficulty in sleeping. He reports withdrawal symptoms including nausea, cramps and joint pains. He is looking forward to going to rehab after discharge. Patient is compliant with medications and denies any side effects. Symptoms are improving but need more time to stabilize. Support and psychoeducation given. Medication Change: Yes (Methadone taper) Medical Record Reviewed: Yes Mental Status Examination - Cognitive Function Orientation: Person, Place, Situation, Time Memory: Intact Attention: WNL Concentration: Poor Association: WNL Fund of Knowledge: Poor - Mood Mood: Depressed, Anxious - Affect Affect: Constricted - Speech Speech: Soft - Formal Thought Process Formal Thought Process: Hallucinations - Suicidal Ideation Suicidal Ideation: No - Homicidal Ideation Homicidal Ideation: No Goal/Treatment Plan - Goal/Treatment Plan Need for Continued Stay: Remain at risks for inpatient hospitalization, Severe depression anxiety, Failed transitioning Progress Toward Problem(s) and Goals/Treatment Plan: MDD recurrent severe Opioid use disorder, severe, dependence Opioid withdrawal Methadoane taper Lexapro for depression Seroquel for mood stabilization and depression Attend groups and activities OH for abstinence and CBT for relapse prevention Support and psychoeducation Consider and encourage MAT Refer to after care - Smoking Cessation Smoking Cessation Initiated: No
--- NOTE | 2017-10-28 11:26 | PCM.PYCHPN ---
Psychiatric Progress Note - Psychiatric Progress Note Patient seen today, length of contact: 16 min Patient Chief Complaint: I ma feeling little better Problems Identified/Issues Discussed: Patient seen and evaluated, chart reviewed and discussed with the nurse. He reports some improvement in his depressed mood, sleep and appetite. He reports some improvement in the withdrawal symptoms. He is looking forward to going to rehab after discharge. Patient is compliant with medications and denies any side effects. Symptoms are improving but need more time to stabilize. Support and psychoeducation given. Medication Change: Yes (methadone taper) Medical Record Reviewed: Yes Mental Status Examination - Cognitive Function Orientation: Person, Place, Situation, Time Memory: Intact Attention: WNL Concentration: Poor Association: WNL Fund of Knowledge: Poor - Mood Mood: Depressed, Anxious - Affect Affect: Constricted - Speech Speech: Soft - Formal Thought Process Formal Thought Process: No Impairment - Suicidal Ideation Suicidal Ideation: No - Homicidal Ideation Homicidal Ideation: No Goal/Treatment Plan - Goal/Treatment Plan Need for Continued Stay: Severe depression anxiety, Severe functional impairment Progress Toward Problem(s) and Goals/Treatment Plan: MDD recurrent severe Opioid use disorder, severe, dependence Opioid withdrawal Methadoane taper Lexapro for depression Seroquel for mood stabilization and depression Attend groups and activities RI for abstinence and CBT for relapse prevention Support and psychoeducation Consider and encourage MAT Refer to after care - Smoking Cessation Smoking Cessation Initiated: No
--- NOTE | 2017-10-29 14:35 | PCM.PYCHPN ---
Psychiatric Progress Note - Psychiatric Progress Note Patient seen today, length of contact: 15 min Patient Chief Complaint: I still feeling depressed and also not sleeping well. Problems Identified/Issues Discussed: Patient seen, chart reviewed, case was discussed with the staff. Issues related to illness and treatment were discussed with the staff and the patient. Reported compliant with treatment with no adverse effects. Tolerating treatment very well. Patient reported not feeling much better. Still reported feeling depressed and decreased sleep. Patient was calm and cooperative. Risks and benefits of medications were discussed with the patient. After clear discussed with patient. At the time of evaluation, patient was awake alert oriented x3, no delusions, no auditory hallucination or visual hallucinations, no suicidal or homicidal ideations. Medical Problems: Hepatitis C Diagnostic Results: Reviewed DSM 5 Symptoms Update: Improving with treatment Medication Change: No Medical Record Reviewed: Yes Mental Status Examination - Cognitive Function Orientation: Person, Place, Situation, Time Memory: Intact Attention: WNL Concentration: WNL Association: WNL Fund of Knowledge: WN Decription of patient's judgement and insights: Fair - Mood Mood: Depressed - Affect Affect: Other (Appropriate) - Speech Speech: Soft - Formal Thought Process Formal Thought Process: No Impairment Psychotic Thoughts and Behaviors: None - Suicidal Ideation Suicidal Ideation: No - Homicidal Ideation Homicidal Ideation: No Goal/Treatment Plan - Goal/Treatment Plan Need for Continued Stay: Remain at risks for inpatient hospitalization, Discharge may exacerbated symptoms, Severe functional impairment Progress Toward Problem(s) and Goals/Treatment Plan: Patient education. Supportive therapy. Continue treatment as before. Patient will go to [facility] for follow-up care after discharge from the hospital. Estimated Date of D/C: 10/31/17 - Smoking Cessation Smoking Cessation Initiated: No
--- NOTE | 2017-10-30 17:38 | PCM.PYCHPN ---
Psychiatric Progress Note - Psychiatric Progress Note Patient seen today, length of contact: 15 min Patient Chief Complaint: I still feeling depressed and also not sleeping well. Problems Identified/Issues Discussed: Patient seen, chart reviewed, case was discussed with the staff. Issues related to illness and treatment were discussed with the staff and the patient. Reported compliant with treatment with no adverse effects. Tolerating treatment very well. Patient reported not feeling much better. Still reported feeling depressed and decreased sleep. Will increase the dose of trazodone to 150 mg at night. Patient agreed. Patient was calm and cooperative. Risks and benefits of medications were discussed with the patient. After clear discussed with patient. At the time of evaluation, patient was awake alert oriented x3, no delusions, no auditory hallucination or visual hallucinations, no suicidal or homicidal ideations. Medical Problems: Hepatitis C Diagnostic Results: Reviewed DSM 5 Symptoms Update: Improving with treatment Medication Change: No Medical Record Reviewed: Yes Mental Status Examination - Cognitive Function Orientation: Person, Place, Situation, Time Memory: Intact Attention: WNL Concentration: WNL Association: WN Fund of Knowledge: [facility] Decription of patient's judgement and insights: Fair - Mood Mood: Depressed - Affect Affect: Other (Appropriate) - Speech Speech: Soft - Formal Thought Process Formal Thought Process: No Impairment Psychotic Thoughts and Behaviors: None - Suicidal Ideation Suicidal Ideation: No - Homicidal Ideation Homicidal Ideation: No Goal/Treatment Plan - Goal/Treatment Plan Need for Continued Stay: Remain at risks for inpatient hospitalization, Discharge may exacerbated symptoms, Severe functional impairment Progress Toward Problem(s) and Goals/Treatment Plan: Patient education. Supportive therapy. Will increase the dose of trazodone to 150 mg. Continue rest of the treatment as before. Patient will go to [facility] for follow-up care after discharge from the hospital. Estimated Date of D/C: 10/31/17 - Smoking Cessation Smoking Cessation Initiated: No
[2017-10-31 08:55] VITALS: RESP 19
--- NOTE | 2017-10-31 11:42 | PCM.PYCHPN ---
Psychiatric Progress Note - Psychiatric Progress Note Patient seen today, length of contact: 15 min Patient Chief Complaint: "I don't feel well" Problems Identified/Issues Discussed: He is seen, case discussed, chart reviewed Known from a previous admission He claims he relapsed just b/c [facility] was too early to take him to [facility] and left. He is better now, applying for [facility] Still has depression and mild wdw sxs and anxiety IN used, support given Medication Change: Yes Medical Record Reviewed: Yes Mental Status Examination - Cognitive Function Orientation: Person, Place, Situation, Time Memory: Intact Attention: WNL Concentration: WNL Association: WNL Fund of Knowledge: WN - Mood Mood: Depressed - Affect Affect: Other (Appropriate) - Speech Speech: Soft - Formal Thought Process Formal Thought Process: No Impairment - Suicidal Ideation Suicidal Ideation: No - Homicidal Ideation Homicidal Ideation: No Goal/Treatment Plan - Goal/Treatment Plan Need for Continued Stay: Discharge may exacerbated symptoms, Severe functional impairment Progress Toward Problem(s) and Goals/Treatment Plan: Support and psychoed Meds adjusted Refer to [facility] Involver Groups and activities Estimated Date of D/C: 11/02/17 If changed, why: not ready
[2017-11-01 07:21] VITALS: O2SAT 98
--- NOTE | 2017-11-01 15:26 | PCM.PYCHPN ---
Psychiatric Progress Note - Psychiatric Progress Note Patient seen today, length of contact: 15 min Patient Chief Complaint: "Not well" Problems Identified/Issues Discussed: The pt is seen, chart reviewed, case discussed with staff. Support and psychoeducation given, CBT and MA used briefly No new symptoms reported, improving slowly and needs more time No SEs from medications, risks discussed. After care discussed, [facility] accepted him but not with current meds - he agreed to change/decrease. Medication Change: Yes Medical Record Reviewed: Yes Mental Status Examination - Cognitive Function Orientation: Person, Place, Situation, Time Memory: Intact Attention: WNL Concentration: WNL Association: WNL Fund of Knowledge: WN - Mood Mood: Depressed - Affect Affect: Other (Appropriate) - Speech Speech: Soft - Formal Thought Process Formal Thought Process: No Impairment - Suicidal Ideation Suicidal Ideation: No - Homicidal Ideation Homicidal Ideation: No Goal/Treatment Plan - Goal/Treatment Plan Need for Continued Stay: Discharge may exacerbated symptoms, Severe functional impairment Progress Toward Problem(s) and Goals/Treatment Plan: Support and psychoed Meds adjusted Refer to [facility] Groups and activities Estimated Date of D/C: 11/02/17
[2017-11-02 06:42] VITALS: BP 103/66; PULSE 67; TEMP 97.7
--- NOTE | 2017-11-02 08:56 | PCM.PYCHDC ---
Mental Status Examination - Mental Status Examination Orientation: Person, Place, Situation, Time Memory: Intact Mood: Anxious Affect: Constricted Speech: Appropriate Attention: WNL Concentration: WNL Association: WNL Fund of Knowledge: WNL Formal Thought Process: No Impairment Suicidal Ideation: No Current Homicidal Ideation?: No Discharge Summary - Discharge Note Reason for Hospitalization: Feeling depressed, suicidal, withdrawing from opioids again Consultations:: List each consultation separately and include: 1. Reason for request. 2. Findings. 3. Follow-up Summary of Hospital Course include:: 1. Description of specific treatment plan utilized for patients during their course of treatmen. 2. Summarize the time- course for resolution of acute symptoms and/or regressed behaviors. 3. Describe issues identified and worked on during hospitalization. 4. Describe medication utilized. 5. Describe medical problems identified and treated. 6. Reassessment of suicide risk Summary of Hospital Course: The pt was admitted and started on treatment with psychotherapy, support, psychoeducation and medications. LA and CBT used. The pt attended groups and activities, as well as milieu therapy. All the risks and benefits of medications are discussed and the patient understood and agreed. The pt improved with the treatments provided. He was again med seeking and on the last day he started to bring up excuses to explain why he may relapse ( risks discussed) After care discussed with the patient. He will go to [facility] in [place]. - Final Diagnosis (DSM 5) Condition upon Discharge: IMPROVED DSM 5: MDD recurrent severe Opioid use disorder, severe, dependence Opioid withdrawal Disposition: REHAB FACILITY/REHAB UNIT Follow-up Treatment Plan: Continue below medications after discharge. Follow after care plan as discussed. Use relapse prevention skills Return to ER or call 911 if suicidal, homicidal or symptoms relapse. Stay away from stress, alcohol and drugs. See primary doctor regularly and get labs. Prescriptions/Medication Reconciliation: busPIRone [Buspar] 10 mg PO BID #60 tab Escitalopram [Lexapro] 20 mg PO DAILY #30 tab QUEtiapine [Seroquel] 100 mg PO HS #30 tab
== END 2017-11-02 12:30 | DRG 430 ==
LOC: C.ER 17:13 → C.5E 21:09
PROC: GZ3ZZZZ Medication Management (ICD-10-PCS; principal; 2017-10-25)
PROC: HZ2ZZZZ Detoxification Services for Substance Abuse Treatment (ICD-10-PCS; 2017-10-25)
PROC: HZ59ZZZ Individual Psychotherapy for Substance Abuse Treatment, Supportive (ICD-10-PCS; 2017-10-25)
PROC: GZHZZZZ Group Psychotherapy (ICD-10-PCS; 2017-10-25)
PROC: HZ46ZZZ Group Counseling for Substance Abuse Treatment, Psychoeducation (ICD-10-PCS; 2017-10-25)
PROC: GZ56ZZZ Individual Psychotherapy, Supportive (ICD-10-PCS; 2017-10-25)
DX: F33.2 Major depressive disorder, recurrent severe without psychotic features (principal); F11.23 Opioid dependence with withdrawal; F12.90 Cannabis use, unspecified, uncomplicated; F22 Delusional disorders; F31.9 Bipolar disorder, unspecified; B19.20 Unspecified viral hepatitis C without hepatic coma; F41.9 Anxiety disorder, unspecified; G47.00 Insomnia, unspecified; R45.851 Suicidal ideations; Z59.0 Homelessness

== ENCOUNTER 2017-11-22 13:34 | Inpatient (IN) | payer MEDICAID, OTHER ==
[2017-11-22 13:34] VITALS: BMI 29.7
[2017-11-22] MEDS ORDERED: Sodium Chloride 0.9% 1,000 ML IV ONE (13:41)
[2017-11-22 14:01] LABS: BASO # 0.1 K/uL (0.0-0.2); BASO % 0.4 % (0.0-2.0); EOS # 0.4 K/uL (0.0-0.7); EOS % 2.7 % (0.0-4.0); HEMOGLOBIN 15.1 g/dL (12.0-18.0); LYMPH # 2.7 K/uL (1.0-4.3); LYMPH % 18.1 % (20.0-40.0); MEAN CORPUSCULAR HEMOGLOBIN 31.2 pg (27.0-31.0); MEAN CORPUSCULAR HGB CONC 33.8 g/dL (33.0-37.0); MEAN PLATELET VOLUME 9.7 fL (7.2-11.7); MONO # 0.8 K/uL (0.0-0.8); MONO % 5.4 % (0.0-10.0); NEUT # 10.8 K/uL (1.8-7.0); NEUT % 73.4 % (50.0-75.0); RBC 4.82 Mil/uL (4.40-5.90)
[2017-11-22] MEDS ORDERED: Sodium Chloride 0.9% 1,000 ML ONE (14:01)
[2017-11-22 14:02] LABS: MEAN CELL VOLUME 92.5 fL (80.0-94.0); WHITE BLOOD COUNT 14.7 K/uL (4.8-10.8)
--- NOTE | 2017-11-22 14:24 | RAD ---
Date of service: 11/22/2017 PROCEDURE: CHEST RADIOGRAPH, 1 VIEW HISTORY: possible aspiration COMPARISON: 10/07/2017 FINDINGS: LUNGS: Clear. PLEURA: No pneumothorax or pleural fluid seen. CARDIOVASCULAR: Normal. OSSEOUS STRUCTURES: No significant abnormalities. VISUALIZED UPPER ABDOMEN: Normal. OTHER FINDINGS: None. IMPRESSION: No active disease.
[2017-11-22 14:26] LABS: ALB/GLOB RATIO 1.4 (1.0-2.1); ALBUMIN 4.1 g/dL (3.5-5.0); ALT/SGPT 47 U/L (21-72); AST/SGOT 37 U/L (17-59); BLOOD UREA NITROGEN 14 mg/dL (9-20); CALCIUM 9.1 mg/dl (8.6-10.4); GFR AFRICAN-AMERICAN > 60; GFR NON-AFRICAN AMERICAN > 60
--- NOTE | 2017-11-22 14:30 | C.PDOC ---
History Of Present Illness Patient BIBA for evaluation of suspected heroin OD. Patient was found unconscious in his mother's building, with vomit around him, difficult to arouse. Patient givne 2mg Narcan (intranasal) in the field with response. He admits to using IV heroin earlier today. Currently c/o feeling tired and nonproductive cough. He denies chest pain, palpitations, headache. PMHx bipolar disorder, Hepatitis C (status unknown as per patient) Time Seen by Provider: 11/22/17 13:37 Chief Complaint (Nursing): Substance Abuse History Per: Patient, EMS History/Exam Limitations: clinical condition Onset/Duration Of Symptoms: Unknown Modifying Factor(s): Narcotics Severity: Moderate Involuntary Hold By: Emergency Physician Past Medical History Reviewed: Historical Data, Nursing Documentation, Vital Signs Vital Signs: Last Vital Signs Temp 97.5 F L 11/23/17 07:00 Pulse 79 11/23/17 07:00 Resp 20 11/23/17 07:00 BP 105/70 11/23/17 07:00 Pulse Ox 88 L 11/23/17 08:32 - Medical History PMH: Anxiety, Bipolar Disorder, Depression - [facility] Procedures DETOXIFICATION SERVICES FOR SUBSTANCE ABUSE TREATMENT (10/25/17) GROUP ORGANIZATIONAL EFFECTIVENESS DIRECTOR FOR SUBSTANCE ABUSE TREATMENT, PSYCHOEDUCATION (10/25/17) GROUP ORGANIZATIONAL EFFECTIVENESS DIRECTOR FOR SUBSTANCE ABUSE, COGNITIVE BEHAVIORAL (10/02/17) GROUP PSYCHOTHERAPY (10/25/17) INDIV ORGANIZATIONAL EFFECTIVENESS DIRECTOR FOR SUBSTANCE ABUSE TREATMENT, CONTINUING CARE (03/31/15) INDIV PSYCHOTHERAPY FOR SUBSTANCE ABUSE TREATMENT, SUPPORT (10/25/17) INDIV PSYCHOTHERAPY FOR SUBSTANCE ABUSE, COGNITIV BEHAVIORAL (10/02/17) INDIV PSYCHOTHERAPY FOR SUBSTANCE ABUSE, PSYCHOEDUCATION (10/02/17) INDIVIDUAL PSYCHOTHERAPY, COGNITIVE-BEHAVIORAL (10/02/17) INDIVIDUAL PSYCHOTHERAPY, SUPPORTIVE (10/25/17) INJECT/INFUSE NEC (03/03/13) MEDICATION MANAGEMENT (10/25/17) Family History: States: No Known Family Hx - Social History Hx Tobacco Use: Yes Hx Alcohol Use: Yes (occasionnally) Hx Substance Use: Yes (heroin) - Immunization History Hx Tetanus Toxoid Vaccination: No Hx Influenza Vaccination: No Hx Pneumococcal Vaccination: No Review Of Systems Constitutional: Negative for: Fever, Chills Cardiovascular: Negative for: Chest Pain, Palpitations Respiratory: Negative for: Cough, Shortness of Breath Gastrointestinal: Negative for: Nausea, Vomiting, Abdominal Pain, Diarrhea Genitourinary: Negative for: Dysuria, Hematuria Neurological: Positive for: Other (overdose ). Negative for: Headache, Dizziness Physical Exam - Physical Exam Appears: Non-toxic, Other (appears under influence of heroin, drowsy but awake) Skin: Warm, Dry, Other (left forehead approx 1.5 cm abrasion) Head: Normacephalic Eye(s): bilateral: Other (pinpoint pupils B/L ) Oral Mucosa: Moist Neck: Normal, Normal ROM, No Midline Cervical Tenderness, No Paracervical Tenderness, No Step Off Deformity, Supple Cardiovascular: Rhythm Regular Respiratory: No Accessory Muscle Use, No Rales, No Rhonchi, No Wheezing, Other ( coarse breath sounds B/L ) Gastrointestinal/Abdominal: Normal Exam, Bowel Sounds, Soft, No Tenderness Extremity: Normal ROM, No Pedal Edema, No Calf Tenderness Extremity: Bilateral: Atraumatic, Normal Color And Temperature, Normal ROM ED Course And Treatment - Laboratory Results Result Diagrams: 11/23/17 06:46 11/23/17 06:46 ECG: Interpreted By Me, Viewed By Me (NSR 73 bpm, normal axis, QTc 484ms, no acute ST/T wave changes) ECG Interpretation: Abnormal (prolonged QT) O2 Sat by Pulse Oximetry: 88 (RA) Pulse Ox Interpretation: Abnormal (hypoxic) - CT Scan/US CT HEAD Other Rad Studies (CT/US): Read By Radiologist, Radiology Report Reviewed CT/US Interpretation: Accession No. : [id number]. Patient Name / ID : LOREN SANCHEZ / [id number]. Exam Date : 11/22/2017 14:14:04 ( Approved ). Study Comment : Sex / Age : M / 52Y. Creator : Nabeel Holloway MD. Dictator : Nabeel Holloway MD. Machine Folder : [employer] Operator : Nabeel Holloway MD. Approver2 : Report Date : 11/22/2017 14:34:49. My Comment : . Date of service: 11/22/2017. PROCEDURE: CT HEAD WITHOUT CONTRAST. HISTORY: head injury, heroin OD. COMPARISON: None available. TECHNIQUE: Axial computed tomography images were obtained through the head/brain without intravenous contrast. Radiation dose: Total exam DLP = 881.6 mGy-cm. This CT exam was performed using one or more of the following dose reduction techniques: Automated exposure control, adjustment of the mA and/or kV according to patient size, and/or use of iterative reconstruction technique. FINDINGS: HEMORRHAGE: No intracranial hemorrhage. BRAIN: No mass effect or edema. No atrophy or chronic microvascular ischemic changes. Small old bilateral basal ganglia lacunar infarcts. VENTRICLES: Unremarkable. No hydrocephalus. CALVARIUM: No fracture. Small right frontal scalp contusion. PARANASAL SINUSES: Chronic ethmoid and sphenoid sinusitis. MASTOID AIR CELLS: Unremarkable as visualized. No inflammatory changes. OTHER FINDINGS: None. IMPRESSION: No intracranial hemorrhage. Chronic paranasal sinusitis. Small right frontal scalp contusion. CTA CHEST Other Rad Studies (CT/US): Read By Radiologist, Radiology Report Reviewed CT/US Interpretation: Accession No. : [id number]. Patient Name / ID : LOREN Rome / [id number]. Exam Date : 11/22/2017 16:17:20 ( Approved ). Study Comment : Sex / Age : M / 52Y. Creator : Rachna Leon. Dictator : Nabeel Holloway MD. Machine Folder : [employer]gun [employer]rinting Unit Operator : Nabeel Holloway MD. Approver2 : Report Date : 11/22/2017 16:24:25. My Comment : . Date of service: 11/22/2017. PROCEDURE: CT Chest with contrast (Pulmonary Angiogram) . HISTORY: SOB, HYPOXIA, R/O PE VS ASPIRATION PNA. COMPARISON: None available. TECHNIQUE: Axial computed tomography images were obtained of the chest in the pulmonary arterial phase of enhancement. Coronal and sagittal reformatted images were created and reviewed. Intravenous contrast dose: 100 mL Visipaque 320. Radiation dose: Total exam DLP = 499.24 mGy-cm. This CT exam was performed using one or more of the following dose reduction techniques : Automated exposure control, adjustment of the mA and/or kV according to patient size, and/or use of iterative reconstruction technique. FINDINGS: PULMONARY ARTERIES: Unremarkable. No pulmonary embolism. AORTA: No acute findings. No thoracic aortic aneurysm. LUNGS: There is diffuse heterogeneous ground-glass opacity throughout the right lung with nodular areas of consolidation. There is nonspecific opacity also seen in the dependent portion of the left lower lobe. There are patchy areas of ground-glass opacity to a much lesser extent, in the anterior segment of the left upper lobe. These are nonspecific findings. This is an atypical pattern for aspiration pneumonia. Consider infectious pneumonia, possibly from atypical organism, or noncardiogenic pulmonary edema. . PLEURAL SPACES: Unremarkable. No effusion or pneumothorax. HEART: Unremarkable. No cardiomegaly. No significant pericardial effusion. LYMPH NODES: There is mild right hilar lymphadenopathy, nonspecific. There is no left hilar lymphadenopathy. There is no mediastinal lymphadenopathy. BONES, CHEST WALL: Unremarkable. No fracture or destructive lesion. OTHER FINDINGS: Small hiatal hernia. Cholelithiasis without evidence of cholecystitis. IMPRESSION: No evidence of pulmonary embolism. Multifocal heterogeneous ground-glass opacity with nodular areas of consolidation, right lung greater than left. Atypical appearance for aspiration pneumonia. Consider atypical pneumonia (opportunistic infection ) or noncardiogenic pulmonary edema. Progress Note: Blood work, ABG, EKG, CT head, UA, UDS ordered and reviewed. Patient given IV NS bolus, IV zosyn for suspected aspiraton pneumonia. 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 Disposition - Disposition Disposition: HOSPITALIZED Disposition Time: 17:12 Condition: STABLE - Clinical Impression Clinical Impression: Hypoxia, Heroin overdose, Aspiration pneumonia Decision To Admit - Pt Status Changed To: Hospital Disposition Of: Inpatient - Admit Certification Admit to Inpatient:: After my assessment, the patient will require hospitalization for at least two midnights. This is because of the severity of symptoms shown, intensity of services needed, and/or the medical risk in this patient being treated as an outpatient. - InPatient: Physician Admission Certification: I certify that this patient requires 2 or more midnights of care for the following reason:: see notes - . Bed Request Type: Telemetry Admitting Physician: Erum Pereyra Patient Diagnosis: Heroin overdose, Hypoxia, Aspiration pneumonia
--- NOTE | 2017-11-22 14:36 | CT ---
Date of service: 11/22/2017 PROCEDURE: CT HEAD WITHOUT CONTRAST. HISTORY: head injury, heroin OD COMPARISON: None available. TECHNIQUE: Axial computed tomography images were obtained through the head/brain without intravenous contrast. Radiation dose: Total exam DLP = 881.6 mGy-cm. This CT exam was performed using one or more of the following dose reduction techniques: Automated exposure control, adjustment of the mA and/or kV according to patient size, and/or use of iterative reconstruction technique. FINDINGS: HEMORRHAGE: No intracranial hemorrhage. BRAIN: No mass effect or edema. No atrophy or chronic microvascular ischemic changes. Small old bilateral basal ganglia lacunar infarcts. VENTRICLES: Unremarkable. No hydrocephalus. CALVARIUM: No fracture. Small right frontal scalp contusion. PARANASAL SINUSES: Chronic ethmoid and sphenoid sinusitis. MASTOID AIR CELLS: Unremarkable as visualized. No inflammatory changes. OTHER FINDINGS: None. IMPRESSION: No intracranial hemorrhage. Chronic paranasal sinusitis. Small right frontal scalp contusion.
[2017-11-22 14:45] LABS: ABG ALLEN TEST POS; ARTERIAL BLOOD GAS HCO3 22.4 mmol/L (21-28); ARTERIAL BLOOD GAS O2 SAT 91.6 % (95-98); ARTERIAL BLOOD GAS PCO2 44 mm/Hg (35-45); ARTERIAL BLOOD GAS PH 7.33 (7.35-7.45); ARTERIAL BLOOD GAS PO2 54 mm/Hg (80-100); ARTERIAL BLOOD GAS TCO2 24.6 mmol/L (22-28)
[2017-11-22] MEDS ORDERED: Piperacillin/Tazobact 3.375 gm 100 ML IVPB STA (14:54)
[2017-11-22] MEDS ORDERED: Albuterol-Ipratrop 3 mg / 0.5 (3 ml) UD INH STA (15:20)
[2017-11-22] MEDS ORDERED: Potassium Chloride 20 mEq ER Tab PO STA ×2 (15:20→15:21)
[2017-11-22] MEDS ORDERED: Iodixanol 320 MG/ML 100 ML BOTTLE IV ONE (15:32)
[2017-11-22] MEDS ORDERED: Piperacillin/Tazobact 3.375 gm 100 ML IVPB ONE (15:42)
[2017-11-22] MEDS ORDERED: Potassium Chloride 20 mEq ER Tab PO ONE (15:42)
[2017-11-22 15:44] LABS: URINE BILIRUBIN NEGATIVE (NEGATIVE); URINE BLOOD NEGATIVE (NEGATIVE); URINE CLARITY Hazy (Clear); URINE COLOR Amber (YELLOW); URINE GLUCOSE (UA) 1+ mg/dL (Normal); URINE LEUKOCYTE ESTERASE NEG Leu/uL (Negative); URINE PROTEIN 1+ mg/dL (NEGATIVE); URINE UROBILINOGEN NORMAL mg/dL (0.2-1.0)
[2017-11-22] MEDS ORDERED: Albuterol-Ipratrop 3 mg / 0.5 (3 ml) UD ONE (15:46)
[2017-11-22 16:04] LABS: BARBITURATES, UR NEGATIVE (NEGATIVE); BENZODIAZEPINES, UR NEGATIVE (NEGATIVE); PHENCYCLIDINE, UR NEGATIVE (NEGATIVE)
[2017-11-22 16:19] LABS: OPIATES, UR POSITIVE (NEGATIVE)
--- NOTE | 2017-11-22 16:52 | CT ---
Date of service: 11/22/2017 PROCEDURE: CT Chest with contrast (Pulmonary Angiogram) HISTORY: SOB, HYPOXIA, R/O PE VS ASPIRATION PNA COMPARISON: None available. TECHNIQUE: Axial computed tomography images were obtained of the chest in the pulmonary arterial phase of enhancement. Coronal and sagittal reformatted images were created and reviewed. Intravenous contrast dose: 100 mL Visipaque 320 Radiation dose: Total exam DLP = 499.24 mGy-cm. This CT exam was performed using one or more of the following dose reduction techniques: Automated exposure control, adjustment of the mA and/or kV according to patient size, and/or use of iterative reconstruction technique. FINDINGS: PULMONARY ARTERIES: Unremarkable. No pulmonary embolism. AORTA: No acute findings. No thoracic aortic aneurysm. LUNGS: There is diffuse heterogeneous ground-glass opacity throughout the right lung with nodular areas of consolidation. There is nonspecific opacity also seen in the dependent portion of the left lower lobe. There are patchy areas of ground-glass opacity to a much lesser extent, in the anterior segment of the left upper lobe. These are nonspecific findings. This is an atypical pattern for aspiration pneumonia. Consider infectious pneumonia, possibly from atypical organism, or noncardiogenic pulmonary edema. . PLEURAL SPACES: Unremarkable. No effusion or pneumothorax. HEART: Unremarkable. No cardiomegaly. No significant pericardial effusion. LYMPH NODES: There is mild right hilar lymphadenopathy, nonspecific. There is no left hilar lymphadenopathy. There is no mediastinal lymphadenopathy. BONES, CHEST WALL: Unremarkable. No fracture or destructive lesion OTHER FINDINGS: Small hiatal hernia. Cholelithiasis without evidence of cholecystitis. IMPRESSION: No evidence of pulmonary embolism. Multifocal heterogeneous ground-glass opacity with nodular areas of consolidation, right lung greater than left. Atypical appearance for aspiration pneumonia. Consider atypical pneumonia (opportunistic infection ) or noncardiogenic pulmonary edema.
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
[2017-11-22] MEDS: Clindamycin 300 MG in Sodium Chloride 0.9% 50 ML IVPB SCH (20:29)
[2017-11-23] MEDS: Piperacillin/Tazobact 3.375 GM in Sodium Chloride 100 ML IVPB SCH ×3 (00:14→16:14)
[2017-11-23 00:36] VITALS: RESP 20
[2017-11-23] MEDS: Albuterol-Ipratrop 3 mg / 0.5 (3 ml) UD IH SCH ×4 (01:18→19:13)
[2017-11-23] MEDS: Clindamycin 300 MG in Sodium Chloride 0.9% 50 ML IVPB SCH ×3 (04:57→21:00)
[2017-11-23 06:56] LABS: HEMOGLOBIN 14.7 g/dL (12.0-18.0); MEAN CELL VOLUME 92.1 fL (80.0-94.0); MEAN CORPUSCULAR HEMOGLOBIN 31.4 pg (27.0-31.0); MEAN CORPUSCULAR HGB CONC 34.1 g/dL (33.0-37.0); MEAN PLATELET VOLUME 9.8 fL (7.2-11.7); RBC 4.69 Mil/uL (4.40-5.90); RED CELL DISTRIBUTION WIDTH 13.9 % (11.5-14.5); WHITE BLOOD COUNT 13.1 K/uL (4.8-10.8)
[2017-11-23 07:23] LABS: IRON 27 ug/dL (49-181)
[2017-11-23 07:28] LABS: ALB/GLOB RATIO 1.3 (1.0-2.1); ALBUMIN 3.6 g/dL (3.5-5.0); ALT/SGPT 43 U/L (21-72); AST/SGOT 28 U/L (17-59); BLOOD UREA NITROGEN 10 mg/dL (9-20); CALCIUM 8.9 mg/dl (8.6-10.4); GFR AFRICAN-AMERICAN > 60; GFR NON-AFRICAN AMERICAN > 60
[2017-11-23 07:42] LABS: HEPATITIS B SURFACE AG Negative (NEGATIVE)
[2017-11-23 07:47] LABS: HEPATITIS A IGM NEGATIVE (NEGATIVE); HEPATITIS B CORE AB NEGATIVE (NEGATIVE)
[2017-11-23 07:50] LABS: % IRON SATURATION 8 (20-55); TOTAL IRON BINDING CAPACITY 332 ug/dL (250-450)
--- NOTE | 2017-11-23 08:48 | PCM.PSYCH ---
Initial Psychiatric Evaluation - Initial Psychiatric Evaluation Type of Admission: Voluntary Legal Status: Capacity Chief Complaint (in patient's own words): "I used heroin again yesterday" History of Present Illness and Precipitating Events: HPI: Patient is a 52 year old single male with history of Hepatitis C , bipolar disorder, suicide attempts who was admitted after he was found unconscious in his mother's house in [place]. He was recently discharged from [facility] inpatient psychiatric unit on 11/02/17 and prescribed Buspar 10mg twice daily, Lexapro 20mg daily and Seroquel 100mg at night. He states he was at [facility] for 3 weeks, but left 2 days ago. He states he does not want to go back to [facility] again. He states he did not want to stay there because of the work hours and the alevism aspect. He states he used 2 bags of heroin intravenously again yesterday around 1pm, after which he states he was found unconscious at his mother's house. Currently, patient states he is stressed out about certain things in his life, but is unable to tell me what exactly about his life is stressful. He admits to feeling anxious and slightly depressed. When asked if he has any suicidal thoughts, he states that "it wouldn 't have mattered if I hadn't survived yesterday," however also states he has no current plan to harm himself. Denies any plans to harm others. He denies any racing thoughts, feeling of paranoia, auditory or visual hallucinations. Prior psychiatric hospitalizations: Admitted here in October 2017, discharged PMH: Hepatitis C - untreated, bipolar disorder PSH: right hip surgery Social: (+) Smokes 6-7 cigarettes/day, (+) occasional ETOH use, (+) uses Xanax occasionally, unable to quantify, (+) IV heroin use, used 10-15 bags daily for 26 years. Lives with his mother in [place] Meds: none, states he left all his medications at [facility] when he left there 2 days ago Allergies: NKDA Current Medications: Active Medications Generic Name Dose Route Start Last Admin Trade Name Freq PRN Reason Stop Dose Admin Acetaminophen 650 mg 11/22/17 21:19 11/22/17 22:02 Tylenol 325mg Tab PO 650 mg Q4H PRN Administration pain fever Albuterol/Ipratropium 3 ml 11/22/17 21:30 11/23/17 07:41 Duoneb 3 Mg/0.5 Mg (3 Ml) Ud IH 3 ml RQ6 PAULINA Administration Enoxaparin Sodium 30 mg 11/23/17 10:00 Lovenox SC DAILY PAULINA Famotidine 40 mg 11/23/17 10:00 Pepcid PO DAILY PAULINA Piperacillin Sod/Tazobactam 100 mls @ 200 mls/hr 11/23/17 00:00 11/23/17 00: 14 Sod 3.375 gm/ Sodium Chloride IVPB 200 mls/hr Q8H PAULINA Administration Protocol Clindamycin Phosphate 300 mg/ 52 mls @ 104 mls/hr 11/22/17 20:00 11/23/17 04: 57 Sodium Chloride IVPB 104 mls/hr Q8H PAULINA Administration Protocol Ondansetron HCl 4 mg 11/22/17 21:19 Zofran Inj IVP Q6 PRN Nausea/Vomiting Quetiapine Fumarate 100 mg 11/22/17 22:00 11/22/17 22:03 Seroquel PO 100 mg HS PAULINA Administration Past Psychiatric History - Past Psychiatric History Previous Treatment History: Inpatient Pertinent Medical Hx (Current Medical&Sleep Prob, Allergies): Allergies Allergy/AdvReac Type Severity Reaction Status Date / Time FISH AdvReac Mild nausea/vomi Verified 10/25/17 17:25 t/rash QUEtiapine [Seroquel] 100 mg PO HS #30 tab 11/02/17 Review of Systems - Psychiatric Psychiatric: Anxiety, Depression. absent: Auditory Hallucinations, Homicidal Ideation, Panic Attacks, Paranoia, Suicidal Ideation, Visual Hallucinations, Tactile Hallucinations Mental Status Examination - Personal Presentation Personal Presentation: Looks stated age - Affect Affect: Constricted - Motor Activity Motor Activity: Calm - Reliability in Providing Information Reliability in Providing Information: Fair - Speech Speech: Organized - Mood Mood: Depressed - Formal Thought Process Formal Thought Process: No Impairment - Hallucinations/Delusions Additional comments: No hallucinations no delusions - Obsessions/Compulsions Obsessions: No Compulsions: No - Cognitive Functions Orientation: Person, Place, Situation, Time Sensorium: Alert Attention/Concentration: Attentive Estimate of Intelligence: Average Judgement: Imparied, as evidence by: Poor judgement Memory: Recent intact, as evidence by: Ability to recall events of the day - Risk Risk: Withdrawal, Diminished functioning DSM 5 DX - DSM 5 DSM 5 Diagnosis: Bipolar disorder Opioid use disorder - Recommended/Plan of Treatment Treatment Recommendations and Plan of Treatment: Patient refusing detox from opioids at this time Case discussed with Dr. Omar Magaña, PGY1
[2017-11-23 08:51] LABS: HEPATITIS C ANTIBODY REACTIVE (NEGATIVE)
[2017-11-23 08:52] LABS: FOLATE 14.1 ng/mL
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
[2017-11-23] MEDS: Enoxaparin 30 mg Syringe SC SCH (10:01)
[2017-11-23] MEDS: Potassium Chloride 20 mEq ER Tab PO SCH (10:02)
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
--- NOTE | 2017-11-23 20:24 | CP.PCM.PN ---
Subjective - Date & Time of Evaluation Date of Evaluation: 11/23/17 Time of Evaluation: 20:24 - Subjective Subjective: CHIEF COMPLAINTS TODAY : afebrile, c/o dry cough Denies shortness of breath. SEEN BY PULMONARY ROS. HEENT : N. Resp : +VE DRY COUGH, +VE EXP WHEEZE , NO pleuritic CP ,or hemoptysis Cardio : No anginal CP, PND, orthopnea, palpitation GI : No abd.pain, n/v ,diarrhea or GI bleeding . MANUFACTURING ADVISOR : No headache, vertigo, focal deficit. Musculoskel : No joint swelling , Derm : No rash Psych : Normal affect. Ext : No swelling ,calf pain PE. Pt. is alert awake in no distress. V.S As noted in the chart Head ,ear nose,throat and eyes : Normal. Neck : Supple with normal carotids. Lungs: BILATERAL RHONCHI AND EXPIRATORY WHEEZE. Heart : S1 & S2 normal with S4. No murmur. Abd : Soft non tender with normal bowel sounds. Neuro : Moves all ext. with no localized deficit. Ext : No edema with intact pulses.Non tender calves Derm : No rashes or decubitus ulcer. LABS/RADIOLOGY: REVIEWED Objective - Vital Signs/Intake and Output Vital Signs (last 24 hours): Temp Pulse Resp BP Pulse Ox 98.3 F 91 H 20 97/57 L 94 L 11/23/17 15:03 11/23/17 15:03 11/23/17 15:03 11/23/17 15:03 11/23/17 15:03 - Medications Medications: Current Medications Acetaminophen (Tylenol 325mg Tab) 650 mg PO Q4H PRN PRN Reason: pain fever Last Admin: 11/22/17 22:02 Dose: 650 mg Albuterol/Ipratropium (Duoneb 3 Mg/0.5 Mg (3 Ml) Ud) 3 ml IH RQ6 [facility] Last Admin: 11/23/17 19:13 Dose: 3 ml Enoxaparin Sodium (Lovenox) 30 mg SC DAILY [facility] Last Admin: 11/23/17 10:01 Dose: 30 mg Famotidine (Pepcid) 40 mg PO DAILY [facility] Last Admin: 11/23/17 10:02 Dose: 40 mg Piperacillin Sod/Tazobactam (Sod 3.375 gm/ Sodium Chloride) 100 mls @ 200 mls/ hr IVPB Q8H PAULINA PRN Reason: Protocol Last Admin: 11/23/17 16:14 Dose: 200 mls/hr Clindamycin Phosphate 300 mg/ (Sodium Chloride) 52 mls @ 104 mls/hr IVPB Q8H PAULINA PRN Reason: Protocol Last Admin: 11/23/17 12:27 Dose: 104 mls/hr Ondansetron HCl (Zofran Inj) 4 mg IVP Q6 PRN PRN Reason: Nausea/Vomiting Potassium Chloride (K-Dur 20 Meq Er Tab) 20 meq PO DAILY [facility] Stop: 11/25/17 10:01 Last Admin: 11/23/17 10:02 Dose: 20 meq Quetiapine Fumarate (Seroquel) 100 mg PO HS [facility] Last Admin: 11/22/17 22:03 Dose: 100 mg - Labs Labs: 11/23/17 06:46 11/23/17 06:46 Assessment and Plan (1) Aspiration pneumonia Assessment & Plan: CONTINUE iv ZOSYN 3.375 EVERY 8 HOURLY 11/22/17. ADD iv CLEOCIN 300 MG iv PIGGYBACK EVERY 8 HOURLY.11/22/17. SPUTUM gRAM STAIN AND CULTURE. Status: Acute (2) Heroin overdose Assessment & Plan: PSYCH EVALUATION IN PROGRESS.. fOLLOW-UP PULMONARY RECOMMENDATIONS. Status: Acute (3) Drug abuse and dependence Status: Acute (4) Depression Status: Acute (5) Positive hepatitis C antibody test Assessment & Plan: PATIENT PRESENTLY ACTIVELY SHOOTING DRUGS INTRAVENOUS HEROIN. pATIENT TO FOLLOW UP PSYCH EVALUATION AND RECOMMENDATIONS. PATIENT ADVISED TO FOLLOW-UP FOR [facility]P [facility] WHEN CLEAN. Status: Acute
[2017-11-24] MEDS: Piperacillin/Tazobact 3.375 GM in Sodium Chloride 100 ML IVPB SCH ×2 (00:14→09:14)
[2017-11-24] MEDS: Albuterol-Ipratrop 3 mg / 0.5 (3 ml) UD IH SCH ×3 (01:23→13:41)
[2017-11-24] MEDS: Clindamycin 300 MG in Sodium Chloride 0.9% 50 ML IVPB SCH ×2 (04:39→12:36)
--- NOTE | 2017-11-24 05:22 | PN ---
Copied To: Erum Pereyra MD Attending MD: Erum Pereyra MD DATE: 11/23/2017 SUBJECTIVE: The patient is a 52-year-old male. The patient was seen and examined at the bedside, looking a lot better. No nausea or vomiting. No fever. No chills. No headache, no dizziness. No chest pain, no palpitation. PHYSICAL EXAMINATION: VITAL SIGNS: Temperature 98.3, pulse 91, respiratory rate 20, blood pressure 97/57, pulse oximetry 94. HEENT: Head, normocephalic and atraumatic. Eyes, PERRLA. Extraocular muscles intact. Conjunctivae clear. Nose is patent. Mucous membranes moist. NECK: Supple. No carotid bruit, JVD, or thyromegaly. CHEST: Bilaterally symmetrical. HEART: S1 and S2 positive. LUNGS: Clear to auscultation. ABDOMEN: Soft. Bowel sounds positive. No organomegaly. EXTREMITIES: No edema. No cyanosis. NEUROLOGICAL: The patient is awake, alert. Moving all four extremities. No focal deficits. MEDICATIONS: Tylenol, DuoNeb, Lovenox, Pepcid, piperacillin/tazobactam, clindamycin, Zofran, potassium, and Seroquel. LABORATORY DATA: White blood cells 13.1, hemoglobin 14.7, hematocrit 43 .2, platelets 196,000. Sodium 141, potassium 3.5, BUN 10, creatinine 0.8, glucose 81. ASSESSMENT AND PLAN: Mr. Dileep Ayala is a 52-year-old male with leukocytosis; hypokalemia, replaced; aspiration pneumonia. He aspirated his vomitus, heroin abuse, heroin overdose, drug dependency, depression, hepatitis C positive, noncompliant, had multiple admissions for his drug detoxification. Seen by psychiatrist and jboss developer and Infectious Disease. Has hypoxia, maybe due to aspiration pneumonia. We will continue present treatment. Gastrointestinal and deep venous thrombosis prophylaxis. Repeat labs. We will follow up. Erum Pereyra MD YEIMY
[2017-11-24] MEDS: Enoxaparin 30 mg Syringe SC SCH (09:16)
[2017-11-24] MEDS: Potassium Chloride 20 mEq ER Tab PO SCH (09:16)
--- NOTE | 2017-11-24 14:18 | RAD ---
Date of service: 11/24/2017 PROCEDURE: Bilateral Feet Radiographs. HISTORY: Pain COMPARISON: None. FINDINGS: BONES: Right Foot: Bone alignment and mineralization are normal. There is no acute displaced fracture or bone destruction. Prominent plantar calcaneal spur and dorsal calcaneal enthesophyte. Left Foot: Bone alignment and mineralization are normal. There is no acute displaced fracture or bone destruction. Prominent plantar calcaneal spur and dorsal calcaneal enthesophyte. JOINTS: Right Foot: Normal. No osteoarthritis. Left Foot: Mild degenerative osteoarthrosis in the 1st MTP joint. SOFT TISSUES: Right Foot: Normal. Left Foot: Normal. OTHER FINDINGS: None. IMPRESSION: No acute fracture or dislocation. Prominent plantar calcaneal spur and dorsal calcaneal enthesophyte. Mild degenerative osteoarthrosis in the left 1st MTP joint.
--- NOTE | 2017-11-24 15:51 | CP.PCM.PN ---
Subjective - Date & Time of Evaluation Date of Evaluation: 11/24/17 Time of Evaluation: 15:50 - Subjective Subjective: -FOLLOW UP WITH DR. AGUDELO IN THE OFFICE TOMORROW---CALL THE OFFICE FOR AN APPOINTMENT TIME. -IT IS RECOMMENDED THAT SEEK TREATMENT FOR YOUR DRUG ABUSE---CONTACT THE OUTPATIENT MENTAL HEALTH OFFICE FOR AN APPOINTMENT: [facility]; [phone]. -CONTINUE HOME MEDICATIONS USUAL. -YOU HAVE BEEN PRESCRIBED AUGMENTIN, AN ANTIBIOTIC, TWICE A DAY FOR 7 DAYS. -FOR ANY OTHER QUESTIONS, CONTACT DR. AGUDELO. Objective - Vital Signs/Intake and Output Vital Signs (last 24 hours): Temp Pulse Resp BP Pulse Ox 98.3 F 82 20 107/67 96 11/24/17 07:10 11/24/17 07:10 11/24/17 07:10 11/24/17 07:10 11/24/17 07:10 Intake and Output: 11/24/17 11/24/17 06:59 18:59 Intake Total 450 Balance 450 - Medications Medications: Current Medications Acetaminophen (Tylenol 325mg Tab) 650 mg PO Q4H PRN PRN Reason: pain fever Last Admin: 11/22/17 22:02 Dose: 650 mg Albuterol/Ipratropium (Duoneb 3 Mg/0.5 Mg (3 Ml) Ud) 3 ml IH RQ6 [facility] Last Admin: 11/24/17 13:41 Dose: 3 ml Enoxaparin Sodium (Lovenox) 30 mg SC DAILY [facility] Last Admin: 11/24/17 09:16 Dose: 30 mg Famotidine (Pepcid) 40 mg PO DAILY [facility] Last Admin: 11/24/17 09:16 Dose: 40 mg Piperacillin Sod/Tazobactam (Sod 3.375 gm/ Sodium Chloride) 100 mls @ 200 mls/ hr IVPB Q8H [facility] PRN Reason: Protocol Last Admin: 11/24/17 09:14 Dose: 200 mls/hr Clindamycin Phosphate 300 mg/ (Sodium Chloride) 52 mls @ 104 mls/hr IVPB Q8H [facility] PRN Reason: Protocol Last Admin: 11/24/17 12:36 Dose: 104 mls/hr Ondansetron HCl (Zofran Inj) 4 mg IVP Q6 PRN PRN Reason: Nausea/Vomiting Potassium Chloride (K-Dur 20 Meq Er Tab) 20 meq PO DAILY [facility] Stop: 11/25/17 10:01 Last Admin: 11/24/17 09:16 Dose: 20 meq Quetiapine Fumarate (Seroquel) 100 mg PO [facility] Last Admin: 11/23/17 21:40 Dose: 100 mg - Labs Labs: 11/23/17 06:46 11/23/17 06:46
[2017-11-24 15:52] VITALS: BP 121/78; PULSE 83; TEMP 97.3; O2SAT 95
--- NOTE | 2017-11-24 21:31 | CARD ---
APPROVED REPORT Date of service: 11/22/2017 EKG Measurement Heart [id number] <Conclusion> Normal sinus rhythm Prolonged QT Abnormal ECG
--- NOTE | 2017-11-25 23:54 | DS ---
Copied To: Erum Pereyra MD Attending MD: Erum Pereyra MD CHIEF COMPLAINT: Altered mental status. HISTORY OF PRESENT ILLNESS: Mr. Jamie Falk is a 52-year-old male came to [facility] with altered mental status. Actually, he was admitted eight weeks ago in [facility] for detoxification. Discharged from rehab and went to [facility] for two [facility]. He just came back one day before. Before he came to the [facility] Emergency Room, he took his drugs and was found unresponsive in his mother's building with vomitus around him and difficulty to arouse. The patient was given 2 mg Narcan in the field with response, admitted using IV heroin on the day of admission. The patient was seen in ER, required consult with Dr. Suzan Flores to rule aspiration pneumonia, Dr. Ezequiel Littlejohn, library circulation technician, and was consulted with the psychiatrist, Dr. Omar Garay. The patient improved today on the day of discharge. According to him, the patient has pain in the left foot. X-ray stat was ordered. Plan was to follow up as outpatient. PAST MEDICAL HISTORY: Hypertension, bipolar disorder, and depression. FAMILY HISTORY: Father and mother, noncontributory. HABITS: Tobacco: Yes. Alcohol: Yes. Substance abuse: Yes. Heroin: IV. REVIEW OF SYSTEMS: The patient was seen and examined at bedside, looking comfortable except the pain in the left foot. Stat x-ray is done. We will do follow up as outpatient. No fever. No chills. No headache. No dizziness. No chest pain. No palpitation. PHYSICAL EXAMINATION: VITAL SIGNS: Temperature 98.3, pulse 82, respiratory rate 20, blood pressure 107/57, pulse oximetry 99. HEENT: Head: Normocephalic and atraumatic. Eyes: PERRLA. Extraocular muscles intact. Conjunctivae clear. Nose patent. Mucous membrane moist. NECK: Supple. No carotid bruit. No JVD or thyromegaly. CHEST: Bilaterally symmetric. HEART: S1 and S2 are positive. LUNGS: Clear to auscultation. ABDOMEN: Soft. Bowel sounds present. No organomegaly. EXTREMITIES: No edema. No cyanosis. NEUROLOGICAL: The patient is awake and alert, moving all four extremities. No focal deficit. MEDICATIONS: Tylenol, albuterol, Lovenox, Pepcid, Zosyn, clindamycin, Zofran, potassium, and Seroquel. LABORATORY DATA: White blood cell 13.1, hemoglobin 14.7, hematocrit 43.2, platelets 193. Sodium 141, potassium 3.5, BUN 10, creatinine 0.8, and glucose 81. ASSESSMENT AND PLAN: Mr. Jamie Falk is a 52-year-old male with leukocytosis and hypokalemia replaced, came with drugs overdose, altered mental status. Narcan was given, improved. History of leukocytosis, aspiration pneumonia due to his aspiration of vomitus, heroin abuse and overdose, drug dependency, depression, hepatitis C positive, noncomplaint, had multiple admissions for drug detoxication. Now, we called consulting psychiatry and library circulation technician. The patient improved and wanted to go home. X-ray of the left foot done, special attention to the toes. It showed no acute fracture or dislocation, prominent plantar calcaneus spur and dorsal calcaneus osteophyte, mild degenerative disk disease of the left first metatarsophalangeal joint. Repeat labs. We will follow up. Erum Pereyra MD
== END 2017-11-24 16:21 | disposition home or self-care (01) | DRG 582 ==
LOC: C.ER 13:34 → C.9E 17:12 → C.6T 17:59
PROVIDERS: ADMIT Internal Medicine; ATTEND Internal Medicine
DX: T40.1X1A Poisoning by heroin, accidental (unintentional), initial encounter (principal); J69.0 Pneumonitis due to inhalation of food and vomit; E87.6 Hypokalemia; R09.02 Hypoxemia; R40.2441 Other coma, without documented Glasgow coma scale score, or with partial score reported, in the field [EMT or ambulance]; F11.20 Opioid dependence, uncomplicated; B19.20 Unspecified viral hepatitis C without hepatic coma; F31.9 Bipolar disorder, unspecified; F17.210 Nicotine dependence, cigarettes, uncomplicated; Z91.19 Patient's noncompliance with other medical treatment and regimen; Y92.9 Unspecified place or not applicable

== ENCOUNTER 2017-11-26 22:18 | Emergency (ER) | payer OTHER ==
[2017-11-26 22:18] VITALS: BMI 29.7
[2017-11-26 22:30] VITALS: RESP 18
[2017-11-26] MEDS ORDERED: Sodium Chloride 0.9% 1,000 ML IV ONE (22:43)
--- NOTE | 2017-11-26 23:04 | C.PDOC ---
History Of Present Illness 52 year old male presents to the ER with a complaint of chest pain, SOB, cough, abdominal pain, vomiting, diarrhea, and left foot pain. Patient was admitted on 11/22/17 with heroin overdose and possible aspiration pneumonia, he received IV antibiotics and while in the hospital complained of left foot pain. Patient was diagnosed with a spur and arthritis, he was discharged 2 days ago on augmentin and advised to follow up at the clinic. Patient was advised by Dr. Pereyra to return if he did not feel well, he reports he has been taking the augmentin twice a day as prescribed, he does not believe he has a fever but feels hot. Time Seen by Provider: 11/26/17 22:32 Chief Complaint (Nursing): Chest Pain History Per: Patient History/Exam Limitations: no limitations Onset/Duration Of Symptoms: Days Current Symptoms Are (Timing): Still Present Associated Symptoms: Nausea, Dyspnea Modifying Factors: None Exacerbating Factors: None Alleviating Factors: None Recent travel outside of the [place]: No Past Medical History Reviewed: Historical Data, Nursing Documentation, Vital Signs Vital Signs: Last Vital Signs Temp 97.5 F L 11/26/17 22:25 Pulse 99 H 11/26/17 22:25 Resp 18 11/26/17 22:25 BP 107/73 11/26/17 22:25 Pulse Ox 97 11/26/17 23:15 - Medical History PMH: Anxiety, Bipolar Disorder, Depression Denies: HIV, HTN, Chronic Kidney Disease, Seizures, Sexually Transmitted Disease - [facility] Procedures DETOXIFICATION SERVICES FOR SUBSTANCE ABUSE TREATMENT (10/25/17) GROUP DISH MAKER FOR SUBSTANCE ABUSE TREATMENT, PSYCHOEDUCATION (10/25/17) GROUP DISH MAKER FOR SUBSTANCE ABUSE, COGNITIVE BEHAVIORAL (10/02/17) GROUP PSYCHOTHERAPY (10/25/17) INDIV DISH MAKER FOR SUBSTANCE ABUSE TREATMENT, CONTINUING CARE (03/31/15) INDIV PSYCHOTHERAPY FOR SUBSTANCE ABUSE TREATMENT, SUPPORT (10/25/17) INDIV PSYCHOTHERAPY FOR SUBSTANCE ABUSE, COGNITIV BEHAVIORAL (10/02/17) INDIV PSYCHOTHERAPY FOR SUBSTANCE ABUSE, PSYCHOEDUCATION (10/02/17) INDIVIDUAL PSYCHOTHERAPY, COGNITIVE-BEHAVIORAL (10/02/17) INDIVIDUAL PSYCHOTHERAPY, SUPPORTIVE (10/25/17) INJECT/INFUSE NEC (03/03/13) MEDICATION MANAGEMENT (10/25/17) Family History: States: Unknown Family Hx - Social History Hx Tobacco Use: Yes Hx Alcohol Use: Yes (occasionnally) Hx Substance Use: Yes (heroin) - Immunization History Hx Tetanus Toxoid Vaccination: No Hx Influenza Vaccination: No Hx Pneumococcal Vaccination: No Review Of Systems Constitutional: Negative for: Fever Cardiovascular: Positive for: Chest Pain Respiratory: Positive for: Cough, Shortness of Breath Gastrointestinal: Positive for: Vomiting, Abdominal Pain, Diarrhea Musculoskeletal: Positive for: Foot Pain Neurological: Negative for: Weakness, Numbness Physical Exam - Physical Exam Appears: Non-toxic Skin: Normal Color, Warm, Dry Head: Atraumatic, Normacephalic Eye(s): bilateral: Normal Inspection Oral Mucosa: Moist Throat: Normal, No Erythema, No Exudate Neck: Normal, Supple Chest: Symmetrical, No Tenderness Cardiovascular: Rhythm Regular Respiratory: Normal Breath Sounds, No Rales, No Rhonchi, No Wheezing Gastrointestinal/Abdominal: Soft, No Tenderness Extremity: Normal ROM (x4), Capillary Refill (<2 seconds), No Deformity, No Swelling, Other (point tenderness to plantar aspect of left foot on the ball, no erythema) Pulses: Left Dorsalis Pedis: Normal, Right Dorsalis Pedis: Normal Neurological/Psych: Oriented x3, Normal Speech, Normal Motor, Normal Sensation ED Course And Treatment - Laboratory Results Result Diagrams: 11/26/17 23:01 11/26/17 23:01 Lab Interpretation: No Acute Changes ECG: Interpreted By Ok ECG Rhythm: Sinus Rhythm ECG Interpretation: Normal O2 Sat by Pulse Oximetry: 97 (Room air) Pulse Ox Interpretation: Normal - Radiology CXR: Interpreted by Ok CXR Interpretation: Yes: No Acute Disease Progress Note: EKG, blood work, and CXR ordered. IV fluids and zofran administered. Reevaluation Time: 23:43 Reassessment Condition: Improved (Patient appears in no distress. Abdomen remains soft and nontender. No evidence of coughing or shortness of breath.) Disposition Counseled Patient/Family Regarding: Studies Performed, Diagnosis, Need For Followup, Rx Given - Disposition Referrals: [facility] at [facility] [Outside] Disposition: HOME/ ROUTINE Disposition Time: 23:44 Condition: IMPROVED Additional Instructions: Encourage plenty of fluids and rest. Take a probiotic while on the antibiotics. Take Ibuprophen or Tylenol for foot pain. Try using an orthotic in your shoes for your foot pain. Prescriptions: Ondansetron ODT [Zofran ODT] 1 odt PO BID PRN #6 odt PRN Reason: Nausea/Vomiting Instructions: Antibiotic-Associated Diarrhea (DC), Nausea and Vomiting, Adult ( DC) Forms: [facility] ([place]) - Clinical Impression Clinical Impression: Antibiotic-associated diarrhea, Nausea & vomiting, Foot pain - Scribe Statement The provider has reviewed the documentation as recorded by the Scribela Ontiveros All medical record entries made by the Ignacioibela were at my direction and personally dictated by me. I have reviewed the chart and agree that the record accurately reflects my personal performance of the history, physical exam, medical decision making, and the department course for this patient. I have also personally directed, reviewed, and agree with the discharge instructions and disposition.
[2017-11-26 23:12] LABS: BASO % 0.4 % (0.0-2.0); EOS # 0.2 K/uL (0.0-0.7); EOS % 2.2 % (0.0-4.0); HEMOGLOBIN 15.8 g/dL (12.0-18.0); LYMPH # 1.4 K/uL (1.0-4.3); LYMPH % 17.2 % (20.0-40.0); MEAN CELL VOLUME 92.8 fL (80.0-94.0); MEAN CORPUSCULAR HEMOGLOBIN 32.3 pg (27.0-31.0); MEAN CORPUSCULAR HGB CONC 34.8 g/dL (33.0-37.0); MEAN PLATELET VOLUME 9.2 fL (7.2-11.7); MONO # 0.7 K/uL (0.0-0.8); MONO % 8.6 % (0.0-10.0); NEUT # 5.9 K/uL (1.8-7.0); NEUT % 71.6 % (50.0-75.0); NRBC % 0.1 % (0.0-2.0); RBC 4.89 Mil/uL (4.40-5.90); RED CELL DISTRIBUTION WIDTH 13.8 % (11.5-14.5); WHITE BLOOD COUNT 8.3 K/uL (4.8-10.8)
[2017-11-26] MEDS ORDERED: Sodium Chloride 0.9% 1,000 ML ONE (23:13)
[2017-11-26 23:29] LABS: ALB/GLOB RATIO 1.4 (1.0-2.1); ALBUMIN 4.5 g/dL (3.5-5.0); ALT/SGPT 158 U/L (21-72); AST/SGOT 95 U/L (17-59); BLOOD UREA NITROGEN 12 mg/dL (9-20); GFR AFRICAN-AMERICAN > 60; GFR NON-AFRICAN AMERICAN > 60
[2017-11-26 23:56] VITALS: BP 117/76; PULSE 78; TEMP 98.3; O2SAT 98
--- NOTE | 2017-11-27 08:36 | RAD ---
Date of service: 11/26/2017 HISTORY: chest pain COMPARISON: Frontal chest radiograph 11/22/2017. TECHNIQUE: Chest PA and lateral FINDINGS: LUNGS: No active pulmonary disease. PLEURA: No significant pleural effusion identified. No pneumothorax apparent. CARDIOVASCULAR: Normal. OSSEOUS STRUCTURES: No significant abnormalities. VISUALIZED UPPER ABDOMEN: Normal. OTHER FINDINGS: None. IMPRESSION: No interval acute cardiopulmonary disease appreciated.
--- NOTE | 2017-11-28 12:11 | CARD ---
APPROVED REPORT Date of service: 11/26/2017 EKG Measurement Heart [id number] <Conclusion> Normal sinus rhythm Normal ECG
== END 2017-11-26 23:58 | disposition home or self-care (01) ==
LOC: C.ER 22:18
DX: R19.7 Diarrhea, unspecified (principal); R11.2 Nausea with vomiting, unspecified; M79.672 Pain in left foot
CPT/HCPCS: 71046; 80053; 84484; 85025; 93005; 96361; 96374; 99284; J2405; J7030

== ENCOUNTER 2017-11-27 16:56 | Emergency (ER) | payer OTHER ==
[2017-11-27 16:57] VITALS: BMI 29.7
[2017-11-27 17:42] LABS: BASO % 0.6 % (0.0-2.0); EOS # 0.3 K/uL (0.0-0.7); EOS % 3.2 % (0.0-4.0); LYMPH # 1.4 K/uL (1.0-4.3); LYMPH % 17.6 % (20.0-40.0); MEAN CELL VOLUME 92.1 fL (80.0-94.0); MEAN CORPUSCULAR HEMOGLOBIN 31.6 pg (27.0-31.0); MEAN CORPUSCULAR HGB CONC 34.3 g/dL (33.0-37.0); MEAN PLATELET VOLUME 8.9 fL (7.2-11.7); MONO # 0.6 K/uL (0.0-0.8); MONO % 8.2 % (0.0-10.0); NEUT # 5.6 K/uL (1.8-7.0); NEUT % 70.4 % (50.0-75.0); RBC 5.06 Mil/uL (4.40-5.90); RED CELL DISTRIBUTION WIDTH 13.7 % (11.5-14.5); WHITE BLOOD COUNT 7.9 K/uL (4.8-10.8)
[2017-11-27 17:59] LABS: ALB/GLOB RATIO 1.4 (1.0-2.1); ALBUMIN 4.3 g/dL (3.5-5.0); ALT/SGPT 173 U/L (21-72); AST/SGOT 83 U/L (17-59); BLOOD UREA NITROGEN 14 mg/dL (9-20); CALCIUM 8.8 mg/dl (8.6-10.4); GFR AFRICAN-AMERICAN > 60; GFR NON-AFRICAN AMERICAN > 60
[2017-11-27 18:04] LABS: URINE BACTERIA RARE (<OCC); URINE BILIRUBIN NEGATIVE (NEGATIVE); URINE BLOOD NEGATIVE (NEGATIVE); URINE CLARITY Hazy (Clear); URINE COLOR Amber (YELLOW); URINE GLUCOSE (UA) NORMAL (Normal); URINE LEUKOCYTE ESTERASE NEG Leu/uL (Negative); URINE PROTEIN 2+ mg/dL (NEGATIVE)
[2017-11-27 18:09] LABS: BARBITURATES, UR NEGATIVE (NEGATIVE); BENZODIAZEPINES, UR NEGATIVE (NEGATIVE); PHENCYCLIDINE, UR NEGATIVE (NEGATIVE)
--- NOTE | 2017-11-27 18:20 | C.PDOC ---
History Of Present Illness 52 year old male presents to the emergency department with reports of suicidal ideation. Patient states that he wants to harm himself due to feeling depressed recently. He admits to heroin use. Time Seen by Provider: 11/27/17 17:12 Chief Complaint (Nursing): Psychiatric Evaluation History Per: Patient History/Exam Limitations: no limitations Onset/Duration Of Symptoms: Hrs Current Symptoms Are (Timing): Still Present Suicide/Self Injury Attempted (Context): None Modifying Factor(s): Other (heroin) Associated Symptoms: Suicidal Thoughts Past Medical History Reviewed: Historical Data, Nursing Documentation, Vital Signs Vital Signs: Last Vital Signs Temp 97.3 F L 11/27/17 17:03 Pulse 84 11/27/17 17:03 Resp 20 11/27/17 17:03 BP 95/63 L 11/27/17 17:03 Pulse Ox 94 L 11/27/17 18:42 - Medical History PMH: Anxiety, Bipolar Disorder, Depression Denies: HIV, HTN, Chronic Kidney Disease, Seizures, Sexually Transmitted Disease Surgical History: No Surg Hx - [facility] Procedures DETOXIFICATION SERVICES FOR SUBSTANCE ABUSE TREATMENT (10/25/17) GROUP CHIEF COOK FOR SUBSTANCE ABUSE TREATMENT, PSYCHOEDUCATION (10/25/17) GROUP CHIEF COOK FOR SUBSTANCE ABUSE, COGNITIVE BEHAVIORAL (10/02/17) GROUP PSYCHOTHERAPY (10/25/17) INDIV CHIEF COOK FOR SUBSTANCE ABUSE TREATMENT, CONTINUING CARE (03/31/15) INDIV PSYCHOTHERAPY FOR SUBSTANCE ABUSE TREATMENT, SUPPORT (10/25/17) INDIV PSYCHOTHERAPY FOR SUBSTANCE ABUSE, COGNITIV BEHAVIORAL (10/02/17) INDIV PSYCHOTHERAPY FOR SUBSTANCE ABUSE, PSYCHOEDUCATION (10/02/17) INDIVIDUAL PSYCHOTHERAPY, COGNITIVE-BEHAVIORAL (10/02/17) INDIVIDUAL PSYCHOTHERAPY, SUPPORTIVE (10/25/17) INJECT/INFUSE NEC (03/03/13) MEDICATION MANAGEMENT (10/25/17) Family History: States: No Known Family Hx - Social History Hx Tobacco Use: Yes Hx Alcohol Use: No (occasionnally) Hx Substance Use: Yes (heroin) - Immunization History Hx Tetanus Toxoid Vaccination: No Hx Influenza Vaccination: No Hx Pneumococcal Vaccination: No Review Of Systems Psych: Positive for: Suicidal ideation Physical Exam - Physical Exam Appears: Non-toxic, No Acute Distress Skin: Warm, Dry Head: Atraumatic, Normacephalic Eye(s): bilateral: Normal Inspection Nose: Normal Neck: Normal, Supple Chest: Symmetrical, No Tenderness Cardiovascular: Rhythm Regular, No Murmur Respiratory: Normal Breath Sounds, No Rales, No Rhonchi, No Wheezing Extremity: Normal ROM Neurological/Psych: Oriented x3, Normal Speech, Normal Cognition ED Course And Treatment - Laboratory Results Result Diagrams: 11/27/17 17:38 11/27/17 17:38 O2 Sat by Pulse Oximetry: 94 (RA) Pulse Ox Interpretation: Abnormal Medical Decision Making Medical Decision Making: Plan: Alcohol Serum CMP Drug Screen CBC Urinalysis Assessment: Suicidal Ideation 1840 - patient medically cleared for crisis. Patient s/o to Dr. Boone pending crisis evaluation and disposition Disposition - Disposition Disposition Time: 18:43 Condition: STABLE Forms: [facility] ([place]ian) - Clinical Impression Clinical Impression: Depression - Scribe Statement The provider has reviewed the documentation as recorded by the Scribe (Dmitri Pereyra) Physician Patient Turnover Patient Signed Over To: Roni Boone DO Handoff Comments: pending crisis evaluation
[2017-11-27 18:38] LABS: OPIATES, UR POSITIVE (NEGATIVE)
[2017-11-27 19:24] VITALS: BP 116/75; PULSE 69; RESP 16; TEMP 97.6; O2SAT 98
== END 2017-11-27 19:25 | disposition home or self-care (01) ==
LOC: C.ER 16:56
DX: F32.9 Major depressive disorder, single episode, unspecified (principal); F11.10 Opioid abuse, uncomplicated

== ENCOUNTER 2017-11-28 18:00 | Emergency (ER) | payer OTHER ==
[2017-11-28 18:00] VITALS: BMI 29.7
[2017-11-28 18:09] VITALS: BP 102/69; PULSE 91; RESP 18; TEMP 98.3; O2SAT 95
[2017-11-28 18:42] LABS: URINE BILIRUBIN 1+ (NEGATIVE); URINE BLOOD NEGATIVE (NEGATIVE); URINE CLARITY Hazy (Clear); URINE COLOR Amber (YELLOW); URINE GLUCOSE (UA) NORMAL (Normal); URINE LEUKOCYTE ESTERASE NEG Leu/uL (Negative); URINE PROTEIN 2+ mg/dL (NEGATIVE)
[2017-11-28 18:46] LABS: BASO # 0.1 K/uL (0.0-0.2); BASO % 0.6 % (0.0-2.0); EOS # 0.2 K/uL (0.0-0.7); EOS % 2.6 % (0.0-4.0); HEMOGLOBIN 15.8 g/dL (12.0-18.0); LYMPH # 1.9 K/uL (1.0-4.3); LYMPH % 21.4 % (20.0-40.0); MEAN CELL VOLUME 91.7 fL (80.0-94.0); MEAN CORPUSCULAR HEMOGLOBIN 31.4 pg (27.0-31.0); MEAN CORPUSCULAR HGB CONC 34.2 g/dL (33.0-37.0); MEAN PLATELET VOLUME 9.2 fL (7.2-11.7); MONO # 0.9 K/uL (0.0-0.8); MONO % 9.8 % (0.0-10.0); NEUT # 5.8 K/uL (1.8-7.0); NEUT % 65.6 % (50.0-75.0); RBC 5.03 Mil/uL (4.40-5.90); RED CELL DISTRIBUTION WIDTH 13.6 % (11.5-14.5); WHITE BLOOD COUNT 8.9 K/uL (4.8-10.8)
[2017-11-28 19:03] LABS: BARBITURATES, UR NEGATIVE (NEGATIVE); BENZODIAZEPINES, UR NEGATIVE (NEGATIVE); PHENCYCLIDINE, UR NEGATIVE (NEGATIVE)
[2017-11-28 19:05] LABS: OPIATES, UR POSITIVE (NEGATIVE)
[2017-11-28 19:10] LABS: ALB/GLOB RATIO 1.3 (1.0-2.1); ALBUMIN 4.6 g/dL (3.5-5.0); ALT/SGPT 196 U/L (21-72); AST/SGOT 93 U/L (17-59); BLOOD UREA NITROGEN 15 mg/dL (9-20); CALCIUM 9.8 mg/dl (8.6-10.4); GFR AFRICAN-AMERICAN > 60; GFR NON-AFRICAN AMERICAN > 60
--- NOTE | 2017-11-28 20:02 | C.PDOC ---
Time Seen by Provider: 11/28/17 18:36 Chief Complaint (Nursing): Psychiatric Evaluation Past Medical History Vital Signs: Last Vital Signs Temp 98.3 F 11/28/17 18:06 Pulse 91 H 11/28/17 18:06 Resp 18 11/28/17 18:06 BP 102/69 11/28/17 18:06 Pulse Ox 95 11/28/17 18:06 - Medical History PMH: Anxiety, Bipolar Disorder, Depression, Hepatitis (Hep C) Denies: Diabetes, HIV, HTN, Chronic Kidney Disease, Seizures, Sexually Transmitted Disease - [facility] Procedures DETOXIFICATION SERVICES FOR SUBSTANCE ABUSE TREATMENT (10/25/17) GROUP THERMOSTATIC CONTROLS SUPERVISOR FOR SUBSTANCE ABUSE TREATMENT, PSYCHOEDUCATION (10/25/17) GROUP THERMOSTATIC CONTROLS SUPERVISOR FOR SUBSTANCE ABUSE, COGNITIVE BEHAVIORAL (10/02/17) GROUP PSYCHOTHERAPY (10/25/17) INDIV THERMOSTATIC CONTROLS SUPERVISOR FOR SUBSTANCE ABUSE TREATMENT, CONTINUING CARE (03/31/15) INDIV PSYCHOTHERAPY FOR SUBSTANCE ABUSE TREATMENT, SUPPORT (10/25/17) INDIV PSYCHOTHERAPY FOR SUBSTANCE ABUSE, COGNITIV BEHAVIORAL (10/02/17) INDIV PSYCHOTHERAPY FOR SUBSTANCE ABUSE, PSYCHOEDUCATION (10/02/17) INDIVIDUAL PSYCHOTHERAPY, COGNITIVE-BEHAVIORAL (10/02/17) INDIVIDUAL PSYCHOTHERAPY, SUPPORTIVE (10/25/17) INJECT/INFUSE NEC (03/03/13) MEDICATION MANAGEMENT (10/25/17) Family History: States: Unknown Family Hx - Social History Hx Tobacco Use: Yes Hx Alcohol Use: No (occasionnally) Hx Substance Use: Yes (heroin) - Immunization History Hx Tetanus Toxoid Vaccination: No Hx Influenza Vaccination: No Hx Pneumococcal Vaccination: No ED Course And Treatment - Laboratory Results Result Diagrams: 11/28/17 18:42 11/28/17 18:42 Lab Interpretation: Abnormal (tox + opiates, amphetamines, cocaine, THC) O2 Sat by Pulse Oximetry: 95 Reevaluation Time: 20:00 Reassessment Condition: Improved - Physician Consult Information Outcome Of Conversation: 2000: d/w Crisis, per Dr. Delatorre- will d/c for opt f/u. Medical Decision Making Medical Decision Making: polysubstance abuse, depression Disposition Doctor Will See Patient In The: Office Counseled Patient/Family Regarding: Studies Performed, Diagnosis - Disposition Disposition: HOME/ ROUTINE Disposition Time: 20:01 Condition: GOOD Forms: [facility] (Yoruba) - Clinical Impression Clinical Impression: Polysubstance abuse, Depression
== END 2017-11-28 20:13 | disposition home or self-care (01) ==
LOC: C.ER 18:00
DX: F19.10 Other psychoactive substance abuse, uncomplicated (principal); F32.9 Major depressive disorder, single episode, unspecified

== ENCOUNTER 2018-02-06 16:54 | Inpatient (IN) | payer OTHER ==
[2018-02-06 16:54] VITALS: BMI 29.7
[2018-02-06 18:14] LABS: BASO % 0.4 % (0.0-2.0); EOS # 0.3 K/uL (0.0-0.7); EOS % 2.8 % (0.0-4.0); LYMPH # 1.3 K/uL (1.0-4.3); LYMPH % 13.7 % (20.0-40.0); MEAN CELL VOLUME 88.5 fL (80.0-94.0); MEAN CORPUSCULAR HEMOGLOBIN 30.1 pg (27.0-31.0); MEAN PLATELET VOLUME 9.2 fL (7.2-11.7); MONO # 0.7 K/uL (0.0-0.8); MONO % 7.6 % (0.0-10.0); NEUT # 7.1 K/uL (1.8-7.0); NEUT % 75.5 % (50.0-75.0); NRBC % 0.1 % (0.0-2.0); RBC 4.65 Mil/uL (4.40-5.90); RED CELL DISTRIBUTION WIDTH 13.8 % (11.5-14.5); WHITE BLOOD COUNT 9.5 K/uL (4.8-10.8)
[2018-02-06 18:24] LABS: URINE BACTERIA RARE (<OCC); URINE BILIRUBIN NEGATIVE (NEGATIVE); URINE BLOOD NEGATIVE (NEGATIVE); URINE CLARITY Clear (Clear); URINE COLOR Yellow (YELLOW); URINE GLUCOSE (UA) NORMAL (Normal); URINE LEUKOCYTE ESTERASE NEG Leu/uL (Negative); URINE PROTEIN NEGATIVE (NEGATIVE); URINE UROBILINOGEN NORMAL mg/dL (0.2-1.0)
--- NOTE | 2018-02-06 18:29 | C.PDOC ---
History Of Present Illness 53 year old male presents to the ED for psychiatric evaluation of suicidal ideation and depression. Patient states he has been regularly using heroin since 2010. He has history of multiple previous psychiatric evaluations. Patient de nies homicidal ideation or any other substance abuse at this time. Time Seen by Provider: 02/06/18 17:39 Chief Complaint (Nursing): Psychiatric Evaluation History Per: Patient History/Exam Limitations: no limitations Onset/Duration Of Symptoms: Hrs Current Symptoms Are (Timing): Still Present Suicide/Self Injury Attempted (Context): None Modifying Factor(s): Narcotics (heroin ) Associated Symptoms: Depression, Suicidal Thoughts Involuntary Hold By: None Recent travel outside of the [place]: No Additional History Per: Patient Past Medical History Reviewed: Historical Data, Nursing Documentation, Vital Signs Vital Signs: Last Vital Signs Temp 98.2 F 02/06/18 17:30 Pulse 86 02/06/18 17:30 Resp 18 02/06/18 17:30 BP 113/75 02/06/18 17:30 Pulse Ox 94 L 02/06/18 17:30 - Medical History PMH: Anxiety, Bipolar Disorder, Depression, Hepatitis (Hep C) Denies: Diabetes, HIV, HTN, Chronic Kidney Disease, Seizures, Sexually Transmitted Disease Surgical History: No Surg Hx - [facility] Procedures DETOXIFICATION SERVICES FOR SUBSTANCE ABUSE TREATMENT (10/25/17) GROUP CATALOGUE CLERK FOR SUBSTANCE ABUSE TREATMENT, PSYCHOEDUCATION (10/25/17) GROUP CATALOGUE CLERK FOR SUBSTANCE ABUSE, COGNITIVE BEHAVIORAL (10/02/17) GROUP PSYCHOTHERAPY (10/25/17) INDIV CATALOGUE CLERK FOR SUBSTANCE ABUSE TREATMENT, CONTINUING CARE (03/31/15) INDIV PSYCHOTHERAPY FOR SUBSTANCE ABUSE TREATMENT, SUPPORT (10/25/17) INDIV PSYCHOTHERAPY FOR SUBSTANCE ABUSE, COGNITIV BEHAVIORAL (10/02/17) INDIV PSYCHOTHERAPY FOR SUBSTANCE ABUSE, PSYCHOEDUCATION (10/02/17) INDIVIDUAL PSYCHOTHERAPY, COGNITIVE-BEHAVIORAL (10/02/17) INDIVIDUAL PSYCHOTHERAPY, SUPPORTIVE (10/25/17) INJECT/INFUSE NEC (03/03/13) MEDICATION MANAGEMENT (10/25/17) Family History: States: Unknown Family Hx - Social History Hx Tobacco Use: Yes Hx Alcohol Use: No (occasionnally) Hx Substance Use: Yes (heroin) - Immunization History Hx Tetanus Toxoid Vaccination: No Hx Influenza Vaccination: No Hx Pneumococcal Vaccination: No Review Of Systems Psych: Positive for: Depression, Suicidal ideation. Negative for: Other (homicidal ideation ) Physical Exam - Physical Exam Appears: Non-toxic, No Acute Distress Skin: Normal Color, Warm, Dry Head: Atraumatic, Normacephalic Eye(s): bilateral: Other (pinpoint pupils ) Oral Mucosa: Moist Neck: Supple Chest: Symmetrical, No Deformity Cardiovascular: Rhythm Regular Respiratory: No Accessory Muscle Use Extremity: Normal ROM Neurological/Psych: Other (bizarre affect) ED Course And Treatment - Laboratory Results Result Diagrams: 02/06/18 18:10 02/06/18 18:10 Lab Interpretation: Abnormal (tox + benzo/opiates) O2 Sat by Pulse Oximetry: 94 Progress Note: Bloodwork and urinalysis ordered and reviewed. Case discussed with sheet metal lay out worker, who will evaluate the patient at bedside. Reevaluation Time: 19:30 Reassessment Condition: Improved - Physician Consult Information Outcome Of Conversation: 193: d/w Crisis, ok to admit to psych Disposition Doctor Will See Patient In The: Hospital Counseled Patient/Family Regarding: Studies Performed, Diagnosis - Disposition Disposition: HOSPITALIZED Disposition Time: 19:30 Condition: GOOD Forms: [facility] (Ivorian) - Clinical Impression Clinical Impression: Opioid use disorder, severe, dependence, Depression - Scribe Statement The provider has reviewed the documentation as recorded by the Scribe (Lisa Price) Provider Attestation: All medical record entries made by the Scribe were at my direction and personally dictated by me. I have reviewed the chart and agree that the record accurately reflects my personal performance of the history, physical exam, medical decision making, and the department course for this patient. I have also personally directed, reviewed, and agree with the discharge instructions and disposition.
[2018-02-06 18:34] LABS: BARBITURATES, UR NEGATIVE (NEGATIVE); PHENCYCLIDINE, UR NEGATIVE (NEGATIVE)
[2018-02-06 18:57] LABS: ALB/GLOB RATIO 1.2 (1.0-2.1); ALBUMIN 4.4 g/dL (3.5-5.0); ALT/SGPT 49 U/L (21-72); AST/SGOT 55 U/L (17-59); BLOOD UREA NITROGEN 19 mg/dL (9-20); CALCIUM 9.7 mg/dl (8.6-10.4); GFR NON-AFRICAN AMERICAN > 60
[2018-02-06 19:06] LABS: BENZODIAZEPINES, UR POSITIVE (NEGATIVE); OPIATES, UR POSITIVE (NEGATIVE)
--- NOTE | 2018-02-06 20:45 | PCM.BM ---
<Macey Miranda - Last Filed: 02/06/18 20:45> Treatment Plan Problems - Problems identified on initial assessmt depression Date Initiated: 02/06/18 Time Initiated: 20:45 Assessment reference: ISACC ESPINOSA Status: Monitor Treatment assets and liabiliti Patient Assests: adapts well, cooperative, educated, motivated, ADL independent, physically healthy, negotiates basic needs, cognitively intact, good interpersonal skills <Ilan Conde - Last Filed: 02/08/18 13:11> - Diagnosis (1) Opioid use disorder, severe, dependence Status: Acute Interventions: 02/08/18 13:11 * Assess 7x/week regarding severity of withdrawal * Educate regarding risks, benefits, side effects and alternatives of medications * Use Motivational Interviewing for abstinence * Use CBT for relapse prevention * Medication management for withdrawal symptoms * Encourage medication assisted treatment * (2) Depressive disorder Status: Acute Interventions: 02/08/18 13:11 * Assess/adjust medications daily and /or as needed * See patient on an individual basis 7x/week to assess symptoms of depression * Monitor for side effects & effectiveness of medications * <Dayana Peraza - Last Filed: 02/08/18 16:16> Family Contact Family involvement: Patient does not wish Family/SO involvement Family contact: Patient declines to allow family contact at present - Goals for Treatment Patient goals for treatment: "I need subaxone treatment." Discharge/Continuing Care - Education Needs Education Needs: Patient Medication, Patient Diagnosis/Disease Process, Patient Coping Skills, Patient Placement options - Discharge Discharge Criteria: Free of Suicidal thoughts, Free of agitation, Normal sleep pattern, Ability to care for self, No longer exhibiting s/s of withdrawal, Reduction of target symptoms Discharge to:: Home, With Family - Treatment Team Participation Discussed with Family/SO: No Was Patient/Family/SO present at Treatment Team Meeting: Yes
[2018-02-07 06:07] VITALS: O2SAT 99
--- NOTE | 2018-02-07 11:28 | PCM.PSYCH ---
Initial Psychiatric Evaluation - Initial Psychiatric Evaluation Type of Admission: Voluntary Legal Status: Capacity Chief Complaint (in patient's own words): "I relapsed" History of Present Illness and Precipitating Events: The patient is seen, chart reviewed, case discussed. He is well known to the typewriter assembler from patient's previous admissions. This is a 53-year-old male, single, homeless, unemployed. He stays with friends or mother at times. He claims he was sad b/c his mother is very sick and may be dying and so he went back to his neighborhood and relapsed. He feels depressed and anxious b/c of his stressors and had suicidal thoughts and history of attempts in the past. He uses 15-20 bags IV, last use was yesterday. He denies using other drugs but he drinks about 10 cans of beer every day, but denies any withdrawal symptoms. He smokes MJ and uses Xanax and klonopin, mostly from a doctor but not always. No seizures but he has had withdrawal symptoms. He was also in [facility] and got suboxone but couldn't continue b/c of his [place] insurance, and then [facility] didn't take him b/c he was getting benzos from a regular dr, not psychiatrist. No psychosis or mark now. Psychiatric history: He was admitted more than 5 times. Alleged suicide attempt last year. He was on Seroquel, Remeron and Neurontin in the past. Family psych history: None known Medical history: Hepatitis C. Current Medications: Active Medications Generic Name Dose Route Start Last Admin Trade Name Freq PRN Reason Stop Dose Admin Ibuprofen 600 mg 02/06/18 21:07 Motrin Tab PO Q6 PRN Pain, moderate (4-7) Loperamide HCl 2 mg 02/06/18 21:10 Imodium PO Q6 PRN Diarrhea Methadone HCl 15 mg 02/07/18 10:00 02/07/18 10:40 Methadone PO 02/11/18 09:59 15 mg Q24H PAULINA Administration Taper Ondansetron HCl 4 mg 02/06/18 21:08 Zofran Tab PO Q6 PRN Nausea/Vomiting Quetiapine Fumarate 25 mg 02/06/18 22:00 02/06/18 21:25 Seroquel PO 25 mg HS PAULINA Administration Past Psychiatric History - Past Psychiatric History Previous Treatment History: Inpatient Pertinent Medical Hx (Current Medical&Sleep Prob, Allergies): Allergies Allergy/AdvReac Type Severity Reaction Status Date / Time FISH AdvReac Mild nausea/vomi Verified 11/28/17 18:08 t/rash QUEtiapine [Seroquel] 100 mg PO HS #30 tab 11/24/17 Review of Systems - Neurological Neurological: UNREMARKABLE - Psychiatric Psychiatric: Abnormal Sleep Pattern, Anhedonia, Anxiety, Behavioral Changes, Change in Appetite, Depression, Difficulty Concentrating, Irritability, Mood Swings, Paranoia. absent: Hallucinations, Homicidal Ideation, Suicidal Ideation Mental Status Examination - Personal Presentation Personal Presentation: Looks older than stated age - Affect Affect: Constricted - Motor Activity Motor Activity: Calm - Reliability in Providing Information Reliability in Providing Information: Good - Speech Speech: Organized - Mood Mood: Depressed, Anxious - Formal Thought Process Formal Thought Process: No Impairment - Cognitive Functions Orientation: Person, Place, Situation, Time Sensorium: Alert Attention/Concentration: Easily distracted Abstract Thinking: [place] Estimate of Intelligence: Average Judgement: Intact, as evidence by: Insight regarding need for hospitalization Memory: Recent intact, as evidence by: Ability to recall events of the day, Remote intact, as evidenced by: Abilit to recall sig. life events - Risk Risk: Withdrawal, Diminished functioning - Strength & Assets Inventory Strength & Assets Inventory: Cooperative - Limitations Limitations: Living alone DSM 5 DX - DSM 5 DSM 5 Diagnosis: Primary: Major depressive disorder-recurrent, severe not psychotic Opioid use disorder- severe Opioid withdrawal, mild Alcohol use d/o Sedative, hypnotic use d/o - severe Cannabis use d/o Personality d/o - unspecified - Recommended/Plan of Treatment Treatment Recommendations and Plan of Treatment: Nixon. depression: -Prozac 20 mg daily -Continue Seroquel 100 mg for irritability depression and insomnia -Psychoeducation and support -Use CBT -Attend groups and activities Opioid use disorder is-withdrawal: -Methadone detox by 20 mg and then go down 5 mg every day -When necessary medications -Attend groups and activities -Use UT for abstinence and long-term rehabilitation -Consider maintenance medications Alcohol/Benzo use disorder: -Monitor symptoms -Librium detox -Depakote -Gabapentin -Support psychoeducation and use UT -Attend groups and activities 33 minutes Projected ELOS: 5 days - Smoking Cessation Smoking Cessation Initiated: Yes
[2018-02-07] MEDS: Divalproex 500 mg DR Tab PO SCH (17:17)
[2018-02-08 06:23] VITALS: RESP 20
[2018-02-08] MEDS: Divalproex 500 mg DR Tab PO SCH ×2 (09:45→17:49)
--- NOTE | 2018-02-08 11:59 | PCM.PYCHPN ---
Psychiatric Progress Note - Psychiatric Progress Note Patient seen today, length of contact: 16 min Patient Chief Complaint: "I don't feel well" Problems Identified/Issues Discussed: The pt is seen, chart reviewed, case discussed with staff. Support and psychoeducation given, CBT and GA used briefly No new symptoms reported, improving slowly and needs more time No SEs from medications, risks discussed. After care discussed - he is thinking about going to methadone maintenance (vs suboxone maint.) on Tuesday Librium taper started bc of benzo withdrawal Medication Change: Yes (detox changes daily) Medical Record Reviewed: Yes Mental Status Examination - Cognitive Function Orientation: Person, Place, Situation, Time Memory: Intact Attention: WNL Concentration: WNL Association: WNL Fund of Knowledge: WNL - Mood Mood: Depressed, Anxious - Affect Affect: Constricted - Speech Speech: Appropriate - Formal Thought Process Formal Thought Process: No Impairment - Suicidal Ideation Suicidal Ideation: No - Homicidal Ideation Homicidal Ideation: No Goal/Treatment Plan - Goal/Treatment Plan Need for Continued Stay: Discharge may exacerbated symptoms, Severe functional impairment Progress Toward Problem(s) and Goals/Treatment Plan: Nixon. depression: -Prozac 20 mg daily -Continue Seroquel 100 mg for irritability depression and insomnia -Psychoeducation and support -Use CBT -Attend groups and activities Opioid use disorder is-withdrawal: -Methadone detox by 20 mg and then go down 5 mg every day -When necessary medications -Attend groups and activities -Use GA for abstinence and long-term rehabilitation -Consider maintenance medications Alcohol/Benzo use disorder: -Monitor symptoms -Librium detox -Depakote -Gabapentin -Support psychoeducation and use GA -Attend groups and activities
[2018-02-09 06:32] VITALS: BP 122/83; PULSE 66; TEMP 97.7
--- NOTE | 2018-02-09 09:55 | PCM.PYCHDC ---
Mental Status Examination - Mental Status Examination Orientation: Person Discharge Summary - Discharge Note Consultations:: List each consultation separately and include: 1. Reason for request. 2. Findings. 3. Follow-up Summary of Hospital Course include:: 1. Description of specific treatment plan utilized for patients during their course of treatmen. 2. Summarize the time- course for resolution of acute symptoms and/or regressed behaviors. 3. Describe issues identified and worked on during hospitalization. 4. Describe medication utilized. 5. Describe medical problems identified and treated. 6. Reassessment of suicide risk Summary of Hospital Course: The patient is seen, chart reviewed, case discussed. He is well known to the sports writer from patient's previous admissions. This is a 53-year-old male, single, homeless, unemployed. He stays with friends or mother at times. He claims he was sad b/c his mother is very sick and may be dying and so he went back to his neighborhood and relapsed. He feels depressed and anxious b/c of his stressors and had suicidal thoughts and history of attempts in the past. He uses 15-20 bags IV, last use was yesterday. He denies using other drugs but he drinks about 10 cans of beer every day, but denies any withdrawal symptoms. He smokes MJ and uses Xanax and klonopin, mostly from a doctor but not always. No seizures but he has had withdrawal symptoms. He was also in [facility] and got suboxone but couldn't continue b/c of his [place] insurance, and then [facility] didn't take him b/c he was getting benzos from a regular dr, not psychiatrist. No psychosis or mark now. Psychiatric history: He was admitted more than 5 times. Alleged suicide attempt last year. He was on Seroquel, Remeron and Neurontin in the past. Family psych history: None known Medical history: Hepatitis C. He will go to [facility] and consider [facility]. - Diagnosis (1) Opioid use disorder, severe, dependence Current Visit: Yes Status: Acute (2) Depressive disorder Current Visit: No Status: Acute - Final Diagnosis (DSM 5) Condition upon Discharge: GOOD Disposition: HOME/ ROUTINE Follow-up Treatment Plan: Nixon. depression: -Prozac 20 mg daily -Continue Seroquel 100 mg for irritability depression and insomnia -Psychoeducation and support -Use CBT -Attend groups and activities Opioid use disorder is-withdrawal: -Methadone detox by 20 mg and then go down 5 mg every day -When necessary medications -Attend groups and activities -Use PA for abstinence and long-term rehabilitation -Consider maintenance medications Alcohol/Benzo use disorder: -Monitor symptoms -Librium detox -Depakote -Gabapentin -Support psychoeducation and use PA -Attend groups and activities Prescriptions/Medication Reconciliation: Divalproex [Depakote DR] 500 mg PO BID #60 tcp FLUoxetine [Prozac] 20 mg PO DAILY #30 cap Gabapentin [Neurontin] 400 mg PO TID #90 cap Mirtazapine [Remeron] 15 mg PO HS #30 tab QUEtiapine [SEROquel] 200 mg PO HS #30 tab
[2018-02-09] MEDS: Divalproex 500 mg DR Tab PO SCH (10:31)
[2018-02-10] MEDS ORDERED: Influenza Vaccine 60 MCG/0.5 ML SYR (3 yr & up) IM ONE (10:00)
[2018-02-10] MEDS ORDERED: Pneumococcal 23-Valent Vaccine IM ONE (10:00)
== END 2018-02-09 11:15 | disposition home or self-care (01) | DRG 744 ==
LOC: C.ER 16:54 → C.5E 19:31
PROC: HZ52ZZZ Individual Psychotherapy for Substance Abuse Treatment, Cognitive-Behavioral (ICD-10-PCS; principal; 2018-02-06)
PROC: HZ2ZZZZ Detoxification Services for Substance Abuse Treatment (ICD-10-PCS; 2018-02-06)
PROC: HZ59ZZZ Individual Psychotherapy for Substance Abuse Treatment, Supportive (ICD-10-PCS; 2018-02-06)
PROC: HZ56ZZZ Individual Psychotherapy for Substance Abuse Treatment, Psychoeducation (ICD-10-PCS; 2018-02-06)
PROC: HZ42ZZZ Group Counseling for Substance Abuse Treatment, Cognitive-Behavioral (ICD-10-PCS; 2018-02-06)
PROC: HZ46ZZZ Group Counseling for Substance Abuse Treatment, Psychoeducation (ICD-10-PCS; 2018-02-06)
PROC: GZHZZZZ Group Psychotherapy (ICD-10-PCS; 2018-02-06)
PROC: GZ58ZZZ Individual Psychotherapy, Cognitive-Behavioral (ICD-10-PCS; 2018-02-06)
PROC: GZ56ZZZ Individual Psychotherapy, Supportive (ICD-10-PCS; 2018-02-06)
DX: F11.23 Opioid dependence with withdrawal (principal); F33.2 Major depressive disorder, recurrent severe without psychotic features; B19.20 Unspecified viral hepatitis C without hepatic coma; F12.10 Cannabis abuse, uncomplicated; F13.230 Sedative, hypnotic or anxiolytic dependence with withdrawal, uncomplicated; F10.230 Alcohol dependence with withdrawal, uncomplicated; Y90.0 Blood alcohol level of less than 20 mg/100 ml; R45.851 Suicidal ideations; F60.9 Personality disorder, unspecified; Z59.0 Homelessness; G47.00 Insomnia, unspecified

== ENCOUNTER 2018-04-02 00:15 | Inpatient (IN) | payer MEDICAID, OTHER ==
[2018-04-02 00:16] VITALS: BMI 29.7
[2018-04-02 00:29] VITALS: O2SAT 97
--- NOTE | 2018-04-02 00:45 | C.PDOC ---
History Of Present Illness 53 year old male with PMhx of polysubstance abuse presents to the ED for evaluation. Patient reports he feels depressed with suicidal ideation. Patient denies HI, Hallucinations, injury, fall, trauma, CP, SOB. Time Seen by Provider: 04/02/18 00:43 Chief Complaint (Nursing): Psychiatric Evaluation History Per: Patient History/Exam Limitations: no limitations Onset/Duration Of Symptoms: Hrs Current Symptoms Are (Timing): Still Present Suicide/Self Injury Attempted (Context): None Associated Symptoms: Depression, Suicidal Thoughts. denies: Suicidal Plan Recent travel outside of the [place]: No Additional History Per: Patient Past Medical History Reviewed: Historical Data, Nursing Documentation, Vital Signs Vital Signs: Last Vital Signs Temp 98 F 04/02/18 00:22 Pulse 71 04/02/18 00:22 Resp 14 04/02/18 00:22 BP 100/68 04/02/18 00:22 Pulse Ox 97 04/02/18 00:22 - Medical History PMH: Anxiety, Bipolar Disorder, Depression, Hepatitis (Hep C) Denies: Diabetes, HIV, HTN, Chronic Kidney Disease, Seizures, Sexually Transmitted Disease Surgical History: No Surg Hx - [facility] Procedures DETOXIFICATION SERVICES FOR SUBSTANCE ABUSE TREATMENT (02/06/18) GROUP SECRETARIAL STENOGRAPHER FOR SUBSTANCE ABUSE TREATMENT, PSYCHOEDUCATION (02/06/18) GROUP SECRETARIAL STENOGRAPHER FOR SUBSTANCE ABUSE, COGNITIVE BEHAVIORAL (02/06/18) GROUP PSYCHOTHERAPY (02/06/18) INDIV SECRETARIAL STENOGRAPHER FOR SUBSTANCE ABUSE TREATMENT, CONTINUING CARE (03/31/15) INDIV PSYCHOTHERAPY FOR SUBSTANCE ABUSE TREATMENT, SUPPORT (02/06/18) INDIV PSYCHOTHERAPY FOR SUBSTANCE ABUSE, COGNITIV BEHAVIORAL (02/06/18) INDIV PSYCHOTHERAPY FOR SUBSTANCE ABUSE, PSYCHOEDUCATION (02/06/18) INDIVIDUAL PSYCHOTHERAPY, COGNITIVE-BEHAVIORAL (02/06/18) INDIVIDUAL PSYCHOTHERAPY, SUPPORTIVE (02/06/18) INJECT/INFUSE NEC (03/03/13) MEDICATION MANAGEMENT (10/25/17) Family History: States: Unknown Family Hx - Social History Hx Tobacco Use: Yes Hx Alcohol Use: Yes (occasionnally) Hx Substance Use: Yes - Immunization History Hx Tetanus Toxoid Vaccination: No Hx Influenza Vaccination: No Hx Pneumococcal Vaccination: No Review Of Systems Constitutional: Negative for: Fever, Chills Cardiovascular: Negative for: Chest Pain Respiratory: Negative for: Cough, Shortness of Breath Gastrointestinal: Negative for: Nausea, Vomiting, Abdominal Pain Skin: Negative for: Rash Psych: Positive for: Depression, Suicidal ideation Physical Exam - Physical Exam Appears: Non-toxic, No Acute Distress Skin: Normal Color, Warm, Dry Head: Atraumatic, Normacephalic Eye(s): bilateral: Normal Inspection Neck: Normal ROM, Supple Chest: Symmetrical Cardiovascular: Rhythm Regular Respiratory: Normal Breath Sounds, No Rales, No Rhonchi, No Wheezing Gastrointestinal/Abdominal: Soft, No Tenderness, No Guarding, No Rebound Extremity: Normal ROM, No Tenderness, No Swelling Neurological/Psych: Oriented x3, Normal Speech, Normal Cognition Gait: Steady ED Course And Treatment - Laboratory Results Result Diagrams: 04/02/18 01:01 04/02/18 01:01 O2 Sat by Pulse Oximetry: 97 (ON RA) Pulse Ox Interpretation: Normal Progress - Re-Evaluation Re-evaluation Note: 04/02/18 00:44 CLEARED FROM 1:1 S/P CRISIS EVAL. PT WELL KNOWN TO DR CHIN 04/02/18 02:57 MED CLEAR FOR PSYCH. CRISIS NOTIFIED - Data Reviewed Data Reviewed: Lab, Old records Medical Decision Making Medical Decision Making: Plan: * Labs * UA * Crisis eval * 1:1 Obs Disposition - Disposition Disposition: HOSPITALIZED Disposition Time: 05:20 Condition: SERIOUS Forms: [facility] (Latvian) - Clinical Impression Clinical Impression: Opiate dependence, Depression - Scribe Statement The provider has reviewed the documentation as recorded by the Scribe Tk Billy All medical record entries made by the Scribe were at my direction and personally dictated by me. I have reviewed the chart and agree that the record accurately reflects my personal performance of the history, physical exam, medical decision making, and the department course for this patient. I have also personally directed, reviewed, and agree with the discharge instructions and disposition.
[2018-04-02 01:08] LABS: BASO % 0.3 % (0.0-2.0); EOS # 0.2 K/uL (0.0-0.7); EOS % 2.5 % (0.0-4.0); HEMOGLOBIN 13.8 g/dL (12.0-18.0); LYMPH # 1.5 K/uL (1.0-4.3); LYMPH % 18.8 % (20.0-40.0); MEAN CELL VOLUME 88.8 fL (80.0-94.0); MEAN CORPUSCULAR HEMOGLOBIN 29.7 pg (27.0-31.0); MEAN CORPUSCULAR HGB CONC 33.4 g/dL (33.0-37.0); MEAN PLATELET VOLUME 9.3 fL (7.2-11.7); MONO # 0.7 K/uL (0.0-0.8); MONO % 8.3 % (0.0-10.0); NEUT # 5.6 K/uL (1.8-7.0); NEUT % 70.1 % (50.0-75.0); RBC 4.64 Mil/uL (4.40-5.90); RED CELL DISTRIBUTION WIDTH 15.1 % (11.5-14.5)
[2018-04-02 01:09] LABS: URINE BILIRUBIN NEGATIVE (NEGATIVE); URINE BLOOD NEGATIVE (NEGATIVE); URINE CLARITY Clear (Clear); URINE COLOR Yellow (YELLOW); URINE GLUCOSE (UA) NORMAL (Normal); URINE LEUKOCYTE ESTERASE NEG Leu/uL (Negative); URINE PROTEIN NEGATIVE (NEGATIVE); URINE UROBILINOGEN NORMAL mg/dL (0.2-1.0)
[2018-04-02 01:27] LABS: ALB/GLOB RATIO 1.3 (1.0-2.1); ALBUMIN 4.4 g/dL (3.5-5.0); ALT/SGPT 40 U/L (21-72); AST/SGOT 43 U/L (17-59); BLOOD UREA NITROGEN 19 mg/dL (9-20); CALCIUM 8.3 mg/dl (8.6-10.4); GFR NON-AFRICAN AMERICAN > 60
[2018-04-02 01:35] LABS: BARBITURATES, UR NEGATIVE (NEGATIVE); PHENCYCLIDINE, UR NEGATIVE (NEGATIVE)
[2018-04-02 02:14] LABS: BENZODIAZEPINES, UR POSITIVE (NEGATIVE); OPIATES, UR POSITIVE (NEGATIVE)
--- NOTE | 2018-04-02 08:28 | PCM.BM ---
<Madelaine Medina - Last Filed: 04/02/18 08:23> Treatment Plan Problems - Problems identified on initial assessmt Depression Date Initiated: 04/02/18 Time Initiated: 08:00 Assessment reference: NA Status: Active Treatment assets and liabiliti Patient Assests: adapts well, cooperative, educated, motivated, ADL independent, physically healthy, negotiates basic needs, cognitively intact, good interpersonal skills Patient Liabilities: live alone, financial problems, poor support system, relationship conflicts, substance abuse - Milieu Protocol Maintain good personal hygiene: daily Encourage regular showers, daily Remind patient to perform daily oral care, daily Assist patient to perform ADL's Maintain personal safety: every shift Educate patient to report safety concerns to staff, every shift Monitor environment for contraband/sharps Medication safety: Monitor for expected outcome, potential side effects: every shift, Assess barriers to learning: every shift, Assess readiness for medication education: every shift <Jarrod Nelson - Last Filed: 04/03/18 11:19> - Diagnosis (1) Bipolar affective, depress, severe Status: Acute Interventions: 04/03/18 11:20 * Assess/adjust medications daily and /or as needed * See patient on an individual basis 7x/week to assess level of manic behaviors and stability * Discuss risks, benefits, side effects and alternatives of medications * (2) Opiate dependence Status: Acute Interventions: 04/03/18 11:20 * Assess 7x/week regarding severity of withdrawal * Educate regarding risks, benefits, side effects and alternatives of medications * Use Motivational Interviewing for abstinence * Use CBT for relapse prevention * Medication management for withdrawal symptoms * Encourage medication assisted treatment * <Cecille Pearson - Last Filed: 04/03/18 13:13> Family Contact Family involvement: Family/SO is involved Family contact: Patient declines to allow family contact at present - Goals for Treatment Patient goals for treatment: "I need to leave now." Discharge/Continuing Care - Education Needs Education Needs: Patient Medication, Patient Coping Skills - Discharge Discharge Criteria: Tolerates medication w/o severe side effects, No longer exhibiting s/s of withdrawal, Reduction of target symptoms Discharge to:: Home, With Family - Treatment Team Participation Discussed with Family/SO: No Was Patient/Family/SO present at Treatment Team Meeting: No (Patient signed out AMA.)
[2018-04-02] MEDS ORDERED: Aluminum Hydroxide/Magnesium Hydroxide Susp (30 mL) PO PRN (13:00)
--- NOTE | 2018-04-02 13:10 | PCM.PSYCH ---
Initial Psychiatric Evaluation - Initial Psychiatric Evaluation Type of Admission: Voluntary Legal Status: Capacity Chief Complaint (in patient's own words): Relapsed on heroin and other drugs. History of Present Illness and Precipitating Events: Patient is a 53 years old single, unemployed, male with history of depression, heroin, cannabis and anxiolytic use was admitted due to worsening of depression and withdrawing from substance abuse. He feels depressed and anxious b/c of his stressors and had suicidal thoughts and history of attempts in the past. According to patient he stopped taking his medication after his last admission 2 months ago at [facility] and relapsed on drugs. Patient reported feeling depressed with suicidal ideations and plan to overdose. Patient has history of 10 previous suicidal attempts. He is feeling safe in the hospital. Patient denied any psychotic, manic or anxiety symptoms. Patient has history of more than 5 inpatient psychiatric admissions. His last admission was 2 months ago at [facility] Opioid: He uses 15-20 bags IV, last use was yesterday. He denies using other drugs but he drinks about 10 cans of beer every day, but denies any withdrawal symptoms. Cannabis: He uses cannabis every other day, 1 dime. Last used 2 days ago. Also uses Xanax and klonopin, mostly from a doctor but not always. No seizures but he has had withdrawal symptoms. He was also in [facility] and got suboxone but couldn't continue b/c of his [place] insurance, and then [facility] didn't take him b/c he was getting benzos from a regular dr, not psychiatrist. Patient was living with friends or with his mother. Current Medications: Active Medications Generic Name Dose Route Start Last Admin Trade Name Radha PRN Reason Stop Dose Admin Al Hydrox/Mg Hydrox/Simethicone 30 ml 04/02/18 13:00 Maalox 30 Ml PO TID PRN Indigestion / Heartburn Chlordiazepoxide 25 mg 04/02/18 13:07 Librium PO Q4H PRN Alcohol Withdrawal Clonidine HCl 0.1 mg 04/02/18 13:00 Catapres PO Q4 PRN COWS Score More or Equal to 5 Divalproex Sodium 500 mg 04/02/18 18:[address] PO BID PAULINA Fluoxetine HCl 20 mg 04/02/18 13:15 Prozac PO DAILY PAULINA Gabapentin 400 mg 04/02/18 14:00 Neurontin PO TID PAULINA Ibuprofen 400 mg 04/02/18 13:08 Motrin Tab PO Q6 PRN Pain, moderate (4-7) Influenza Virus Vaccine 60 mcg 04/05/18 10:00 Fluzone Quad [id number] IM 04/05/18 10:01 .ONCE ONE Loperamide HCl 2 mg 04/02/18 13:00 Imodium PO Q8 PRN Diarrhea Methadone HCl 20 mg 04/02/18 13:15 Methadone PO 04/02/18 13:16 ONCE ONE Methadone HCl 0 mg 04/03/18 10:00 Methadone PO 04/06/18 09:59 Q24H PAULINA Taper Mirtazapine 15 mg 04/02/18 22:00 Remeron PO HS [facility] Ondansetron HCl 4 mg 04/02/18 13:00 Zofran Tab PO Q8 PRN Nausea/Vomiting Pneumococcal Polyvalent Vaccine 0.5 ml 04/05/18 10:00 Pneumovax 23 Vaccine IM 04/05/18 10:01 .ONCE ONE Quetiapine Fumarate 200 mg 04/02/18 22:00 Seroquel PO HS [facility] Past Psychiatric History - Past Psychiatric History Previous Treatment History: Inpatient At [facility]: Mostly at [facility] History of Abuse: None reported History of ETOH/Drug Use: See HPI History of Family Illness: None reported Pertinent Medical Hx (Current Medical&Sleep Prob, Allergies): Allergies Allergy/AdvReac Type Severity Reaction Status Date / Time FISH AdvReac Mild nausea/vomi Verified 04/02/18 00:24 t/rash QUEtiapine [SEROquel] 200 mg PO HS #30 tab 02/09/18 Hepatitis C Review of Systems - Psychiatric Psychiatric: As Per HPI, Depression, Suicidal Ideation Mental Status Examination - Personal Presentation Personal Presentation: Looks stated age - Affect Affect: Depressed - Motor Activity Motor Activity: Calm - Reliability in Providing Information Reliability in Providing Information: Fair - Speech Speech: Organized - Mood Mood: Depressed - Formal Thought Process Formal Thought Process: No Impairment - Hallucinations/Delusions Hallucinations: Other (None report) Delusions: Other - Obsessions/Compulsions Obsessions: None Compulsions: None - Cognitive Functions Orientation: Person, Place, Situation, Time Sensorium: Alert Attention/Concentration: Attentive Abstract Thinking: [place] Estimate of Intelligence: Average Judgement: Intact, as evidence by: Insight regarding need for hospitalization Memory: Recent intact, as evidence by: Ability to recall events of the day, Remote intact, as evidenced by: Ability to recall historical events - Risk Risk: Withdrawal, Diminished functioning - Strength & Assets Inventory Strength & Assets Inventory: Family support, Cooperative - Limitations Limitations: Other DSM 5 DX - DSM 5 DSM 5 Diagnosis: Major depressive disorder recurrent severe without psychotic features. Opioid use disorder severe. Cannabis use disorder severe Cocaine use disorder - Recommended/Plan of Treatment Treatment Recommendations and Plan of Treatment: Patient education. Supportive therapy. CBT for relapse prevention. [place] for abstinence. We will start methadone taper for opioid withdrawal symptoms. We will start his discharge medications including Depakote, Prozac, gabapentin, mirtazapine and Seroquel. Other as needed medications. Projected ELOS: 8-10 days - Smoking Cessation Smoking Cessation Initiated: No Reason for not providing: Patient does not smoke cigarettes.
[2018-04-02 15:55] VITALS: PULSE 73
[2018-04-02] MEDS: Divalproex 500 mg DR Tab PO SCH (17:14)
[2018-04-03 06:24] VITALS: BP 122/83; RESP 18; TEMP 97.2
--- NOTE | 2018-04-03 10:04 | PCM.PYCHPN ---
Psychiatric Progress Note - Psychiatric Progress Note Patient seen today, length of contact: 15 min Medication Change: Yes Medical Record Reviewed: Yes Mental Status Examination - Cognitive Function Orientation: Person, Place, Situation, Time - Mood Mood: Depressed - Affect Affect: Depressed - Formal Thought Process Formal Thought Process: No Impairment - Homicidal Ideation Homicidal Ideation: No
[2018-04-03] MEDS: Divalproex 500 mg DR Tab PO SCH (10:32)
--- NOTE | 2018-04-03 11:18 | PCM.PYCHDC ---
Mental Status Examination - Mental Status Examination Orientation: Person, Place, Situation, Time Memory: Intact Mood: Neutral Affect: Constricted Speech: Soft Attention: WNL Concentration: WNL Association: WNL Fund of Knowledge: WNL Formal Thought Process: No Impairment Description of patient's judgement and insight: good, fair Psychotic Thoughts and Behaviors: denies any AVH Suicidal Ideation: No Current Homicidal Ideation?: No Discharge Summary - Discharge Note Reason for Hospitalization: Patient is a 53 years old single, unemployed, male with history of depression, heroin, cannabis and anxiolytic use was admitted due to worsening of depression and withdrawing from substance abuse. He feels depressed and anxious b/c of his stressors and had suicidal thoughts and history of attempts in the past. According to patient he stopped taking his medication after his last admission 2 months ago at [facility] and relapsed on drugs. Patient reported feeling depressed with suicidal ideations and plan to overdose. Patient has history of 10 previous suicidal attempts. He is feeling safe in the hospital. Patient denied any psychotic, manic or anxiety symptoms. Patient has history of more than 5 inpatient psychiatric admissions. His last admission was 2 months ago at [facility] Opioid: He uses 15-20 bags IV, last use was yesterday. He denies using other drugs but he drinks about 10 cans of beer every day, but denies any withdrawal symptoms. Cannabis: He uses cannabis every other day, 1 dime. Last used 2 days ago. Also uses Xanax and klonopin, mostly from a doctor but not always. No seizures but he has had withdrawal symptoms. He was also in [facility] and got suboxone but couldn't continue b/c of his [place] insurance, and then [facility] didn't take him b/c he was getting benzos from a regular dr, not psychiatrist. Patient was living with friends or with his mother. Consultations:: List each consultation separately and include: 1. Reason for request. 2. Findings. 3. Follow-up Summary of Hospital Course include:: 1. Description of specific treatment plan utilized for patients during their course of treatmen. 2. Summarize the time- course for resolution of acute symptoms and/or regressed behaviors. 3. Describe issues identified and worked on during hospitalization. 4. Describe medication utilized. 5. Describe medical problems identified and treated. 6. Reassessment of suicide risk - Final Diagnosis (DSM 5) Condition upon Discharge: SERIOUS DSM 5: Major depressive disorder recurrent severe without psychotic features. Opioid use disorder severe. Cannabis use disorder severe Cocaine use disorder Disposition: AGAINST MEDICAL ADVICE
[2018-04-05] MEDS ORDERED: Influenza Vaccine 60 MCG/0.5 ML SYR (3 yr & up) IM ONE (10:00)
[2018-04-05] MEDS ORDERED: Pneumococcal 23-Valent Vaccine IM ONE (10:00)
== END 2018-04-03 13:21 | disposition left against medical advice (07) | DRG 430 ==
LOC: C.ER 00:15 → C.5E 05:21
PROC: GZ3ZZZZ Medication Management (ICD-10-PCS; principal; 2018-04-02)
PROC: HZ2ZZZZ Detoxification Services for Substance Abuse Treatment (ICD-10-PCS; 2018-04-02)
PROC: HZ56ZZZ Individual Psychotherapy for Substance Abuse Treatment, Psychoeducation (ICD-10-PCS; 2018-04-02)
PROC: GZHZZZZ Group Psychotherapy (ICD-10-PCS; 2018-04-02)
PROC: GZ56ZZZ Individual Psychotherapy, Supportive (ICD-10-PCS; 2018-04-02)
DX: F33.2 Major depressive disorder, recurrent severe without psychotic features (principal); F11.23 Opioid dependence with withdrawal; F14.20 Cocaine dependence, uncomplicated; F13.10 Sedative, hypnotic or anxiolytic abuse, uncomplicated; F12.20 Cannabis dependence, uncomplicated; F31.9 Bipolar disorder, unspecified; R45.851 Suicidal ideations; Z87.891 Personal history of nicotine dependence

== ENCOUNTER 2018-05-06 21:12 | Emergency (ER) | payer MEDICAID, OTHER ==
[2018-05-06 21:12] VITALS: BMI 29.7
[2018-05-06 22:05] LABS: BASO % 0.3 % (0.0-2.0); EOS # 0.2 K/uL (0.0-0.7); EOS % 4.2 % (0.0-4.0); HEMOGLOBIN 14.3 g/dL (12.0-18.0); LYMPH # 1.4 K/uL (1.0-4.3); LYMPH % 24.7 % (20.0-40.0); MEAN CELL VOLUME 90.2 fL (80.0-94.0); MEAN CORPUSCULAR HEMOGLOBIN 30.8 pg (27.0-31.0); MEAN CORPUSCULAR HGB CONC 34.1 g/dL (33.0-37.0); MEAN PLATELET VOLUME 9.4 fL (7.2-11.7); MONO # 0.7 K/uL (0.0-0.8); MONO % 12.8 % (0.0-10.0); NEUT # 3.3 K/uL (1.8-7.0); RBC 4.64 Mil/uL (4.40-5.90); RED CELL DISTRIBUTION WIDTH 14.2 % (11.5-14.5); WHITE BLOOD COUNT 5.6 K/uL (4.8-10.8)
[2018-05-06 22:08] LABS: URINE BACTERIA RARE (<OCC); URINE BILIRUBIN NEGATIVE (NEGATIVE); URINE BLOOD NEGATIVE (NEGATIVE); URINE CLARITY Hazy (Clear); URINE COLOR Amber (YELLOW); URINE GLUCOSE (UA) NORMAL (Normal); URINE LEUKOCYTE ESTERASE NEG Leu/uL (Negative); URINE PROTEIN 1+ mg/dL (NEGATIVE); URINE UROBILINOGEN NORMAL mg/dL (0.2-1.0)
[2018-05-06 22:18] LABS: ACETAMINOPHEN < 10.0 ug/mL (10.0-30.0); SALICYLATE < 1.0 mg/dL 1
[2018-05-06 22:19] LABS: ALB/GLOB RATIO 1.4 (1.0-2.1); ALBUMIN 4.4 g/dL (3.5-5.0); ALT/SGPT 66 U/L (21-72); AST/SGOT 63 U/L (17-59); BLOOD UREA NITROGEN 21 mg/dL (9-20); GFR NON-AFRICAN AMERICAN > 60
[2018-05-06 22:24] LABS: BARBITURATES, UR NEGATIVE (NEGATIVE); BENZODIAZEPINES, UR POSITIVE (NEGATIVE); OPIATES, UR POSITIVE (NEGATIVE); PHENCYCLIDINE, UR NEGATIVE (NEGATIVE)
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
[2018-05-07 07:29] VITALS: BP 96/60; PULSE 67; RESP 18; TEMP 98.1; O2SAT 98
--- NOTE | 2018-05-07 09:02 | CT ---
Date of service: 05/07/2018 PROCEDURE: CT MAXILLOFACIAL BONES WITHOUT CONTRAST HISTORY: fall r side COMPARISON: None available. TECHNIQUE: Contiguous axial CT images of the maxillofacial bones were obtained. Coronal and sagittal reformats were generated. Radiation dose: Total exam DLP = 736.11 mGy-cm. This CT exam was performed using one or more of the following dose reduction techniques: Automated exposure control, adjustment of the mA and/or kV according to patient size, and/or use of iterative reconstruction technique. FINDINGS: NASAL BONES: No acute fracture. ORBITS: The globes are symmetric. No acute injury. No acute fracture. PARANASAL SINUSES/ MASTOIDS: There is mild polypoid mucosal thickening in the maxillary, sphenoid and ethmoid air cells, worse in the right maxillary sinus with small retention cysts/polyps.Clear. MAXILLA: No acute maxillofacial fracture. MANDIBLE/ TEMPOROMANDIBULAR JOINTS: No acute fracture or dislocation. SKULL BASE: Unremarkable. TEMPORAL BONES: Middle ears and mastoid grossly unremarkable. OTHER FINDINGS: None. OTHER: There is mild right facial soft tissue swelling and contusion. IMPRESSION: No acute orbital or maxillofacial fracture. Mild right facial soft tissue swelling and contusion. A preliminary report was provided by [facility].
--- NOTE | 2018-05-08 21:27 | CARD ---
APPROVED REPORT Date of service: 05/07/2018 EKG Measurement Heart [id number] <Conclusion> Normal sinus rhythm Normal ECG
== END 2018-05-07 07:45 | disposition designated cancer center or children's hospital (05) ==
LOC: C.ER 21:12
DX: F32.9 Major depressive disorder, single episode, unspecified (principal); F11.10 Opioid abuse, uncomplicated

== ENCOUNTER 2018-05-12 21:19 | Inpatient (IN) | payer OTHER ==
[2018-05-12 21:19] VITALS: BMI 29.7
[2018-05-12 22:17] LABS: URINE BILIRUBIN NEGATIVE (NEGATIVE); URINE BLOOD NEGATIVE (NEGATIVE); URINE CLARITY Clear (Clear); URINE COLOR Colorless (YELLOW); URINE GLUCOSE (UA) NORMAL (Normal); URINE LEUKOCYTE ESTERASE NEG Leu/uL (Negative); URINE PROTEIN NEGATIVE (NEGATIVE); URINE UROBILINOGEN NORMAL mg/dL (0.2-1.0)
[2018-05-12 22:20] LABS: BASO % 0.5 % (0.0-2.0); EOS # 0.2 K/uL (0.0-0.7); EOS % 2.7 % (0.0-4.0); HEMOGLOBIN 14.1 g/dL (12.0-18.0); LYMPH % 29.1 % (20.0-40.0); MEAN CELL VOLUME 89.2 fL (80.0-94.0); MEAN CORPUSCULAR HEMOGLOBIN 30.3 pg (27.0-31.0); MEAN CORPUSCULAR HGB CONC 33.9 g/dL (33.0-37.0); MEAN PLATELET VOLUME 8.1 fL (7.2-11.7); MONO # 0.7 K/uL (0.0-0.8); MONO % 9.6 % (0.0-10.0); NEUT % 58.1 % (50.0-75.0); NRBC % 0.1 % (0.0-2.0); RBC 4.65 Mil/uL (4.40-5.90); WHITE BLOOD COUNT 6.9 K/uL (4.8-10.8)
[2018-05-12 22:27] LABS: ALB/GLOB RATIO 1.4 (1.0-2.1); ALBUMIN 4.3 g/dL (3.5-5.0); ALT/SGPT 47 U/L (21-72); AST/SGOT 38 U/L (17-59); BLOOD UREA NITROGEN 13 mg/dL (9-20); CALCIUM 8.9 mg/dl (8.6-10.4); GFR NON-AFRICAN AMERICAN > 60
[2018-05-12 22:30] LABS: BARBITURATES, UR NEGATIVE (NEGATIVE); BENZODIAZEPINES, UR NEGATIVE (NEGATIVE); PHENCYCLIDINE, UR NEGATIVE (NEGATIVE)
[2018-05-12 22:35] LABS: OPIATES, UR POSITIVE (NEGATIVE)
--- NOTE | 2018-05-12 22:53 | C.PDOC ---
History Of Present Illness 53 year old male presents to the ER stating he is depressed and wants to overdose. Denies any other complaints. <Luiz Ramey - Last Filed: 05/12/18 22:53> History Per: Patient History/Exam Limitations: no limitations Onset/Duration Of Symptoms: Days Current Symptoms Are (Timing): Still Present Suicide/Self Injury Attempted (Context): None Associated Symptoms: Depression, Suicidal Thoughts, Suicidal Plan Involuntary Hold By: None Recent travel outside of the [place]: No <Luiz Ramey - Last Filed: 05/12/18 22:53> <Sukhwinder Vickers - Last Filed: 05/13/18 00:33> Time Seen by Provider: 05/12/18 22:09 Chief Complaint (Nursing): Psychiatric Evaluation Past Medical History Reviewed: Historical Data, Nursing Documentation, Vital Signs Vital Signs: Last Vital Signs Temp 98.3 F 05/12/18 21:33 Pulse 79 05/12/18 21:33 Resp 20 05/12/18 21:33 BP 130/80 05/12/18 21:33 Pulse Ox 98 05/12/18 21:33 - Medical History PMH: Anxiety, Bipolar Disorder, Depression, Hepatitis (Hep C) Denies: Diabetes, HIV, HTN, Chronic Kidney Disease, Seizures, Sexually Transmitted Disease - [facility] Procedures DETOXIFICATION SERVICES FOR SUBSTANCE ABUSE TREATMENT (04/02/18) GROUP TEST DECK SUPERVISOR FOR SUBSTANCE ABUSE TREATMENT, PSYCHOEDUCATION (02/06/18) GROUP TEST DECK SUPERVISOR FOR SUBSTANCE ABUSE, COGNITIVE BEHAVIORAL (02/06/18) GROUP PSYCHOTHERAPY (04/02/18) INDIV TEST DECK SUPERVISOR FOR SUBSTANCE ABUSE TREATMENT, CONTINUING CARE (03/31/15) INDIV PSYCHOTHERAPY FOR SUBSTANCE ABUSE TREATMENT, SUPPORT (02/06/18) INDIV PSYCHOTHERAPY FOR SUBSTANCE ABUSE, COGNITIV BEHAVIORAL (02/06/18) INDIV PSYCHOTHERAPY FOR SUBSTANCE ABUSE, PSYCHOEDUCATION (04/02/18) INDIVIDUAL PSYCHOTHERAPY, COGNITIVE-BEHAVIORAL (02/06/18) INDIVIDUAL PSYCHOTHERAPY, SUPPORTIVE (04/02/18) INJECT/INFUSE NEC (03/03/13) MEDICATION MANAGEMENT (04/02/18) Family History: States: Unknown Family Hx - Social History Hx Tobacco Use: Yes Hx Alcohol Use: Yes Hx Substance Use: Yes (TODAY) - Immunization History Hx Tetanus Toxoid Vaccination: No Hx Influenza Vaccination: No Hx Pneumococcal Vaccination: No <Luiz Ramey - Last Filed: 05/12/18 22:53> Vital Signs: Last Vital Signs Temp 98.3 F 05/12/18 21:33 Pulse 79 05/12/18 21:33 Resp 20 05/12/18 21:33 BP 130/80 05/12/18 21:33 Pulse Ox 98 05/12/18 22:56 - [facility] Procedures DETOXIFICATION SERVICES FOR SUBSTANCE ABUSE TREATMENT (04/02/18) GROUP TEST DECK SUPERVISOR FOR SUBSTANCE ABUSE TREATMENT, PSYCHOEDUCATION (02/06/18) GROUP TEST DECK SUPERVISOR FOR SUBSTANCE ABUSE, COGNITIVE BEHAVIORAL (02/06/18) GROUP PSYCHOTHERAPY (04/02/18) INDIV TEST DECK SUPERVISOR FOR SUBSTANCE ABUSE TREATMENT, CONTINUING CARE (03/31/15) INDIV PSYCHOTHERAPY FOR SUBSTANCE ABUSE TREATMENT, SUPPORT (02/06/18) INDIV PSYCHOTHERAPY FOR SUBSTANCE ABUSE, COGNITIV BEHAVIORAL (02/06/18) INDIV PSYCHOTHERAPY FOR SUBSTANCE ABUSE, PSYCHOEDUCATION (04/02/18) INDIVIDUAL PSYCHOTHERAPY, COGNITIVE-BEHAVIORAL (02/06/18) INDIVIDUAL PSYCHOTHERAPY, SUPPORTIVE (04/02/18) INJECT/INFUSE NEC (03/03/13) MEDICATION MANAGEMENT (04/02/18) <Sukhwinder Vickers - Last Filed: 05/13/18 00:33> Review Of Systems Constitutional: Negative for: Fever, Chills Cardiovascular: Negative for: Chest Pain, Palpitations Respiratory: Negative for: Cough, Shortness of Breath Gastrointestinal: Negative for: Nausea, Vomiting Neurological: Negative for: Weakness, Numbness <Luiz Ramey - Last Filed: 05/12/18 22:53> Physical Exam - Physical Exam Appears: Non-toxic, No Acute Distress Skin: Normal Color, Warm, Dry Head: Atraumatic, Normacephalic Eye(s): bilateral: Normal Inspection Oral Mucosa: Moist Neck: Normal, Supple Chest: Symmetrical, No Tenderness Cardiovascular: Rhythm Regular Respiratory: Normal Breath Sounds, No Rales, No Rhonchi, No Wheezing Gastrointestinal/Abdominal: Soft, No Tenderness Extremity: Normal ROM (x4) Neurological/Psych: Oriented x3, Normal Speech <Luiz Ramey - Last Filed: 05/12/18 22:53> ED Course And Treatment - Laboratory Results Result Diagrams: 05/12/18 22:10 05/12/18 22:10 Lab Results: Total Bilirubin 0.4 mg/dL (0.2-1.3) 05/12/18 22:10 AST 38 U/L (17-59) 05/12/18 22:10 ALT 47 U/L (21-72) 05/12/18 22:10 Alkaline Phosphatase 54 U/L (38-126) 05/12/18 22:10 Total Protein 7.4 g/dL (6.3-8.3) 05/12/18 22:10 Albumin 4.3 g/dL (3.5-5.0) 05/12/18 22:10 Globulin 3.1 gm/dL (2.2-3.9) 05/12/18 22:10 Albumin/Globulin Ratio 1.4 (1.0-2.1) 05/12/18 22:10 Urine Color Colorless (YELLOW) 05/12/18 22:10 Urine Clarity Clear (Clear) 05/12/18 22:10 Urine pH 6.0 (5.0-8.0) 05/12/18 22:10 Ur Specific [place] 1.001 (1.003-1.030) L 05/12/18 22:10 Urine Protein Negative mg/dL (NEGATIVE) 05/12/18 22:10 Urine Glucose (UA) Normal mg/dL (Normal) 05/12/18 22:10 Urine Ketones Negative mg/dL (NEGATIVE) 05/12/18 22:10 Urine Blood Negative (NEGATIVE) 05/12/18 22:10 Urine Nitrate Negative (NEGATIVE) 05/12/18 22:10 Urine Bilirubin Negative (NEGATIVE) 05/12/18 22:10 Urine Urobilinogen Normal mg/dL (0.2-1.0) 05/12/18 22:10 Ur Leukocyte Esterase Neg Angel/uL (Negative) 05/12/18 22:10 O2 Sat by Pulse Oximetry: 98 (Room air) Pulse Ox Interpretation: Normal <Luiz Ramey - Last Filed: 05/12/18 22:53> - Laboratory Results Result Diagrams: 05/12/18 22:10 05/12/18 22:10 Lab Results: Total Bilirubin 0.4 mg/dL (0.2-1.3) 05/12/18 22:10 AST 38 U/L (17-59) 05/12/18 22:10 ALT 47 U/L (21-72) 05/12/18 22:10 Alkaline Phosphatase 54 U/L (38-126) 05/12/18 22:10 Total Protein 7.4 g/dL (6.3-8.3) 05/12/18 22:10 Albumin 4.3 g/dL (3.5-5.0) 05/12/18 22:10 Globulin 3.1 gm/dL (2.2-3.9) 05/12/18 22:10 Albumin/Globulin Ratio 1.4 (1.0-2.1) 05/12/18 22:10 Urine Color Colorless (YELLOW) 05/12/18 22:10 Urine Clarity Clear (Clear) 05/12/18 22:10 Urine pH 6.0 (5.0-8.0) 05/12/18 22:10 Ur Specific [place] 1.001 (1.003-1.030) L 05/12/18 22:10 Urine Protein Negative mg/dL (NEGATIVE) 05/12/18 22:10 Urine Glucose (UA) Normal mg/dL (Normal) 05/12/18 22:10 Urine Ketones Negative mg/dL (NEGATIVE) 05/12/18 22:10 Urine Blood Negative (NEGATIVE) 05/12/18 22:10 Urine Nitrate Negative (NEGATIVE) 05/12/18 22:10 Urine Bilirubin Negative (NEGATIVE) 05/12/18 22:10 Urine Urobilinogen Normal mg/dL (0.2-1.0) 05/12/18 22:10 Ur Leukocyte Esterase Neg Angel/uL (Negative) 05/12/18 22:10 <Sukhwinder Vickers - Last Filed: 05/13/18 00:33> Medical Decision Making Medical Decision Making: Blood work and urinalysis ordered. Patient medically cleared. <Luiz Ramey - Last Filed: 05/12/18 22:53> Disposition <Luiz Ramey - Last Filed: 05/12/18 22:53> Discussed With : Jarrod Nelson Doctor Will See Patient In The: Hospital Counseled Patient/Family Regarding: Diagnosis - Disposition Disposition Time: 00:32 <Sukhwinder Vickers Last Filed: 05/13/18 00:33> - Disposition Referrals: [facility] [Outside] Disposition: HOSPITALIZED Condition: STABLE Additional Instructions: return to any er with worsneing symptoms or concerns. Forms: [facility] (Polish) - Clinical Impression Clinical Impression: Depression - Scribe Statement The provider has reviewed the documentation as recorded by the Scribe Reid Ontiveros All medical record entries made by the Scribe were at my direction and personally dictated by me. I have reviewed the chart and agree that the record accurately reflects my personal performance of the history, physical exam, medical decision making, and the department course for this patient. I have also personally directed, reviewed, and agree with the discharge instructions and disposition. <Luiz Ramey - Last Filed: 05/12/18 22:53>
[2018-05-12 23:18] LABS: ACETAMINOPHEN < 10.0 ug/mL (10.0-30.0); SALICYLATE < 1.0 mg/dL 1
--- NOTE | 2018-05-13 03:05 | PCM.BM ---
Treatment Plan Problems - Problems identified on initial assessmt Medication Nonadherence Date Initiated: 05/13/18 Time Initiated: :45 Assessment reference: NA Status: Active Altered Sleep Patterns Date Initiated: 05/13/18 Time Initiated: 45 Assessment reference: NA Status: Active Treatment assets and liabiliti Patient Assests: adapts well, cooperative, educated, motivated, ADL independent, physically healthy, good support system, negotiates basic needs, cognitively intact, good interpersonal skills Patient Liabilities: substance abuse - Milieu Protocol Maintain good personal hygiene: daily Encourage regular showers, daily Remind patient to perform daily oral care, daily Assist patient to perform ADL's Conduct patient checks and document Observation sheet: Q15 minutes Maintain personal safety: every shift Educate patient to report safety concerns to staff, every shift Monitor environment for contraband/sharps Medication safety: Monitor for expected outcome, potential side effects: every shift, Assess barriers to learning: every shift, Assess readiness for medication education: every shift
[2018-05-13 06:39] VITALS: RESP 18
--- NOTE | 2018-05-13 08:03 | PCM.PSYCH ---
Initial Psychiatric Evaluation - Initial Psychiatric Evaluation Type of Admission: Voluntary Legal Status: Capacity Chief Complaint (in patient's own words): I was feeling depressed and suicidal History of Present Illness and Precipitating Events: Patient is s 53-year-old male presenting to the ED for depression and suicidal ideation. Patient reports today he intentionally overdosed on 10 bags of heroin intravenously. Daily and recreationally patient intravenously uses 10 bags of heroin. He reports using the past 1-2 days after being sober for 1 week. Patient reports hes been using a 6 pack of beer and a little Vodka daily the past 2 days. Patient reports several stressors that include no emotional support from adult children, a sickly mother, dependent on his mothers overall support, substance use. Patient reports feeling helpless, hopeless and worthless. He reports hes been confined to his rooms for days, feels depressed and is disorganized. Patient reports a history of overdosing 2x. He is prescribed Seroquel, Neurontin, and Klonopin but reports non-compliance the past two days because the medication ran out. Patient is requesting admission for psychiatric stabilization, medication management, and then to inpatient substance abuse rehab. Patient denies psychosis and homicidal ideation. Current Medications: Active Medications Generic Name Dose Route Start Last Admin Trade Name Freq PRN Reason Stop Dose Admin Chlordiazepoxide 25 mg 05/13/18 02:19 Librium PO Q4 PRN Symptoms of alcohol withdrawl Past Psychiatric History - Past Psychiatric History Previous Treatment History: Inpatient Pertinent Medical Hx (Current Medical&Sleep Prob, Allergies): Allergies Allergy/AdvReac Type Severity Reaction Status Date / Time FISH AdvReac Mild nausea/vomi Verified 05/12/18 21:41 t/rash No Known Home Med 05/12/18 Review of Systems - Review of Systems All systems: reviewed and no additional remarkable complaints except - Psychiatric Psychiatric: Anxiety, Irritability, Mood Swings, Suicidal Ideation Mental Status Examination - Personal Presentation Personal Presentation: Looks stated age - Affect Affect: Constricted, Depressed - Motor Activity Motor Activity: Calm - Reliability in Providing Information Reliability in Providing Information: Poor, due to altered mood - Speech Speech: Organized - Mood Mood: Depressed, Anxious - Formal Thought Process Formal Thought Process: No Impairment - Obsessions/Compulsions Obsessions: No Compulsions: No - Cognitive Functions Orientation: Person, Place, Situation, Time Sensorium: Alert Attention/Concentration: Attentive Abstract Thinking: [place] Estimate of Intelligence: Below average Judgement: Imparied, as evidence by: Poor judgement, Imparied, as evidence by: Aniya ack of insight into illness - Risk Risk: Suicidal, Withdrawal, Diminished functioning - Limitations Limitations: Living alone DSM 5 DX - DSM 5 DSM 5 Diagnosis: Bipolar disorder mixed severe without psychotic features Alcohol use disorder severe Alcohol withdrawal Opioid use disorder severe Opioid withdrawal - Recommended/Plan of Treatment Treatment Recommendations and Plan of Treatment: Bipolar disorder mixed severe without psychotic features Alcohol use disorder severe Alcohol withdrawal Opioid use disorder severe Opioid withdrawal CBT Psychoeducation and supportive therapy Group therapy Librium taper Metahdone taper Neurontin 300 mg PO TID Trazodone 50 mg
[2018-05-13] MEDS ORDERED: Aluminum Hydroxide/Magnesium Hydroxide Susp (30 mL) PO PRN (08:05)
[2018-05-13] MEDS: Multiple Vitamins Tab PO SCH (10:21)
[2018-05-14 06:20] VITALS: BP 97/66; PULSE 57; TEMP 97.9; O2SAT 96
[2018-05-14] MEDS: Multiple Vitamins Tab PO SCH (10:39)
--- NOTE | 2018-05-14 13:36 | PCM.PYCHDC ---
Mental Status Examination - Mental Status Examination Orientation: Person, Place, Situation, Time Memory: Intact Mood: Neutral Affect: Constricted Speech: Soft Attention: WNL Concentration: WNL Association: WNL Fund of Knowledge: WNL Formal Thought Process: No Impairment Description of patient's judgement and insight: partially impaired Psychotic Thoughts and Behaviors: denies any AVH Suicidal Ideation: No Current Homicidal Ideation?: No Discharge Summary - Discharge Note Consultations:: List each consultation separately and include: 1. Reason for request. 2. Findings. 3. Follow-up Summary of Hospital Course include:: 1. Description of specific treatment plan utilized for patients during their course of treatmen. 2. Summarize the time- course for resolution of acute symptoms and/or regressed behaviors. 3. Describe issues identified and worked on during hospitalization. 4. Describe medication utilized. 5. Describe medical problems identified and treated. 6. Reassessment of suicide risk Summary of Hospital Course: Today patient improved reports improvement in his mood and withdrawal symptoms. He mentioned that he wants to go to rehab tomorrow and would like to sign AMA. Patient was counseled but he became irritable and agitated and demanded to sign AMA. He denies any feelings of hopelessness or helplessness. He denies any suicidal ideation or any homicidal ideation. He denies any auditory hallucinations or any paranoia. - Final Diagnosis (DSM 5) Condition upon Discharge: STABLE DSM 5: Bipolar disorder mixed severe without psychotic features Alcohol use disorder severe Alcohol withdrawal Opioid use disorder severe Opioid withdrawal Disposition: AGAINST MEDICAL ADVICE Follow-up Treatment Plan: Librium taper Metahdone taper Neurontin 300 mg PO TID Trazodone 50 mg
== END 2018-05-14 14:43 | disposition left against medical advice (07) | DRG 430 ==
LOC: C.ER 21:19 → C.5E 05-13 00:33
PROVIDERS: ADMIT Psychiatry & Neurology Psychiatry; ATTEND Psychiatry & Neurology Psychiatry
DX: F31.63 Bipolar disorder, current episode mixed, severe, without psychotic features (principal); F10.239 Alcohol dependence with withdrawal, unspecified; F11.23 Opioid dependence with withdrawal

== ENCOUNTER 2018-06-18 20:50 | Inpatient (IN) | payer OTHER ==
[2018-06-18 20:51] VITALS: BMI 29.7
--- NOTE | 2018-06-18 21:12 | C.PDOC ---
History Of Present Illness 53 year old male presents to the ED for evaluation of depression and SI with a plan. Patient reports that for the past few days he has been feeling depressed with SI, patient states he was thinking about overdosing and today jumping in front of a car. Patient denies HI, hallucinations, CP, SOB, injury, fall, trauma. Chief Complaint (Nursing): Psychiatric Evaluation History Per: Patient History/Exam Limitations: no limitations Onset/Duration Of Symptoms: Days Current Symptoms Are (Timing): Still Present Suicide/Self Injury Attempted (Context): Ingestion Modifying Factor(s): None Associated Symptoms: Depression, Suicidal Thoughts, Suicidal Plan Recent travel outside of the [place]: No Additional History Per: Patient Past Medical History Reviewed: Historical Data, Nursing Documentation, Vital Signs Vital Signs: Last Vital Signs Temp 97.6 F 06/18/18 21:01 Pulse 99 H 06/18/18 21:01 Resp 20 06/18/18 21:01 BP 122/83 06/18/18 21:01 Pulse Ox 94 L 06/18/18 21:01 - Medical History PMH: Anxiety, Bipolar Disorder, Depression, Hepatitis (Hep C) Denies: Diabetes, HIV, HTN, Chronic Kidney Disease, Seizures, Sexually Transmitted Disease Surgical History: No Surg Hx - [facility] DETOXIFICATION SERVICES FOR SUBSTANCE ABUSE TREATMENT (04/02/18) GROUP SOLAR PV INSTALLER FOR SUBSTANCE ABUSE TREATMENT, PSYCHOEDUCATION (02/06/18) GROUP SOLAR PV INSTALLER FOR SUBSTANCE ABUSE, COGNITIVE BEHAVIORAL (02/06/18) GROUP PSYCHOTHERAPY (04/02/18) INDIV SOLAR PV INSTALLER FOR SUBSTANCE ABUSE TREATMENT, CONTINUING CARE (03/31/15) INDIV PSYCHOTHERAPY FOR SUBSTANCE ABUSE TREATMENT, SUPPORT (02/06/18) INDIV PSYCHOTHERAPY FOR SUBSTANCE ABUSE, COGNITIV BEHAVIORAL (02/06/18) INDIV PSYCHOTHERAPY FOR SUBSTANCE ABUSE, PSYCHOEDUCATION (04/02/18) INDIVIDUAL PSYCHOTHERAPY, COGNITIVE-BEHAVIORAL (02/06/18) INDIVIDUAL PSYCHOTHERAPY, SUPPORTIVE (04/02/18) INJECT/INFUSE NEC (03/03/13) MEDICATION MANAGEMENT (04/02/18) Family History: States: Unknown Family Hx - Social History Hx Tobacco Use: Yes Hx Alcohol Use: Yes Hx Substance Use: Yes - Immunization History Hx Tetanus Toxoid Vaccination: No Hx Influenza Vaccination: No Hx Pneumococcal Vaccination: No Review Of Systems Constitutional: Negative for: Fever, Chills Eyes: Negative for: Vision Change Cardiovascular: Negative for: Chest Pain, Palpitations Respiratory: Negative for: Cough, Shortness of Breath Gastrointestinal: Negative for: Nausea, Vomiting, Abdominal Pain Psych: Positive for: Depression, Suicidal ideation Physical Exam - Physical Exam Appears: Non-toxic, No Acute Distress Skin: Normal Color, Warm, Dry Head: Atraumatic, Normacephalic Eye(s): bilateral: Normal Inspection Neck: Normal ROM, Supple Chest: Symmetrical Cardiovascular: Rhythm Regular Respiratory: Normal Breath Sounds, No Rales, No Rhonchi, No Wheezing Gastrointestinal/Abdominal: Soft, No Tenderness, No Guarding, No Rebound Extremity: Normal ROM, No Tenderness, No Swelling Neurological/Psych: Oriented x3, Normal Speech, Normal Cognition Gait: Steady ED Course And Treatment - Laboratory Results Result Diagrams: 06/18/18 21:32 06/18/18 21:32 O2 Sat by Pulse Oximetry: 94 Medical Decision Making Medical Decision Making: Plan: * Labs * UA * Crisis eval Disposition Discussed With DrMichaela: Darby Hood Doctor Will See Patient In The: Hospital Counseled Patient/Family Regarding: Diagnosis - Disposition Disposition: HOSPITALIZED Disposition Time: 00:13 Condition: STABLE Forms: [facility] ([place]) - POA Present On Arrival: None - Clinical Impression Clinical Impression: Major depression, Cocaine abuse, Opioid abuse - Scribe Statement The provider has reviewed the documentation as recorded by the Scribe Tk Billy All medical record entries made by the Scribe were at my direction and p ersonally dictated by me. I have reviewed the chart and agree that the record accurately reflects my personal performance of the history, physical exam, medical decision making, and the department course for this patient. I have also personally directed, reviewed, and agree with the discharge instructions and disposition.
[2018-06-18 21:40] LABS: BASO % 0.4 % (0.0-2.0); EOS # 0.1 K/uL (0.0-0.7); EOS % 1.8 % (0.0-4.0); HEMOGLOBIN 14.2 g/dL (12.0-18.0); LYMPH # 1.4 K/uL (1.0-4.3); LYMPH % 23.2 % (20.0-40.0); MEAN CELL VOLUME 89.9 fL (80.0-94.0); MEAN CORPUSCULAR HEMOGLOBIN 30.5 pg (27.0-31.0); MEAN CORPUSCULAR HGB CONC 33.9 g/dL (33.0-37.0); MEAN PLATELET VOLUME 9.6 fL (7.2-11.7); MONO # 0.7 K/uL (0.0-0.8); MONO % 10.6 % (0.0-10.0); RBC 4.65 Mil/uL (4.40-5.90); WHITE BLOOD COUNT 6.2 K/uL (4.8-10.8)
[2018-06-18 21:53] LABS: URINE BILIRUBIN NEGATIVE (NEGATIVE); URINE BLOOD NEGATIVE (NEGATIVE); URINE CLARITY Hazy (Clear); URINE COLOR Amber (YELLOW); URINE GLUCOSE (UA) NORMAL (Normal); URINE LEUKOCYTE ESTERASE NEG Leu/uL (Negative); URINE PROTEIN 1+ mg/dL (NEGATIVE)
[2018-06-18 21:55] LABS: BARBITURATES, UR NEGATIVE (NEGATIVE); PHENCYCLIDINE, UR NEGATIVE (NEGATIVE)
[2018-06-18 22:04] LABS: BENZODIAZEPINES, UR POSITIVE (NEGATIVE); OPIATES, UR POSITIVE (NEGATIVE)
[2018-06-18 22:06] LABS: ALB/GLOB RATIO 1.3 (1.0-2.1); ALBUMIN 4.3 g/dL (3.5-5.0); ALT/SGPT 163 U/L (21-72); AST/SGOT 365 U/L (17-59); BLOOD UREA NITROGEN 21 mg/dL (9-20); GFR NON-AFRICAN AMERICAN > 60
[2018-06-19 00:24] VITALS: O2SAT 98
--- NOTE | 2018-06-19 01:38 | PCM.BM ---
<Balta Sidhu - Last Filed: 06/19/18 01:35> Treatment Plan Problems - Problems identified on initial assessmt Defensive Coping Date Initiated: 06/19/18 Time Initiated: 00:55 Assessment reference: NA Status: Active Social Isolation Date Initiated: 06/19/18 Time Initiated: 00:55 Assessment reference: NA Status: Active Treatment assets and liabiliti Patient Assests: adapts well, cooperative, ADL independent, physically healthy, negotiates basic needs, cognitively intact Patient Liabilities: live alone, relationship conflicts, substance abuse - Milieu Protocol Maintain good personal hygiene: daily Encourage regular showers, daily Remind patient to perform daily oral care, daily Assist patient to perform ADL's Conduct patient checks and document Observation sheet: Q15 minutes Maintain personal safety: every shift Educate patient to report safety concerns to staff, every shift Monitor environment for contraband/sharps Medication safety: Monitor for expected outcome, potential side effects: every shift, Assess barriers to learning: every shift, Assess readiness for medication education: every shift <Dayana Peraza - Last Filed: 06/19/18 12:01> Family Contact Family involvement: Patient does not wish Family/SO involvement Family contact: Patient declines to allow family contact at present - Goals for Treatment Patient goals for treatment: "I want to go to [facility] rehab." Discharge/Continuing Care - Education Needs Education Needs: Patient Medication, Patient Diagnosis/Disease Process, Patient Coping Skills - Discharge Discharge Criteria: Free of Suicidal thoughts, Normal sleep pattern, Ability to care for self, No longer exhibiting s/s of withdrawal, Reduction of target symptoms Discharge to:: Substance Abuse Rehab - Treatment Team Participation Discussed with Family/SO: No Was Patient/Family/SO present at Treatment Team Meeting: Yes <Ilan Conde - Last Filed: 06/19/18 12:48> - Diagnosis (1) Major depression Status: Acute Interventions: 06/19/18 12:43 * Assess/adjust medications daily and /or as needed * See patient on an individual basis 7x/week to assess symptoms of depression * Monitor for side effects & effectiveness of medications * (2) Alcohol abuse Status: Acute Interventions: 06/19/18 12:47 * Assess 7x/week regarding severity of withdrawal * Educate regarding risks, benefits, side effects and alternatives of medications * Use Motivational Interviewing for abstinence * Use CBT for relapse prevention * Medication management for withdrawal symptoms * Encourage medication assisted treatment * (3) Opioid use disorder, severe, dependence Status: Acute Interventions: 06/19/18 12:47 * Assess 7x/week regarding severity of withdrawal * Educate regarding risks, benefits, side effects and alternatives of medications * Use Motivational Interviewing for abstinence * Use CBT for relapse prevention * Medication management for withdrawal symptoms * Encourage medication assisted treatment *
--- NOTE | 2018-06-19 11:30 | PCM.PSYCH ---
Initial Psychiatric Evaluation - Initial Psychiatric Evaluation Type of Admission: Voluntary Legal Status: Capacity Chief Complaint (in patient's own words): "Depressed" History of Present Illness and Precipitating Events: The patient is seen, chart reviewed, case discussed. He is well known to the commercial insurance underwriter from patient's previous many admissions. This is a 53-year-old male, single, homeless, unemployed. He stays with friends or mother at times. He claims he relapsed soon after d/c from here and no longer can stay with his mother. He feels depressed and anxious b/c of his stressors and has had suicidal thoughts and history of attempts in the past but not recently. He uses 10 bags IV, last use was yesterday. He denies using other drugs but he drinks about 10 cans of beer every day, but denies any withdrawal symptoms. He smokes MJ and uses 2 x 2mg Xanax tablets. No seizures but he has had withdrawal symptoms. He was also in [facility] and then [facility] and [facility] for sub and methadone but the dropped out or not accepted. No psychosis or mark now. Psychiatric history: He was admitted more than 7 times. He was on Seroquel, Remeron and Neurontin in the past. Family psych history: None known Medical history: Hepatitis C. Current Medications: Active Medications Generic Name Dose Route Start Last Admin Trade Name Radha PRN Reason Stop Dose Admin Influenza Virus Vaccine 60 mcg 06/21/18 10:00 Flucelvax Quad [id number] Syr IM 06/21/18 10:01 .ONCE ONE Pneumococcal Polyvalent Vaccine 0.5 ml 06/21/18 10:30 Pneumovax 23 Vaccine IM 06/21/18 10:31 .ONCE ONE Past Psychiatric History - Past Psychiatric History Previous Treatment History: Inpatient Pertinent Medical Hx (Current Medical&Sleep Prob, Allergies): Allergies Allergy/AdvReac Type Severity Reaction Status Date / Time FISH AdvReac Mild nausea/vomi Verified 05/30/18 08:50 t/rash Gabapentin [Neurontin] 400 mg PO TID 05/07/18 QUEtiapine [SEROquel] 200 mg PO HS 05/07/18 Clonazepam [Klonopin] 2 mg PO BID #2 tablet 05/09/18 Alprazolam [Xanax] 2 mg PO DAILY 06/18/18 Review of Systems - Psychiatric Psychiatric: Abnormal Sleep Pattern, Anhedonia, Anxiety, Change in Appetite, Depression, Difficulty Concentrating, Irritability. absent: Hallucinations, Homicidal Ideation, Suicidal Ideation Mental Status Examination - Personal Presentation Personal Presentation: Looks stated age - Affect Affect: Constricted - Motor Activity Motor Activity: Calm - Reliability in Providing Information Reliability in Providing Information: Good - Speech Speech: Organized - Mood Mood: Depressed, Anxious - Formal Thought Process Formal Thought Process: No Impairment - Cognitive Functions Orientation: Person, Place, Situation, Time Sensorium: Alert Attention/Concentration: Easily distracted Estimate of Intelligence: Average Judgement: Intact, as evidence by: Insight regarding need for hospitalization Memory: Recent intact, as evidence by: Ability to recall events of the day, Remote intact, as evidenced by: Abilit to recall sig. life events - Risk Risk: Withdrawal, Diminished functioning - Strength & Assets Inventory Strength & Assets Inventory: Cooperative - Limitations Limitations: Other DSM 5 DX - DSM 5 DSM 5 Diagnosis: Primary: Major depressive disorder-recurrent, severe not psychotic Opioid use disorder- severe Opioid withdrawal Alcohol use d/o Alcohol and sedative, hypnotic withdrawal Sedative, hypnotic use d/o - severe Cannabis use d/o Personality d/o - unspecified - Recommended/Plan of Treatment Treatment Recommendations and Plan of Treatment: Taper with methadone and ativan Gabapentin for augmentation Lexapro and seroquel for depression As needed medications All risks, benefits and alternatives of the meds discussed, and the pt agreed and understood. Attend groups and activities Supportive therapy and psychoeducation [place] for abstinence CBT for relapse prevention Encourage MAT Refer to rehab or IOP, and self-help groups Teach healthy lifestyle methods, i.e. diet, exercise, meditation Smoking cessation with [place] Nicotine patch if needed 34 min Projected ELOS: 4-5 days - Smoking Cessation Smoking Cessation Initiated: Yes
[2018-06-19] MEDS: Multiple Vitamins Tab PO SCH (13:32)
[2018-06-20] MEDS: Multiple Vitamins Tab PO SCH (10:02)
--- NOTE | 2018-06-21 08:43 | PCM.PYCHPN ---
Psychiatric Progress Note - Psychiatric Progress Note Patient seen today, length of contact: 17 min Patient Chief Complaint: "Not feeling well" Problems Identified/Issues Discussed: The pt is seen, chart reviewed, case discussed with staff. The pt is compliant with medications and reports no side-effects. Symptoms are improving but needs more time to stabilize. Pt attends groups and activities. Support given, psycho-education provided. After care discussed. Medication Change: Yes (detox changes daily) Medical Record Reviewed: Yes Mental Status Examination - Cognitive Function Orientation: Person, Place, Situation, Time Memory: Intact Attention: WNL Concentration: Poor Association: WNL Fund of Knowledge: WNL - Mood Mood: Depressed, Anxious - Affect Affect: Constricted - Speech Speech: Appropriate - Formal Thought Process Formal Thought Process: No Impairment - Suicidal Ideation Suicidal Ideation: No - Homicidal Ideation Homicidal Ideation: No Goal/Treatment Plan - Goal/Treatment Plan Need for Continued Stay: Discharge may exacerbated symptoms, Severe functional impairment Progress Toward Problem(s) and Goals/Treatment Plan: Taper with methadone and ativan Gabapentin for augmentation Lexapro and seroquel for depression As needed medications All risks, benefits and alternatives of the meds discussed, and the pt agreed and understood. Attend groups and activities Supportive therapy and psychoeducation [place] for abstinence CBT for relapse prevention Encourage MAT Refer to rehab or IOP, and self-help groups Teach healthy lifestyle methods, i.e. diet, exercise, meditation Smoking cessation with [place] Nicotine patch if needed Estimated Date of D/C: 06/23/18
[2018-06-21] MEDS ORDERED: Influenza Vaccine 60 mcg/0.5 mL SYR (4YR UP) IM ONE (10:00)
[2018-06-21] MEDS ORDERED: Pneumococcal 23-Valent Vaccine IM ONE (10:30)
[2018-06-21] MEDS: Multiple Vitamins Tab PO SCH (11:00)
--- NOTE | 2018-06-21 14:17 | PCM.PYCHPN ---
Psychiatric Progress Note - Psychiatric Progress Note Patient seen today, length of contact: 16 min Patient Chief Complaint: "Tired" Problems Identified/Issues Discussed: The pt is seen, chart reviewed, case discussed with staff. Support and psychoeducation given, CBT and [place] used briefly Pt is improving slowly and needs more time, still has ongoing symptoms. No SEs from medications, risks discussed. After care discussed - Now he is interested in [facility] Medication Change: Yes (detox changes daily, increase lexapro) Medical Record Reviewed: Yes Mental Status Examination - Cognitive Function Orientation: Person, Place, Situation, Time Memory: Intact Attention: WNL Concentration: Poor Association: WNL Fund of Knowledge: WNL - Mood Mood: Depressed, Anxious - Affect Affect: Constricted - Speech Speech: Appropriate - Formal Thought Process Formal Thought Process: No Impairment - Suicidal Ideation Suicidal Ideation: No - Homicidal Ideation Homicidal Ideation: No Goal/Treatment Plan - Goal/Treatment Plan Need for Continued Stay: Discharge may exacerbated symptoms, Severe functional impairment Progress Toward Problem(s) and Goals/Treatment Plan: Taper with methadone and ativan Gabapentin for augmentation Lexapro and seroquel for depression As needed medications All risks, benefits and alternatives of the meds discussed, and the pt agreed and understood. Attend groups and activities Supportive therapy and psychoeducation [place] for abstinence CBT for relapse prevention Encourage MAT Refer to rehab or IOP, and self-help groups Teach healthy lifestyle methods, i.e. diet, exercise, meditation Smoking cessation with [place] Nicotine patch if needed Estimated Date of D/C: 06/23/18
[2018-06-22 07:05] VITALS: TEMP 98.3
[2018-06-22] MEDS: Multiple Vitamins Tab PO SCH (09:59)
--- NOTE | 2018-06-22 11:49 | PCM.PYCHPN ---
Psychiatric Progress Note - Psychiatric Progress Note Patient seen today, length of contact: 15 min Patient Chief Complaint: "So so" Problems Identified/Issues Discussed: The pt is seen again, chart reviewed, and case is discussed with the team. The pt denies any side-effects from meds. Attends activities and groups, brief individual therapy provided Not ready for discharge due to ongoing symptoms and high relapse risk. After care discussed again. [facility] go to [facility] Medication Change: Yes (detox changes daily) Medical Record Reviewed: Yes Mental Status Examination - Cognitive Function Orientation: Person, Place, Situation, Time Memory: Intact Attention: WNL Concentration: Poor Association: WNL Fund of Knowledge: WNL - Mood Mood: Depressed, Anxious - Affect Affect: Constricted - Speech Speech: Appropriate - Formal Thought Process Formal Thought Process: No Impairment - Suicidal Ideation Suicidal Ideation: No - Homicidal Ideation Homicidal Ideation: No Goal/Treatment Plan - Goal/Treatment Plan Need for Continued Stay: Discharge may exacerbated symptoms, Severe functional impairment Progress Toward Problem(s) and Goals/Treatment Plan: Taper with methadone and ativan Gabapentin for augmentation Lexapro and seroquel for depression As needed medications All risks, benefits and alternatives of the meds discussed, and the pt agreed and understood. Attend groups and activities Supportive therapy and psychoeducation [place] for abstinence CBT for relapse prevention Encourage MAT Refer to rehab or IOP, and self-help groups Teach healthy lifestyle methods, i.e. diet, exercise, meditation Smoking cessation with [place] Nicotine patch if needed Estimated Date of D/C: 06/23/18
[2018-06-22 18:30] VITALS: RESP 19
[2018-06-23 08:46] VITALS: BP 121/79; PULSE 67
--- NOTE | 2018-06-23 08:58 | PCM.PYCHDC ---
Mental Status Examination - Mental Status Examination Orientation: Person Discharge Summary - Discharge Note Consultations:: List each consultation separately and include: 1. Reason for request. 2. Findings. 3. Follow-up Summary of Hospital Course include:: 1. Description of specific treatment plan utilized for patients during their course of treatmen. 2. Summarize the time- course for resolution of acute symptoms and/or regressed behaviors. 3. Describe issues identified and worked on during hospitalization. 4. Describe medication utilized. 5. Describe medical problems identified and treated. 6. Reassessment of suicide risk Summary of Hospital Course: The patient is seen, chart reviewed, case discussed. He is well known to the conventional mortgage underwriter from patient's previous many admissions. This is a 53-year-old male, single, homeless, unemployed. He stays with friends or mother at times. He claims he relapsed soon after d/c from here and no longer can stay with his mother. He feels depressed and anxious b/c of his stressors and has had suicidal thoughts and history of attempts in the past but not recently. He uses 10 bags IV, last use was yesterday. He denies using other drugs but he drinks about 10 cans of beer every day, but denies any withdrawal symptoms. He smokes MJ and uses 2 x 2mg Xanax tablets. No seizures but he has had withdrawal symptoms. He was also in [facility] and then [facility] for sub and methadone but the dropped out or not accepted. No psychosis or mark now. Psychiatric history: He was admitted more than 7 times. He was on Seroquel, Remeron and Neurontin in the past. Family psych history: None known Medical history: Hepatitis C. He will go to [facility] in but wants to "take care of some stuff before" and he is warned against missing this opportunity. - Diagnosis (1) Major depression Current Visit: Yes Status: Acute (2) Alcohol abuse Current Visit: No Status: Acute (3) Opioid use disorder, severe, dependence Current Visit: No Status: Acute - Final Diagnosis (DSM 5) Condition upon Discharge: STABLE Disposition: HOME/ ROUTINE Follow-up Treatment Plan: Taper with methadone and ativan Gabapentin for augmentation Lexapro and seroquel for depression As needed medications All risks, benefits and alternatives of the meds discussed, and the pt agreed and understood. Attend groups and activities Supportive therapy and psychoeducation MD for abstinence CBT for relapse prevention Encourage MAT Refer to rehab or IOP, and self-help groups Teach healthy lifestyle methods, i.e. diet, exercise, meditation Smoking cessation with MD Nicotine patch if needed Prescriptions/Medication Reconciliation: Escitalopram [Lexapro] 10 mg PO DAILY #30 tab Gabapentin [Neurontin] 300 mg PO TID #90 cap Mirtazapine [Remeron] 15 mg PO HS #30 tab Propranolol [Inderal] 10 mg PO TID #90 tab QUEtiapine [SEROquel] 200 mg PO HS #30 tab
[2018-06-23] MEDS: Multiple Vitamins Tab PO SCH (09:32)
== END 2018-06-23 09:45 | disposition home or self-care (01) | DRG 430 ==
LOC: C.ER 20:50 → C.5E 06-19 00:15
PROVIDERS: ADMIT Psychiatry & Neurology Psychiatry; ATTEND Psychiatry & Neurology Psychiatry
PROC: HZ52ZZZ Individual Psychotherapy for Substance Abuse Treatment, Cognitive-Behavioral (ICD-10-PCS; principal; 2018-06-19)
PROC: GZHZZZZ Group Psychotherapy (ICD-10-PCS; 2018-06-19)
PROC: HZ2ZZZZ Detoxification Services for Substance Abuse Treatment (ICD-10-PCS; 2018-06-19)
PROC: HZ59ZZZ Individual Psychotherapy for Substance Abuse Treatment, Supportive (ICD-10-PCS; 2018-06-19)
PROC: HZ56ZZZ Individual Psychotherapy for Substance Abuse Treatment, Psychoeducation (ICD-10-PCS; 2018-06-19)
PROC: HZ42ZZZ Group Counseling for Substance Abuse Treatment, Cognitive-Behavioral (ICD-10-PCS; 2018-06-19)
PROC: HZ46ZZZ Group Counseling for Substance Abuse Treatment, Psychoeducation (ICD-10-PCS; 2018-06-19)
PROC: GZ56ZZZ Individual Psychotherapy, Supportive (ICD-10-PCS; 2018-06-19)
DX: F33.2 Major depressive disorder, recurrent severe without psychotic features (principal); F11.23 Opioid dependence with withdrawal; B19.20 Unspecified viral hepatitis C without hepatic coma; F13.230 Sedative, hypnotic or anxiolytic dependence with withdrawal, uncomplicated; R45.851 Suicidal ideations; F10.230 Alcohol dependence with withdrawal, uncomplicated; Y90.0 Blood alcohol level of less than 20 mg/100 ml; F12.10 Cannabis abuse, uncomplicated; Z60.4 Social exclusion and rejection; Z59.0 Homelessness

== ENCOUNTER 2018-07-08 20:38 | Emergency (ER) | payer OTHER ==
[2018-07-08 20:38] VITALS: BMI 29.7
--- NOTE | 2018-07-08 21:14 | C.PDOC ---
History Of Present Illness 53 year old male presents requesting detox. When told there are no detox beds available patient asked to be seen by psych for evaluation. Denies SI or HI. Chief Complaint (Nursing): Psychiatric Evaluation History Per: Patient History/Exam Limitations: no limitations Onset/Duration Of Symptoms: Hrs Current Symptoms Are (Timing): Still Present Associated Symptoms: denies: Suicidal Thoughts, Other (Homicidal ideation) Involuntary Hold By: None Recent travel outside of the [place]: No Past Medical History Reviewed: Historical Data, Nursing Documentation, Vital Signs Vital Signs: Last Vital Signs Temp 98.6 F 07/08/18 20:48 Pulse 90 07/08/18 20:48 Resp 18 07/08/18 20:48 BP 100/68 07/08/18 20:48 Pulse Ox 99 07/08/18 20:48 - Medical History PMH: Anxiety, Bipolar Disorder, Depression Denies: Diabetes, Hepatitis, HIV, HTN, Chronic Kidney Disease, Seizures, Sexu ally Transmitted Disease - [facility] Procedures DETOXIFICATION SERVICES FOR SUBSTANCE ABUSE TREATMENT (06/19/18) GROUP HAIRSPRING II INSPECTOR FOR SUBSTANCE ABUSE TREATMENT, PSYCHOEDUCATION (06/19/18) GROUP HAIRSPRING II INSPECTOR FOR SUBSTANCE ABUSE, COGNITIVE BEHAVIORAL (06/19/18) GROUP PSYCHOTHERAPY (06/19/18) INDIV HAIRSPRING II INSPECTOR FOR SUBSTANCE ABUSE TREATMENT, CONTINUING CARE (03/31/15) INDIV PSYCHOTHERAPY FOR SUBSTANCE ABUSE TREATMENT, SUPPORT (06/19/18) INDIV PSYCHOTHERAPY FOR SUBSTANCE ABUSE, COGNITIV BEHAVIORAL (06/19/18) INDIV PSYCHOTHERAPY FOR SUBSTANCE ABUSE, PSYCHOEDUCATION (06/19/18) INDIVIDUAL PSYCHOTHERAPY, COGNITIVE-BEHAVIORAL (02/06/18) INDIVIDUAL PSYCHOTHERAPY, SUPPORTIVE (06/19/18) INJECT/INFUSE NEC (03/03/13) MEDICATION MANAGEMENT (04/02/18) Family History: States: Unknown Family Hx - Social History Hx Tobacco Use: Yes Hx Alcohol Use: Yes Hx Substance Use: Yes - Immunization History Hx Tetanus Toxoid Vaccination: No Hx Influenza Vaccination: No Hx Pneumococcal Vaccination: No Review Of Systems Constitutional: Negative for: Fever, Chills Cardiovascular: Negative for: Chest Pain, Palpitations Respiratory: Negative for: Cough, Shortness of Breath Gastrointestinal: Negative for: Nausea, Vomiting Neurological: Negative for: Weakness, Numbness Physical Exam - Physical Exam Appears: Non-toxic Skin: Normal Color, Warm, Dry Head: Atraumatic, Normacephalic Eye(s): bilateral: Normal Inspection Oral Mucosa: Moist Neck: Normal, Supple Chest: Symmetrical, No Tenderness Cardiovascular: Rhythm Regular Respiratory: Normal Breath Sounds, No Rales, No Rhonchi, No Wheezing Gastrointestinal/Abdominal: Soft, No Tenderness Neurological/Psych: Oriented x3, Normal Speech ED Course And Treatment - Laboratory Results Result Diagrams: 07/08/18 22:18 07/08/18 22:18 O2 Sat by Pulse Oximetry: 99 (Room air) Pulse Ox Interpretation: Normal Progress Note: Blood work and urinalysis ordered. Disposition Discussed With DrMichaela: Jarrod Nelson Counseled Patient/Family Regarding: Diagnosis - Disposition Referrals: Non [facility] Provider, [Primary Care Provider] - [facility] [Outside] Disposition: HOME/ ROUTINE Disposition Time: 02:12 Condition: STABLE Instructions: Bipolar Disorder (DC), Polysubstance Abuse (DC) Forms: [facility] (Hebrew) - POA Present On Arrival: None - Clinical Impression Clinical Impression: Bipolar disorder - Scribe Statement The provider has reviewed the documentation as recorded by the Scribe Reid Ontiveros All medical record entries made by the Scribe were at my direction and personally dictated by me. I have reviewed the chart and agree that the record accurately reflects my personal performance of the history, physical exam, medical decision making, and the department course for this patient. I have also personally directed, reviewed, and agree with the discharge instructions and di sposition.
[2018-07-08 22:22] LABS: BASO % 0.3 % (0.0-2.0); EOS # 0.2 K/uL (0.0-0.7); EOS % 2.3 % (0.0-4.0); HEMOGLOBIN 13.1 g/dL (12.0-18.0); LYMPH # 1.8 K/uL (1.0-4.3); LYMPH % 20.9 % (20.0-40.0); MEAN CELL VOLUME 90.8 fL (80.0-94.0); MEAN CORPUSCULAR HEMOGLOBIN 30.8 pg (27.0-31.0); MEAN CORPUSCULAR HGB CONC 33.9 g/dL (33.0-37.0); MEAN PLATELET VOLUME 9.4 fL (7.2-11.7); MONO # 0.8 K/uL (0.0-0.8); MONO % 9.5 % (0.0-10.0); NEUT # 5.7 K/uL (1.8-7.0); RBC 4.27 Mil/uL (4.40-5.90); RED CELL DISTRIBUTION WIDTH 13.4 % (11.5-14.5); WHITE BLOOD COUNT 8.5 K/uL (4.8-10.8)
[2018-07-08 22:34] LABS: URINE BACTERIA RARE (<OCC)
[2018-07-08 22:35] LABS: URINE BILIRUBIN NEGATIVE (NEGATIVE); URINE BLOOD NEGATIVE (NEGATIVE); URINE CLARITY Hazy (Clear); URINE COLOR Amber (YELLOW); URINE GLUCOSE (UA) NORMAL (Normal); URINE LEUKOCYTE ESTERASE NEG Leu/uL (Negative); URINE PROTEIN 1+ mg/dL (NEGATIVE)
[2018-07-08 22:52] LABS: ALB/GLOB RATIO 1.4 (1.0-2.1); ALT/SGPT 42 U/L (21-72); AST/SGOT 51 U/L (17-59); BLOOD UREA NITROGEN 20 mg/dL (9-20); CALCIUM 8.3 mg/dl (8.6-10.4); GFR NON-AFRICAN AMERICAN > 60
[2018-07-08 23:03] LABS: BARBITURATES, UR NEGATIVE (NEGATIVE); PHENCYCLIDINE, UR NEGATIVE (NEGATIVE)
[2018-07-08 23:04] LABS: BENZODIAZEPINES, UR POSITIVE (NEGATIVE); OPIATES, UR POSITIVE (NEGATIVE)
[2018-07-09 03:24] VITALS: BP 164/89; PULSE 92; RESP 19; TEMP 97.3; O2SAT 97
== END 2018-07-09 03:23 | disposition home or self-care (01) ==
LOC: C.ER 20:38 → SUPCPDRO 20:38 → C.ER 07-09 03:23
DX: F31.9 Bipolar disorder, unspecified (principal); Z72.0 Tobacco use

== ENCOUNTER 2018-07-17 20:30 | Inpatient (IN) | payer MEDICAID, OTHER ==
[2018-07-17 20:31] VITALS: BMI 27.3
--- NOTE | 2018-07-17 21:46 | C.PDOC ---
History Of Present Illness 53 yr old male w/ hx opiate abuse, bipolar, depression presents with desire for detoxification and suicidial ideation. He notes injecting heroin into his b/l AC space earlier in the day in an attempt to kill himself and is requesting detox from opiates. He denies any fever, intermittent fevers or arm pain. No chest pain or sob. No neck stiffness or headache. No arm rash. No fall or trauma. No other physical complaints. Time Seen by Provider: 07/17/18 21:46 Chief Complaint (Nursing): Psychiatric Evaluation Past Medical History Vital Signs: Last Vital Signs Temp 98.8 F 07/17/18 21:00 Pulse 107 H 07/17/18 21:00 Resp 22 07/17/18 21:00 BP 111/75 07/17/18 21:00 Pulse Ox 97 07/17/18 21:00 - Medical History PMH: Anxiety, Bipolar Disorder, Depression Denies: Diabetes, Hepatitis, HIV, HTN, Chronic Kidney Disease, Seizures, Sexually Transmitted Disease - [facility] Procedures DETOXIFICATION SERVICES FOR SUBSTANCE ABUSE TREATMENT (06/19/18) GROUP TUNNELING MACHINE OPERATOR FOR SUBSTANCE ABUSE TREATMENT, PSYCHOEDUCATION (06/19/18) GROUP TUNNELING MACHINE OPERATOR FOR SUBSTANCE ABUSE, COGNITIVE BEHAVIORAL (06/19/18) GROUP PSYCHOTHERAPY (06/19/18) INDIV TUNNELING MACHINE OPERATOR FOR SUBSTANCE ABUSE TREATMENT, CONTINUING CARE (03/31/15) INDIV PSYCHOTHERAPY FOR SUBSTANCE ABUSE TREATMENT, SUPPORT (06/19/18) INDIV PSYCHOTHERAPY FOR SUBSTANCE ABUSE, COGNITIV BEHAVIORAL (06/19/18) INDIV PSYCHOTHERAPY FOR SUBSTANCE ABUSE, PSYCHOEDUCATION (06/19/18) INDIVIDUAL PSYCHOTHERAPY, COGNITIVE-BEHAVIORAL (02/06/18) INDIVIDUAL PSYCHOTHERAPY, SUPPORTIVE (06/19/18) INJECT/INFUSE NEC (03/03/13) MEDICATION MANAGEMENT (04/02/18) Family History: States: Unknown Family Hx - Social History Hx Tobacco Use: Yes Hx Alcohol Use: Yes Hx Substance Use: Yes - Immunization History Hx Tetanus Toxoid Vaccination: No Hx Influenza Vaccination: No Hx Pneumococcal Vaccination: No Review Of Systems Constitutional: Negative for: Fever, Chills, Sweats, Weakness, Malaise Eyes: Negative for: Pain, Vision Change ENT: Negative for: Ear Pain, Ear Discharge, Nose Pain, Nose Discharge, Nose Congestion, Mouth Pain, Mouth Swelling Cardiovascular: Negative for: Chest Pain, Edema Respiratory: Negative for: Cough, Shortness of Breath, SOB with Excertion Gastrointestinal: Negative for: Nausea, Vomiting, Abdominal Pain, Diarrhea, Constipation, Melena, Hematochezia Genitourinary: Negative for: Dysuria, Frequency, Incontinence, Hematuria, Penile Discharge, Scrotal Pain Musculoskeletal: Negative for: Neck Pain, Shoulder Pain, Back Pain, Hand Pain Neurological: Negative for: Weakness, Confusion, Headache Psych: Positive for: Suicidal ideation Physical Exam - Physical Exam Appears: Non-toxic, No Acute Distress Skin: Normal Color, Warm, Other (track torres noted to b/l ac fossa. no erythemam crepitus or signs of infection) Head: Atraumatic, Normacephalic Eye(s): bilateral: Normal Inspection, PERRL, EOMI Nose: Normal Oral Mucosa: Moist Throat: Normal, No Erythema, No Exudate Neck: Normal, Normal ROM, Supple, Other (no meningeal signs) Lymphatic: Normal Exam, No Adenopathy Chest: Symmetrical Cardiovascular: Rhythm Regular Respiratory: Normal Breath Sounds Gastrointestinal/Abdominal: Normal Exam, Soft, No Tenderness Back: Normal Inspection, No CVA Tenderness, No Vertebral Tenderness Extremity: Normal ROM, No Tenderness, No Swelling Extremity: Bilateral: Atraumatic Neurological/Psych: Oriented x3, Normal Speech, Normal Cognition Gait: Steady Extremity: Right: No Drift, Left: No Drift ED Course And Treatment - Laboratory Results Result Diagrams: 07/17/18 22:29 07/17/18 22:29 O2 Sat by Pulse Oximetry: 97 Medical Decision Making Medical Decision Makin yr old male w/ hx of anxiety, depression p/w SI and detox from opiate request. No fall or trauma noted. No meningeal signs and normal neuro exam. Will likely require medical clearance and psych eval. No physical complaints. Injection signs non-infected appearing. 1130 labs resulted, largely unremarkable no signs of etoh withdrawal. medically clear [address] Ramey pending crisis dispo pt in nad Disposition - Disposition Disposition Time: 00:41 Condition: STABLE Forms: [facility] (Georgian) - Clinical Impression Clinical Impression: Desire for detoxification
[2018-07-17 22:44] LABS: BASO % 0.4 % (0.0-2.0); EOS # 0.1 K/uL (0.0-0.7); EOS % 0.9 % (0.0-4.0); HEMOGLOBIN 14.8 g/dL (12.0-18.0); LYMPH # 1.2 K/uL (1.0-4.3); LYMPH % 13.8 % (20.0-40.0); MEAN CELL VOLUME 91.7 fL (80.0-94.0); MEAN CORPUSCULAR HEMOGLOBIN 30.6 pg (27.0-31.0); MEAN CORPUSCULAR HGB CONC 33.3 g/dL (33.0-37.0); MEAN PLATELET VOLUME 8.9 fL (7.2-11.7); MONO # 0.7 K/uL (0.0-0.8); MONO % 7.5 % (0.0-10.0); NEUT # 6.9 K/uL (1.8-7.0); NEUT % 77.4 % (50.0-75.0); RBC 4.83 Mil/uL (4.40-5.90); WHITE BLOOD COUNT 8.9 K/uL (4.8-10.8)
[2018-07-17 22:51] LABS: ACETAMINOPHEN < 10.0 ug/mL (10.0-30.0); SALICYLATE < 1.0 mg/dL 1
[2018-07-17 22:57] LABS: ALB/GLOB RATIO 1.3 (1.0-2.1); ALBUMIN 4.3 g/dL (3.5-5.0); ALT/SGPT 37 U/L (21-72); AST/SGOT 36 U/L (17-59); BLOOD UREA NITROGEN 19 mg/dL (9-20); CALCIUM 9.6 mg/dl (8.6-10.4); GFR NON-AFRICAN AMERICAN > 60
[2018-07-17 22:59] LABS: BARBITURATES, UR NEGATIVE (NEGATIVE); BENZODIAZEPINES, UR POSITIVE (NEGATIVE); OPIATES, UR POSITIVE (NEGATIVE); PHENCYCLIDINE, UR NEGATIVE (NEGATIVE); SQUAMOUS EPITHIAL < 1 /hpf (0-5); URINE BACTERIA OCC (<OCC); URINE BILIRUBIN NEGATIVE (NEGATIVE); URINE BLOOD NEGATIVE (NEGATIVE); URINE CLARITY Hazy (Clear); URINE GLUCOSE (UA) NORMAL (Normal); URINE HYALINE CAST >20 /lpf (0-2); URINE LEUKOCYTE ESTERASE NEG Leu/uL (Negative); URINE PROTEIN 1+ mg/dL (NEGATIVE); URINE UROBILINOGEN NORMAL mg/dL (0.2-1.0)
[2018-07-17 23:08] LABS: URINE COLOR YELLOW (YELLOW)
--- NOTE | 2018-07-18 04:01 | PCM.BM ---
<RadhaKaur M - Last Filed: 07/18/18 03:58> Treatment Plan Problems - Problems identified on initial assessmt Low Motivation to Change Date Initiated: 07/18/18 Time Initiated: 03:58 Assessment reference: NA Status: Active Treatment assets and liabiliti Patient Assests: adapts well, cooperative, ADL independent, physically healthy, negotiates basic needs, cognitively intact Patient Liabilities: poor support system, substance abuse, other (Homeless, Numerous past behavioral health admissions ) - Milieu Protocol Maintain good personal hygiene: daily Encourage regular showers, daily Remind patient to perform daily oral care, daily Assist patient to perform ADL's Conduct patient checks and document Observation sheet: Q15 minutes Maintain personal safety: every shift Educate patient to report safety concerns to staff, every shift Monitor environment for contraband/sharps Medication safety: Monitor for expected outcome, potential side effects: every shift, Assess barriers to learning: every shift, Assess readiness for medication education: every shift <Matilde Mittal - Last Filed: 07/19/18 07:57> Family Contact Family involvement: Famliy/SO not involved - Goals for Treatment Patient goals for treatment: Complete detox and apply for long-term residential program. Discharge/Continuing Care - Education Needs Education Needs: Patient Medication, Patient Diagnosis/Disease Process, Patient Coping Skills, Patient Anger Management skills, Patient Placement options, Patient Community resources - Discharge Discharge Criteria: No longer exhibiting s/s of withdrawal, Reduction of target symptoms Discharge to:: Substance Abuse Rehab - Treatment Team Participation Patient/Family/SO Statement: 07/19/18 07:56 "I wanna go to the [facility]." Discussed with Family/SO: No Was Patient/Family/SO present at Treatment Team Meeting: Yes
[2018-07-18] MEDS: Multiple Vitamins Tab PO SCH (10:22)
[2018-07-18] MEDS: Aluminum Hydroxide/Magnesium Hydroxide Susp (30 mL) PO PRN ×4 (10:23→17:12)
[2018-07-18] MEDS: Magnesium Hydroxide Susp 30 ml UD PO SCH ×2 (10:27→17:13)
--- NOTE | 2018-07-18 13:08 | PCM.PSYCH ---
Initial Psychiatric Evaluation - Initial Psychiatric Evaluation Type of Admission: Voluntary Legal Status: Capacity Chief Complaint (in patient's own words): "I have not been able to sleep all night" Patient's Reaction to Hospitalization: The patient is seen, chart reviewed, case discussed. He is well known from patient's previous many admissions at inpatient psych unit (last discharge date 06/23/18) . Patient states this is his first time on detox unit. Patient is a 53-year-old male, single, homeless, unemployed. Patient has 3 older children. He used to stay with his mother, but states his mother is currently at a hospital with diagnosis of kidney cancer. Patient began using IV heroin 25 years ago. Patient consumes about 10-15 bags of IV heroin daily. Last time used was on tuesday, when patient attempted suicide by overdosing with 10 bags of heroin used at the same time. Patient states was "rescued" by a neighbor who gave him narcan nasal spray and "resucitated" him. Patient has been clean for a few days before last episode. Patient has been in the [facility] rehab program last year, but did not stay since he did not like working 40 hours a day. Patient was arranged to go back to [facility] on last time he was discharged from [facility] on 06/23, but states his mother was in the hospital in [place] and decided to go take care of her. Patient admits to taking xanax 1 mg a day. PAtient admits someone gave him methadone recently. Consumes 24 oz of beer a day, 1 pack of cigarettes that lasts him 4 days, and ocassional marihuana use. Patient has been hospitalized in [facility] several times in the past for depression/suicidal attempts. Pt denies SI, HI or hallucinations at this time. Patient is currently having body aches, states has not been able to sleep all night since he was admitted, admits to nausea and one episode of vomiting earlier. Psych hx: Depression, bipolar , anxiety Past medical history: hepatitis C and ADHD Family history: none known. Current Medications: Active Medications Generic Name Dose Route Start Last Admin Trade Name Freq PRN Reason Stop Dose Admin Al Hydrox/Mg Hydrox/Simethicone 30 ml 07/18/18 09:47 07/18/18 10:23 Maalox 30 Ml PO 30 ml TID PRN Administration Indigestion / Heartburn Chlordiazepoxide 25 mg 07/18/18 12:00 07/18/18 11:48 Librium PO 07/22/18 11:59 25 mg Q6H PAULINA Administration Taper Chlordiazepoxide 25 mg 07/18/18 10:41 Librium PO Q4H PRN Alcohol Withdrawal Clonidine HCl 0.1 mg 07/18/18 09:47 Catapres PO Q4 PRN COWS Score More or Equal to 5 Folic Acid 1 mg 07/18/18 10:00 07/18/18 10:22 Folic Acid PO 1 mg DAILY PAULINA Administration Hydroxyzine HCl 50 mg 07/18/18 09:50 Atarax PO Q6H PRN Anxiety Ibuprofen 600 mg 07/18/18 09:47 Motrin Tab PO Q6 PRN Pain, moderate (4-7) Loperamide HCl 2 mg 07/18/18 09:47 Imodium PO Q8 PRN Diarrhea Magnesium Hydroxide 30 ml 07/18/18 10:00 07/18/18 10:27 Milk Of Magnesia PO 07/20/18 10:01 Not Given BID [facility] Multivitamins 1 tab 07/18/18 10:00 07/18/18 10:22 Hexavitamin PO 1 tab DAILY PAULINA Administration Ondansetron HCl 4 mg 07/18/18 09:47 Zofran Tab PO Q8 PRN Nausea/Vomiting Thiamine HCl 100 mg 07/18/18 10:00 07/18/18 10:22 Vitamin B1 Tab PO 100 mg DAILY PAULINA Administration Trazodone HCl 100 mg 07/18/18 09:50 Desyrel PO HS PRN Insomnia Past Psychiatric History - Past Psychiatric History Previous Treatment History: Inpatient Pertinent Medical Hx (Current Medical&Sleep Prob, Allergies): Allergies Allergy/AdvReac Type Severity Reaction Status Date / Time FISH AdvReac Mild nausea/vomi Verified 07/17/18 21:05 t/rash Gabapentin [Neurontin] 400 mg PO TID 05/07/18 Clonazepam [Klonopin] 2 mg PO BID #2 tablet 05/09/18 Alprazolam [Xanax] 2 mg PO DAILY 06/18/18 Escitalopram [Lexapro] 10 mg PO DAILY #30 tab 06/22/18 Mirtazapine [Remeron] 15 mg PO HS #30 tab 06/22/18 Propranolol [Inderal] 10 mg PO TID #90 tab 06/22/18 QUEtiapine [SEROquel] 200 mg PO HS #30 tab 06/22/18 Review of Systems - Psychiatric Psychiatric: Abnormal Sleep Pattern, Anxiety, Change in Appetite, Depression, Irritability. absent: Homicidal Ideation, Suicidal Ideation Mental Status Examination - Personal Presentation Personal Presentation: Looks stated age - Affect Affect: Constricted - Motor Activity Motor Activity: Calm - Reliability in Providing Information Reliability in Providing Information: Fair - Speech Speech: Organized - Mood Mood: Depressed, Anxious - Formal Thought Process Formal Thought Process: No Impairment - Cognitive Functions Orientation: Person, Place, Situation, Time Sensorium: Alert Attention/Concentration: Attentive Abstract Thinking: [place] Judgement: Intact, as evidence by: Insight regarding need for hospitalization Memory: Remote intact, as evidenced by: Ability to recall historical events - Risk Risk: Withdrawal, Diminished functioning - Strength & Assets Inventory Strength & Assets Inventory: Cooperative DSM 5 DX - DSM 5 DSM 5 Diagnosis: Opioid withdrawal Opioid use disorder - severe 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 Attend groups and activities Supportive therapy and psychoeducation TN for abstinence CBT for relapse prevention Encourage MAT Refer to rehab or IOP, and self-help groups Teach healthy lifestyle methods, i.e. diet, exercise, meditation Smoking cessation with TN Nicotine patch if needed 34 minutes
[2018-07-19] MEDS: Multiple Vitamins Tab PO SCH (09:53)
[2018-07-19] MEDS: Magnesium Hydroxide Susp 30 ml UD PO SCH ×2 (09:55→17:11)
--- NOTE | 2018-07-19 10:13 | PCM.PYCHPN ---
Psychiatric Progress Note - Psychiatric Progress Note Patient seen today, length of contact: 15 min Patient Chief Complaint: "I feel fifty-fifty" Problems Identified/Issues Discussed: The pt is seen, chart reviewed, case discussed with staff. The pt is compliant with medications and reports no side-effects. Symptoms are improving but needs more time to stabilize. Patient reports being unable to sleep at nights. continues feeling body aches, and having little appetite. Pt attends groups and activities. Support given, psycho-education provided. After care discussed. Mental Status Examination - Cognitive Function Orientation: Person, Place, Situation, Time Memory: Intact Attention: WNL Concentration: WNL Association: [facility] Fund of Knowledge: WN - Mood Mood: Depressed, Anxious - Affect Affect: Constricted, Flat, Depressed - Speech Speech: Appropriate - Formal Thought Process Formal Thought Process: No Impairment - Suicidal Ideation Suicidal Ideation: No - Homicidal Ideation Homicidal Ideation: No Goal/Treatment Plan - Goal/Treatment Plan Need for Continued Stay: Discharge may exacerbated symptoms, Severe functional impairment Progress Toward Problem(s) and Goals/Treatment Plan: Taper with methadone Librium scheduled and as needed As needed medications All risks, benefits and alternatives of the meds discussed, and the pt agreed and understood. Attend groups and activities Supportive therapy and psychoeducation IA for abstinence CBT for relapse prevention Encourage MAT Refer to rehab or IOP, and self-help groups Teach healthy lifestyle methods, i.e. diet, exercise, meditation Smoking cessation with IA Nicotine patch if needed 34 minutes
[2018-07-20] MEDS: Magnesium Hydroxide Susp 30 ml UD PO SCH (09:46)
[2018-07-20] MEDS: Multiple Vitamins Tab PO SCH (10:16)
[2018-07-20] MEDS ORDERED: Petrolatum Oint Foilpak (5 gm) TOP PRN (11:57)
--- NOTE | 2018-07-20 12:43 | PCM.PYCHPN ---
Psychiatric Progress Note - Psychiatric Progress Note Patient seen today, length of contact: 15 min Patient Chief Complaint: "Im doing ok" Problems Identified/Issues Discussed: The pt is seen, chart reviewed, case discussed with staff. The pt is compliant with medications and reports no side-effects. Symptoms are improving but needs more time to stabilize. Patient denies any issues at this time. Patient is less conversative compared to yesterday. Pt continues to attend groups and activities. Support given, psycho-education provided. After care discussed. Mental Status Examination - Cognitive Function Orientation: Person, Place, Situation, Time Memory: Intact Attention: WNL Concentration: WNL Association: WNL Fund of Knowledge: WNL - Mood Mood: Depressed - Affect Affect: Constricted, Flat, Depressed - Speech Speech: Soft - Formal Thought Process Formal Thought Process: No Impairment - Suicidal Ideation Suicidal Ideation: No - Homicidal Ideation Homicidal Ideation: No Goal/Treatment Plan - Goal/Treatment Plan Need for Continued Stay: Discharge may exacerbated symptoms, Severe functional impairment Progress Toward Problem(s) and Goals/Treatment Plan: Continue Taper with methadone Librium scheduled and as needed As needed medications All risks, benefits and alternatives of the meds discussed, and the pt agreed and understood. Attend groups and activities Supportive therapy and psychoeducation NE for abstinence CBT for relapse prevention Encourage MAT Refer to rehab or IOP, and self-help groups Teach healthy lifestyle methods, i.e. diet, exercise, meditation Smoking cessation with NE Nicotine patch if needed 34 minutes - Smoking Cessation Smoking Cessation Initiated: Yes
--- NOTE | 2018-07-21 08:43 | PCM.PYCHDC ---
Mental Status Examination - Mental Status Examination Orientation: Person Discharge Summary - Discharge Note Consultations:: List each consultation separately and include: 1. Reason for request. 2. Findings. 3. Follow-up Summary of Hospital Course include:: 1. Description of specific treatment plan utilized for patients during their course of treatmen. 2. Summarize the time- course for resolution of acute symptoms and/or regressed behaviors. 3. Describe issues identified and worked on during hospitalization. 4. Describe medication utilized. 5. Describe medical problems identified and treated. 6. Reassessment of suicide risk Summary of Hospital Course: He went to [facility] in . He was crump and there is possibility he can come ui with another excuse to avoid going there. - Final Diagnosis (DSM 5) Condition upon Discharge: STABLE Disposition: HOME/ ROUTINE
[2018-07-21] MEDS: Multiple Vitamins Tab PO SCH (09:16)
[2018-07-21] MEDS ORDERED: buPROPion 150 mg/24 Hours XL Tab PO SCH (10:00)
[2018-07-21 10:42] VITALS: BP 113/72; PULSE 71; RESP 18; TEMP 97.6; O2SAT 98
== END 2018-07-21 10:15 | disposition home or self-care (01) | DRG 745 ==
LOC: C.ER 20:30 → C.9E 07-18 02:56 → C.7D 07-18 03:45
PROC: HZ2ZZZZ Detoxification Services for Substance Abuse Treatment (ICD-10-PCS; principal; 2018-07-18)
PROC: HZ52ZZZ Individual Psychotherapy for Substance Abuse Treatment, Cognitive-Behavioral (ICD-10-PCS; 2018-07-18)
PROC: HZ59ZZZ Individual Psychotherapy for Substance Abuse Treatment, Supportive (ICD-10-PCS; 2018-07-18)
PROC: HZ56ZZZ Individual Psychotherapy for Substance Abuse Treatment, Psychoeducation (ICD-10-PCS; 2018-07-18)
PROC: HZ42ZZZ Group Counseling for Substance Abuse Treatment, Cognitive-Behavioral (ICD-10-PCS; 2018-07-18)
PROC: HZ46ZZZ Group Counseling for Substance Abuse Treatment, Psychoeducation (ICD-10-PCS; 2018-07-18)
PROC: GZHZZZZ Group Psychotherapy (ICD-10-PCS; 2018-07-18)
PROC: GZ58ZZZ Individual Psychotherapy, Cognitive-Behavioral (ICD-10-PCS; 2018-07-18)
PROC: GZ56ZZZ Individual Psychotherapy, Supportive (ICD-10-PCS; 2018-07-18)
DX: F11.23 Opioid dependence with withdrawal (principal); R45.851 Suicidal ideations; F13.20 Sedative, hypnotic or anxiolytic dependence, uncomplicated; F12.90 Cannabis use, unspecified, uncomplicated; Z59.0 Homelessness; F10.10 Alcohol abuse, uncomplicated; Y90.0 Blood alcohol level of less than 20 mg/100 ml; F17.210 Nicotine dependence, cigarettes, uncomplicated; F31.9 Bipolar disorder, unspecified; F90.9 Attention-deficit hyperactivity disorder, unspecified type; F41.9 Anxiety disorder, unspecified

== ENCOUNTER 2018-08-30 23:40 | Inpatient (IN) | payer OTHER ==
[2018-08-30 23:40] VITALS: BMI 27.3
[2018-08-31 00:57] LABS: BASO % 0.4 % (0.0-2.0); EOS # 0.4 K/uL (0.0-0.7); EOS % 4.9 % (0.0-4.0); HEMOGLOBIN 14.5 g/dL (12.0-18.0); LYMPH # 1.9 K/uL (1.0-4.3); LYMPH % 24.3 % (20.0-40.0); MEAN CELL VOLUME 91.5 fL (80.0-94.0); MEAN CORPUSCULAR HGB CONC 33.9 g/dL (33.0-37.0); MEAN PLATELET VOLUME 9.3 fL (7.2-11.7); MONO # 0.7 K/uL (0.0-0.8); MONO % 9.1 % (0.0-10.0); NEUT # 4.8 K/uL (1.8-7.0); NEUT % 61.3 % (50.0-75.0); RBC 4.68 Mil/uL (4.40-5.90); WHITE BLOOD COUNT 7.9 K/uL (4.8-10.8)
[2018-08-31 01:10] LABS: SQUAMOUS EPITHIAL < 1 /hpf (0-5); URINE BILIRUBIN NEGATIVE (NEGATIVE); URINE BLOOD NEGATIVE (NEGATIVE); URINE CLARITY Hazy (Clear); URINE COLOR Yellow (YELLOW); URINE GLUCOSE (UA) NORMAL (Normal); URINE LEUKOCYTE ESTERASE NEG Leu/uL (Negative); URINE PROTEIN NEGATIVE (NEGATIVE)
[2018-08-31 01:20] LABS: BARBITURATES, UR NEGATIVE (NEGATIVE); PHENCYCLIDINE, UR NEGATIVE (NEGATIVE)
[2018-08-31 01:27] LABS: ALB/GLOB RATIO 1.4 (1.0-2.1); ALBUMIN 4.6 g/dL (3.5-5.0); ALT/SGPT 49 U/L (21-72); AST/SGOT 66 U/L (17-59); BLOOD UREA NITROGEN 26 mg/dL (9-20); CALCIUM 9.3 mg/dl (8.6-10.4); GFR NON-AFRICAN AMERICAN > 60
[2018-08-31 01:44] LABS: BENZODIAZEPINES, UR POSITIVE (NEGATIVE); OPIATES, UR POSITIVE (NEGATIVE)
--- NOTE | 2018-08-31 01:54 | C.PDOC ---
History Of Present Illness 53 year old male presents stating he wants to kill himself. Patient has Hx of opiate and ETOH abuse, states he tried to kill himself yesterday by overdosing on heroin. Denies other complaints. Chief Complaint (Nursing): Psychiatric Evaluation History Per: Patient History/Exam Limitations: no limitations Onset/Duration Of Symptoms: Days Current Symptoms Are (Timing): Still Present Associated Symptoms: Suicidal Thoughts Recent travel outside of the [place]: No Past Medical History Reviewed: Historical Data, Nursing Documentation, Vital Signs Vital Signs: Last Vital Signs Temp 98.8 F 08/31/18 00:06 Pulse 80 08/31/18 00:06 Resp 14 08/31/18 00:06 BP 103/71 08/31/18 00:06 Pulse Ox 97 08/31/18 00:06 Primary Care Provider: FAMILY PROVIDER,NO - Medical History PMH: Anxiety, Bipolar Disorder, Depression Denies: Diabetes, Hepatitis, HIV, HTN, Chronic Kidney Disease, Seizures, Sexually Transmitted Disease - [facility] Procedures DETOXIFICATION SERVICES FOR SUBSTANCE ABUSE TREATMENT (07/18/18) GROUP TOW MOTOR DRIVER FOR SUBSTANCE ABUSE TREATMENT, PSYCHOEDUCATION (07/18/18) GROUP TOW MOTOR DRIVER FOR SUBSTANCE ABUSE, COGNITIVE BEHAVIORAL (07/18/18) GROUP PSYCHOTHERAPY (07/18/18) INDIV TOW MOTOR DRIVER FOR SUBSTANCE ABUSE TREATMENT, CONTINUING CARE (03/31/15) INDIV PSYCHOTHERAPY FOR SUBSTANCE ABUSE TREATMENT, SUPPORT (07/18/18) INDIV PSYCHOTHERAPY FOR SUBSTANCE ABUSE, COGNITIV BEHAVIORAL (07/18/18) INDIV PSYCHOTHERAPY FOR SUBSTANCE ABUSE, PSYCHOEDUCATION (07/18/18) INDIVIDUAL PSYCHOTHERAPY, COGNITIVE-BEHAVIORAL (07/18/18) INDIVIDUAL PSYCHOTHERAPY, SUPPORTIVE (07/18/18) INJECT/INFUSE NEC (03/03/13) MEDICATION MANAGEMENT (04/02/18) Family History: States: Unknown Family Hx - Social History Hx Tobacco Use: Yes Hx Alcohol Use: Yes Hx Substance Use: Yes - Immunization History Hx Tetanus Toxoid Vaccination: No Hx Influenza Vaccination: No Hx Pneumococcal Vaccination: No Review Of Systems Constitutional: Negative for: Fever, Chills Cardiovascular: Negative for: Chest Pain, Palpitations Respiratory: Negative for: Cough, Shortness of Breath Gastrointestinal: Negative for: Nausea, Vomiting Neurological: Negative for: Weakness, Numbness Physical Exam - Physical Exam Appears: Non-toxic Skin: Normal Color, Warm Head: Atraumatic, Normacephalic Oral Mucosa: Moist Chest: Symmetrical, No Tenderness Cardiovascular: Rhythm Regular Respiratory: Normal Breath Sounds, No Rales, No Rhonchi, No Wheezing Gastrointestinal/Abdominal: Soft, No Tenderness Neurological/Psych: Oriented x3, Normal Speech ED Course And Treatment - Laboratory Results Result Diagrams: 08/31/18 00:53 08/31/18 00:53 Lab Results: Total Bilirubin 0.3 mg/dL (0.2-1.3) 08/31/18 00:53 AST 66 U/L (17-59) H D 08/31/18 00:53 ALT 49 U/L (21-72) 08/31/18 00:53 Alkaline Phosphatase 53 U/L (38-126) 08/31/18 00:53 Total Protein 8.1 g/dL (6.3-8.3) 08/31/18 00:53 Albumin 4.6 g/dL (3.5-5.0) 08/31/18 00:53 Globulin 3.4 gm/dL (2.2-3.9) 08/31/18 00:53 Albumin/Globulin Ratio 1.4 (1.0-2.1) 08/31/18 00:53 Urine Color Yellow (YELLOW) 08/31/18 01:00 Urine Clarity Hazy (Clear) 08/31/18 01:00 Urine pH 5.0 (5.0-8.0) 08/31/18 01:00 Ur Specific [place] 1.030 (1.003-1.030) 08/31/18 01:00 Urine Protein Negative mg/dL (NEGATIVE) 08/31/18 01:00 Urine Glucose (UA) Normal mg/dL (Normal) 08/31/18 01:00 Urine Ketones Negative mg/dL (NEGATIVE) 08/31/18 01:00 Urine Blood Negative (NEGATIVE) 08/31/18 01:00 Urine Nitrate Negative (NEGATIVE) 08/31/18 01:00 Urine Bilirubin Negative (NEGATIVE) 08/31/18 01:00 Urine Urobilinogen 2.0 mg/dL (0.2-1.0) 08/31/18 01:00 Ur Leukocyte Esterase Neg Angel/uL (Negative) 08/31/18 01:00 Urine WBC (Auto) 1 /hpf (0-5) 08/31/18 01:00 Urine RBC (Auto) 1 /hpf (0-3) 08/31/18 01:00 Ur Squamous Epith Cells < 1 /hpf (0-5) 08/31/18 01:00 O2 Sat by Pulse Oximetry: 97 (Room air) Pulse Ox Interpretation: Normal Progress Note: Blood work and urinalysis ordered. Crisis notified. Disposition Discussed With .: Ilan Conde Doctor Will See Patient In The: Hospital Counseled Patient/Family Regarding: Diagnosis - Disposition Disposition: HOSPITALIZED Disposition Time: 05:46 Condition: STABLE Forms: [employer] ([place]) - POA Present On Arrival: None - Clinical Impression Clinical Impression: Opiate use, Alcohol abuse - Scribe Statement The provider has reviewed the documentation as recorded by the Scribela Ontiveros All medical record entries made by the Scribe were at my direction and personally dictated by me. I have reviewed the chart and agree that the record accurately reflects my personal performance of the history, physical exam, medical decision making, and the department course for this patient. I have also personally directed, reviewed, and agree with the discharge instructions and disposition.
--- NOTE | 2018-08-31 08:05 | PCM.BM ---
<Geeta Huffman - Last Filed: 08/31/18 08:03> Treatment Plan Problems - Problems identified on initial assessmt Defensive Coping Date Initiated: 08/31/18 Assessment reference: NA Status: Active chronic low self esteem Date Initiated: 08/31/18 Assessment reference: NA Status: Active Low motivation to change Date Initiated: 08/31/18 Assessment reference: NA Status: Active Treatment assets and liabiliti Patient Assests: adapts well, cooperative, ADL independent, physically healthy, negotiates basic needs, cognitively intact Patient Liabilities: substance abuse - Milieu Protocol Maintain good personal hygiene: daily Encourage regular showers, daily Remind patient to perform daily oral care, daily Assist patient to perform ADL's Conduct patient checks and document Observation sheet: Q15 minutes Maintain personal safety: every shift Educate patient to report safety concerns to staff, every shift Monitor environment for contraband/sharps Medication safety: Monitor for expected outcome, potential side effects: every shift, Assess barriers to learning: every shift, Assess readiness for medication education: every shift <Ilan Conde - Last Filed: 09/01/18 00:51> - Diagnosis (1) Bipolar affective, depress, severe Status: Acute Interventions: 09/01/18 00:51 * Assess/adjust medications daily and /or as needed * See patient on an individual basis 7x/week to assess level of manic behaviors and stability * Discuss risks, benefits, side effects and alternatives of medications * (2) Opioid use disorder, severe, dependence Status: Acute Interventions: 09/01/18 00:51 * Assess 7x/week regarding severity of withdrawal * Educate regarding risks, benefits, side effects and alternatives of medications * Use Motivational Interviewing for abstinence * Use CBT for relapse prevention * Medication management for withdrawal symptoms * Encourage medication assisted treatment *
[2018-08-31] MEDS ORDERED: Aluminum Hydroxide/Magnesium Hydroxide Susp (30 mL) PO PRN (08:52)
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
--- NOTE | 2018-09-01 11:38 | PCM.PYCHPN ---
Psychiatric Progress Note - Psychiatric Progress Note Patient seen today, length of contact: 16 min Patient Chief Complaint: "I am very anxious" Problems Identified/Issues Discussed: The pt is seen, chart reviewed, case discussed with staff. Support and psychoeducation given, CBT and MN used briefly Pt is improving slowly and needs more time, still has ongoing symptoms. No SEs from medications, risks discussed. After care discussed Medication Change: Yes (detox changes daily) Medical Record Reviewed: Yes Mental Status Examination - Cognitive Function Orientation: Person, Place, Situation, Time Memory: Intact Attention: WNL Concentration: Poor Association: WNL Fund of Knowledge: WNL - Mood Mood: Depressed, Anxious - Affect Affect: Constricted - Speech Speech: Appropriate - Formal Thought Process Formal Thought Process: No Impairment - Suicidal Ideation Suicidal Ideation: No - Homicidal Ideation Homicidal Ideation: No Goal/Treatment Plan - Goal/Treatment Plan Need for Continued Stay: Discharge may exacerbated symptoms, Severe functional impairment Progress Toward Problem(s) and Goals/Treatment Plan: Taper with methadone Librium scheduled and as needed Seroquel for bipolar d/o As needed medications All risks, benefits and alternatives of the meds discussed, and the pt agreed and understood. Attend groups and activities Supportive therapy and psychoeducation MN for abstinence CBT for relapse prevention Encourage MAT Refer to rehab or IOP, and self-help groups Teach healthy lifestyle methods, i.e. diet, exercise, meditation Smoking cessation with MN Nicotine patch if needed Estimated Date of D/C: 09/04/18
--- NOTE | 2018-09-02 12:15 | PCM.PYCHPN ---
Psychiatric Progress Note - Psychiatric Progress Note Patient seen today, length of contact: 15 min Patient Chief Complaint: "I am very anxious" Problems Identified/Issues Discussed: The pt is seen again, chart reviewed, and case is discussed with the team. The pt denies any side-effects from meds. Attends activities and groups, brief individual therapy provided Not ready for discharge due to ongoing symptoms and high relapse risk. After care discussed again. Medication Change: Yes (detox changes daily) Medical Record Reviewed: Yes Mental Status Examination - Cognitive Function Orientation: Person, Place, Situation, Time Memory: Intact Attention: WNL Concentration: Poor Association: WNL Fund of Knowledge: WNL - Mood Mood: Depressed, Anxious - Affect Affect: Constricted - Speech Speech: Appropriate - Formal Thought Process Formal Thought Process: No Impairment - Suicidal Ideation Suicidal Ideation: No - Homicidal Ideation Homicidal Ideation: No Goal/Treatment Plan - Goal/Treatment Plan Need for Continued Stay: Discharge may exacerbated symptoms, Severe functional impairment Progress Toward Problem(s) and Goals/Treatment Plan: Taper with methadone Librium scheduled and as needed Seroquel for bipolar d/o As needed medications All risks, benefits and alternatives of the meds discussed, and the pt agreed and understood. Attend groups and activities Supportive therapy and psychoeducation NM for abstinence CBT for relapse prevention Encourage MAT Refer to rehab or IOP, and self-help groups Teach healthy lifestyle methods, i.e. diet, exercise, meditation Smoking cessation with NM Nicotine patch if needed Estimated Date of D/C: 09/04/18
[2018-09-03 20:46] VITALS: RESP 18
--- NOTE | 2018-09-04 02:33 | PCM.PYCHPN ---
Psychiatric Progress Note - Psychiatric Progress Note Patient seen today, length of contact: 15 min Patient Chief Complaint: "I am very anxious" Problems Identified/Issues Discussed: The pt is seen again, chart reviewed, and case is discussed with the team. The pt denies any side-effects from meds. Attends activities and groups, brief individual therapy provided Not ready for discharge due to ongoing symptoms and high relapse risk. After care discussed again. Medication Change: Yes (detox changes daily) Medical Record Reviewed: Yes Mental Status Examination - Cognitive Function Orientation: Person, Place, Situation, Time Memory: Intact Attention: WNL Concentration: Poor Association: WNL Fund of Knowledge: WNL - Mood Mood: Depressed, Anxious - Affect Affect: Constricted - Speech Speech: Appropriate - Formal Thought Process Formal Thought Process: No Impairment - Suicidal Ideation Suicidal Ideation: No - Homicidal Ideation Homicidal Ideation: No Goal/Treatment Plan - Goal/Treatment Plan Need for Continued Stay: Discharge may exacerbated symptoms, Severe functional impairment Progress Toward Problem(s) and Goals/Treatment Plan: Taper with methadone Librium scheduled and as needed Seroquel for bipolar d/o As needed medications All risks, benefits and alternatives of the meds discussed, and the pt agreed and understood. Attend groups and activities Supportive therapy and psychoeducation MA for abstinence CBT for relapse prevention Encourage MAT Refer to rehab or IOP, and self-help groups Teach healthy lifestyle methods, i.e. diet, exercise, meditation Smoking cessation with MA Nicotine patch if needed Estimated Date of D/C: 09/04/18
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
[2018-09-04 09:16] VITALS: BP 106/70; PULSE 76; TEMP 97.6; O2SAT 96
== END 2018-09-04 09:39 | disposition home or self-care (01) | DRG 430 ==
LOC: C.ER 23:40 → C.9E 08-31 05:49 → C.7D 08-31 06:05 → OBSVTOIN 08-31 10:24
PROVIDERS: ADMIT Psychiatry & Neurology Psychiatry; ATTEND Psychiatry & Neurology Psychiatry
DX: F31.4 Bipolar disorder, current episode depressed, severe, without psychotic features (principal); F11.23 Opioid dependence with withdrawal; F13.10 Sedative, hypnotic or anxiolytic abuse, uncomplicated; F12.90 Cannabis use, unspecified, uncomplicated; F17.210 Nicotine dependence, cigarettes, uncomplicated; F90.9 Attention-deficit hyperactivity disorder, unspecified type; F10.10 Alcohol abuse, uncomplicated; Z59.0 Homelessness

== ENCOUNTER 2018-09-04 21:07 | Emergency (ER) | payer OTHER ==
[2018-09-04 21:07] VITALS: BMI 27.3
[2018-09-04 21:40] VITALS: BP 115/77; PULSE 70; RESP 14; TEMP 98.7; O2SAT 99
--- NOTE | 2018-09-04 21:53 | C.PDOC ---
History Of Present Illness 53 year old male homeless presents to the ED for evaluation of feeling depressed. Patient states he was discharged from detox this morning, used today. Patient denies SI plan, HI, hallucinations, other complaints. Time Seen by Provider: 09/04/18 21:50 Chief Complaint (Nursing): Psychiatric Evaluation History Per: Patient History/Exam Limitations: no limitations Onset/Duration Of Symptoms: Hrs Current Symptoms Are (Timing): Still Present Suicide/Self Injury Attempted (Context): None Modifying Factor(s): Narcotics Associated Symptoms: Depression. denies: Suicidal Thoughts, Suicidal Plan Recent travel outside of the [place]: No Additional History Per: Patient Past Medical History Reviewed: Historical Data, Nursing Documentation, Vital Signs Vital Signs: Last Vital Signs Temp 98.7 F 09/04/18 21:35 Pulse 70 09/04/18 21:35 Resp 14 09/04/18 21:35 BP 115/77 09/04/18 21:35 Pulse Ox 99 09/04/18 21:35 Primary Care Provider: FAMILY PROVIDER,NO - Medical History PMH: Anxiety, Bipolar Disorder, Depression Denies: Diabetes, Hepatitis, HIV, HTN, Chronic Kidney Disease, Seizures, Sexually Transmitted Disease Surgical History: No Surg Hx - [facility] Procedures DETOXIFICATION SERVICES FOR SUBSTANCE ABUSE TREATMENT (07/18/18) GROUP [employer] SITE MONITOR FOR SUBSTANCE ABUSE TREATMENT, PSYCHOEDUCATION (07/18/18) GROUP SATELLITE PROJECT SITE MONITOR FOR SUBSTANCE ABUSE, COGNITIVE BEHAVIORAL (07/18/18) GROUP PSYCHOTHERAPY (07/18/18) INDIV SATELLITE PROJECT SITE MONITOR FOR SUBSTANCE ABUSE TREATMENT, CONTINUING CARE (03/31/15) INDIV PSYCHOTHERAPY FOR SUBSTANCE ABUSE TREATMENT, SUPPORT (07/18/18) INDIV PSYCHOTHERAPY FOR SUBSTANCE ABUSE, COGNITIV BEHAVIORAL (07/18/18) INDIV PSYCHOTHERAPY FOR SUBSTANCE ABUSE, PSYCHOEDUCATION (07/18/18) INDIVIDUAL PSYCHOTHERAPY, COGNITIVE-BEHAVIORAL (07/18/18) INDIVIDUAL PSYCHOTHERAPY, SUPPORTIVE (07/18/18) INJECT/INFUSE NEC (03/03/13) MEDICATION MANAGEMENT (04/02/18) Family History: States: Unknown Family Hx - Social History Hx Tobacco Use: Yes Hx Alcohol Use: Yes Hx Substance Use: Yes - Immunization History Hx Tetanus Toxoid Vaccination: No Hx Influenza Vaccination: No Hx Pneumococcal Vaccination: No Review Of Systems Constitutional: Negative for: Fever, Chills Cardiovascular: Negative for: Chest Pain Respiratory: Negative for: Shortness of Breath Gastrointestinal: Negative for: Nausea, Vomiting, Abdominal Pain Skin: Negative for: Rash Psych: Positive for: Depression. Negative for: Suicidal ideation Physical Exam - Physical Exam Appears: Non-toxic, No Acute Distress Skin: Normal Color, Warm, Dry Head: Atraumatic, Normacephalic Eye(s): bilateral: Normal Inspection Neck: Normal ROM, Supple Chest: Symmetrical Cardiovascular: Rhythm Regular Respiratory: Normal Breath Sounds, No Rales, No Rhonchi, No Wheezing Gastrointestinal/Abdominal: Soft, No Tenderness, No Guarding, No Rebound Extremity: Normal ROM, No Tenderness, No Swelling Neurological/Psych: Oriented x3, Normal Speech, Normal Cognition Gait: Steady ED Course And Treatment - Laboratory Results Result Diagrams: 09/04/18 22:10 09/04/18 22:10 O2 Sat by Pulse Oximetry: 99 (ON RA) Pulse Ox Interpretation: Normal Medical Decision Making Medical Decision Making: pending medical clearcance Plan: * Labs * UA cleard by crisis. Disposition - Disposition Disposition: HOME/ ROUTINE Disposition Time: 22:00 Condition: STABLE Additional Instructions: follow up as directed by crisis. retur to er with worsening. Instructions: Depression Forms: [employer] ([place]) - Clinical Impression Clinical Impression: Depression - Scribe Statement The provider has reviewed the documentation as recorded by the Scribe Tk Billy All medical record entries made by the Scribe were at my direction and personally dictated by me. I have reviewed the chart and agree that the record accurately reflects my personal performance of the history, physical exam, medical decision making, and the department course for this patient. I have also personally directed, reviewed, and agree with the discharge instructions and disposition.
[2018-09-04 22:16] LABS: BASO % 0.3 % (0.0-2.0); EOS # 0.3 K/uL (0.0-0.7); EOS % 3.6 % (0.0-4.0); HEMOGLOBIN 14.5 g/dL (12.0-18.0); LYMPH % 27.6 % (20.0-40.0); MEAN CELL VOLUME 91.3 fL (80.0-94.0); MEAN CORPUSCULAR HEMOGLOBIN 30.7 pg (27.0-31.0); MEAN CORPUSCULAR HGB CONC 33.6 g/dL (33.0-37.0); MEAN PLATELET VOLUME 9.1 fL (7.2-11.7); MONO # 0.6 K/uL (0.0-0.8); MONO % 7.9 % (0.0-10.0); NEUT # 4.3 K/uL (1.8-7.0); NEUT % 60.6 % (50.0-75.0); RBC 4.72 Mil/uL (4.40-5.90); RED CELL DISTRIBUTION WIDTH 13.6 % (11.5-14.5); WHITE BLOOD COUNT 7.1 K/uL (4.8-10.8)
[2018-09-04 22:21] LABS: URINE BACTERIA RARE (<OCC); URINE BILIRUBIN NEGATIVE (NEGATIVE); URINE BLOOD NEGATIVE (NEGATIVE); URINE CLARITY Clear (Clear); URINE COLOR Yellow (YELLOW); URINE GLUCOSE (UA) NORMAL (Normal); URINE LEUKOCYTE ESTERASE NEG Leu/uL (Negative); URINE PROTEIN NEGATIVE (NEGATIVE); URINE UROBILINOGEN NORMAL mg/dL (0.2-1.0)
[2018-09-04 22:35] LABS: BARBITURATES, UR NEGATIVE (NEGATIVE); BENZODIAZEPINES, UR NEGATIVE (NEGATIVE); PHENCYCLIDINE, UR NEGATIVE (NEGATIVE)
[2018-09-04 22:39] LABS: ALB/GLOB RATIO 1.2 (1.0-2.1); ALBUMIN 4.5 g/dL (3.5-5.0); ALT/SGPT 41 U/L (21-72); AST/SGOT 35 U/L (17-59); BLOOD UREA NITROGEN 13 mg/dL (9-20); CALCIUM 9.7 mg/dl (8.6-10.4); GFR NON-AFRICAN AMERICAN > 60
[2018-09-04 22:56] LABS: OPIATES, UR POSITIVE (NEGATIVE)
== END 2018-09-05 00:22 | disposition home or self-care (01) ==
LOC: C.ER 21:07
DX: F32.9 Major depressive disorder, single episode, unspecified (principal); Z59.0 Homelessness; Z72.0 Tobacco use